=== PATIENT | male | born 1945 | race Caucasian/White ===

== ENCOUNTER → 2017-03-09 | Outpatient (CLI) | payer MEDICARE, OTHER ==
--- NOTE | 2017-03-09 12:01 | CT ---
EXAMINATION TYPE: CT chest wo con DATE OF EXAM: 03/09/2017 11:51 AM COMPARISON: CTA chest March 22, 2016. HISTORY: Shortness of breath per order. Difficulty breathing since recent heart attack per patient. CT DLP: 269 mGycm. Automated Exposure Control for Dose Reduction was Utilized. TECHNIQUE: CT scan of the thorax is performed without IV contrast. FINDINGS: LUNGS: There is background of emphysematous change redemonstrated. There is subpleural fibrosis and p eripheral reticulation identified bilaterally involving upper and lower lungs most prominent involvin g the right lung versus opposite left lung and more prominent in the lower lungs versus upper lungs. No significant progression from prior CT is seen. No new focal groundglass opacity or consolidation i s present. No pleural effusion or pneumothorax is seen. Mild bronchiectatic change in the left lower lobe is redemonstrated. Some areas of honeycombing along the periphery are noted MEDIASTINUM: Lack of IV contrast is noted to limit evaluation for mediastinal and especially hilar ad enopathy. There are no definitive greater than 1 cm new hilar or mediastinal lymph nodes. Prominent b ut subcentimeter paratracheal and subcarinal lymph nodes are redemonstrated and felt stable. Cardiome donna is again seen. No significant pericardial effusion is noted. Post CABG changes with mediastinal clips and sternal wires is redemonstrated. OTHER: Some mild fat replaced atrophy of pancreas is again seen. There are some calcifications scatte red throughout the spleen redemonstrated. Multilevel spurring in the spine is again seen. IMPRESSION: Chronic emphysematous change with pulmonary fibrosis seen bilaterally and diffusely but m ost pronounced in the periphery of the bilateral lower lobes, consider IPF. No convincing evidence fo r acute pulmonary process. No significant progression from prior CT is noted. Background of cardiomeg rae and post-CABG changes redemonstrated.
== END ==
LOC: RADCTMAIN 11:22
PROVIDERS: ATTEND Family Medicine
DX: J43.9 Emphysema, unspecified (principal); J84.10 Pulmonary fibrosis, unspecified; I51.7 Cardiomegaly
CPT/HCPCS: 71250; 93880; 93922

== ENCOUNTER → 2017-09-01 | Outpatient (CLI) | payer MEDICARE, OTHER ==
--- NOTE | 2017-09-01 08:56 | CT ---
EXAMINATION TYPE: CT chest wo con DATE OF EXAM: 09/01/2017 COMPARISON: 03/09/2017 HISTORY: Pulmonary fibrosis CT DLP: 748 mGycm. Automated Exposure Control for Dose Reduction was Utilized. TECHNIQUE: CT scan of the thorax is performed without IV contrast. FINDINGS: LUNGS: Peripheral honeycombing and reticular interstitial lobular thickening are seen diffusely throu ghout the lungs with a basilar gradient. The right lung is further progressed in the left. Right grea ter than left varicose type bronchiectasis also predominates in the basilar distribution and is simil ar to the prior. There is mild progression in comparison to the prior exam of 03/09/2017. No new pulmo nary mass is seen. Few areas of honeycombing are present on the right within the middle lobe, upper l obe and lower lobe. This is superimposed upon centrilobular mild centrilobular emphysematous changes. The lungs are grossly clear, there is no concerning parenchymal mass or nodule identified. There i s no pleural effusion or pneumothorax seen. The tracheobronchial tree is patent. MEDIASTINUM: Lack of IV contrast is noted to limit evaluation for mediastinal and especially hilar ad enopathy. There are no definitive greater than 1 cm hilar or mediastinal lymph nodes. Nonenlarged me diastinal lymph nodes and hilar lymph nodes are present. No axillary adenopathy. No cardiomegaly or p ericardial effusion is seen. OTHER: Mild pancreatic atrophy and punctate 2 mm nonobstructing bilateral renal calculi are seen in t he upper poles. Punctate choleliths are also noted as well as benign splenic granulomatous changes. S mall gastroesophageal hiatal hernia is noted. Multilevel degenerative changes of the thoracic spine a re seen. Median sternotomy wires are present. Post CABG changes are again present. IMPRESSION: 1. Mildly progressed pulmonary fibrosis superimposed upon emphysematous change. Again IPF is the lead ing differential diagnosis. No new focal consolidation. 2. New gynecomastia bilaterally, right greater than left, which may be drug-induced. Correlate with t he patient's medications. 3. Redemonstration of cardiomegaly and postoperative changes of the chest. 4. Incidental note of cholelithiasis, benign splenic granulomas, small gastroesophageal hiatal hernia , and nonobstructing punctate renal calculi.
== END | disposition home or self-care (01) ==
LOC: RADCTMAIN 08:07
PROVIDERS: ATTEND Internal Medicine Critical Care Medicine
DX: J84.10 Pulmonary fibrosis, unspecified (principal); J43.9 Emphysema, unspecified; N62 Hypertrophy of breast; I51.7 Cardiomegaly; Z98.890 Other specified postprocedural states
CPT/HCPCS: 71250

== ENCOUNTER 2018-05-13 18:53 | Inpatient (IN) | payer MEDICARE, OTHER ==
[2018-05-13] MEDS ORDERED: SODIUM CHLORIDE 0.9% 500 ML IV STA (18:58)
[2018-05-13] MEDS ORDERED: ASPIRIN 81 MG PO STA (18:58)
[2018-05-13 19:13] LABS: Basophils # (A) 0.1 k/uL (0-0.2); Basophils % (A) 1 %; Eosinophils # (A) 0.3 k/uL (0-0.7); Eosinophils % (A) 4 %; HCT 40.8 % (39.0-53.0); HGB 13.5 gm/dL (13.0-17.5); Lymphocytes # (A) 1.8 k/uL (1.0-4.8); Lymphocytes % (A) 24 %; MCH 30.6 pg (25.0-35.0); MCHC 33.2 g/dL (31.0-37.0); MCV 92.2 fL (80.0-100.0); Mean Platelet Volume 7.3; Monocytes # (A) 0.5 k/uL (0-1.0); Monocytes % (A) 7 %; Neutrophils # (A) 4.7 k/uL (1.3-7.7); Neutrophils % (A) 63 %; Platelet Count 210 k/uL (150-450); RBC 4.43 m/uL (4.30-5.90); RDW 14.2 % (11.5-15.5); WBC 7.4 k/uL (3.8-10.6)
[2018-05-13] MEDS ORDERED: HEPARIN SODIUM,PORCINE 5,000 UNIT/ML 1 ML VIAL IV ONE (19:13)
[2018-05-13] MEDS ORDERED: ATORVASTATIN 80 MG TAB PO STA (19:14)
[2018-05-13 19:23] LABS: Albumin 3.9 g/dL (3.5-5.0); Calcium 9.1 mg/dL (8.4-10.2); Magnesium 1.7 mg/dL (1.6-2.3); Potassium 4.7 mmol/L (3.5-5.1); Total Bilirubin 0.2 mg/dL (0.2-1.3); Total Protein 6.5 g/dL (6.3-8.2)
[2018-05-13 19:33] LABS: Partial Thromboplastin Time 22.4 sec (22.0-30.0); Prothrombin Time 9.7 sec (9.0-12.0)
[2018-05-13 19:35] LABS: Creatine Kinase MB 1.8 ng/mL (0.0-2.4)
[2018-05-13 19:39] LABS: Troponin I 0.085 ng/mL (0.000-0.034)
[2018-05-13] MEDS: METOPROLOL TARTRATE 5 MG/5 ML VIAL IVP STA ×2 (19:42→19:49)
[2018-05-13] MEDS: HEPARIN SOD,PORK IN 0.45% NACL 25,000 UNIT in 0.45% NACL 1 500ML.BAG IV SCH (19:45)
--- NOTE | 2018-05-13 20:48 | XR ---
EXAMINATION TYPE: XR chest 1V DATE OF EXAM: 05/13/2018 COMPARISON: 03/21/[address] 09/01/2017 HISTORY: 73-year-old male with chest pain, possible STEMI TECHNIQUE: Single frontal view of the chest is obtained. FINDINGS: Median sternotomy wires are present. Heart mild to moderately enlarged. Diffuse interstitial and airs pace opacities. No significant pleural effusion seen on the frontal view. IMPRESSION: Diffuse bilateral pulmonary edema.
[2018-05-13] MEDS ORDERED: FUROSEMIDE 10 MG/ML 4 ML VIAL IV STA (20:52)
[2018-05-13] MEDS ORDERED: NALOXONE 0.4 MG/ML 1 ML VIAL IV PRN (21:02)
[2018-05-13] MEDS ORDERED: ONDANSETRON 4 MG/2 ML VIAL IVP PRN (21:02)
[2018-05-13] MEDS ORDERED: MORPHINE SULFATE 2 MG/ML SYRINGE IV PRN (21:02)
[2018-05-13] MEDS ORDERED: INSULIN REGULAR 100 UNIT/ML VIAL IV ONE (21:06)
[2018-05-13] MEDS ORDERED: NITROGLYCERIN SL TABS 0.4 MG TAB SUBLINGUAL PRN (21:07)
--- NOTE | 2018-05-13 21:18 | ED ---
General Adult HPI - General Chief complaint: Chest Pain Stated complaint: Poss STEMI Time Seen by Provider: 05/13/18 18:58 Source: patient, EMS, RN notes reviewed, old records reviewed Mode of arrival: EMS Limitations: no limitations - History of Present Illness Initial comments: 73-year-old male presents with chest pain. Patient was brought in as priority [address] segment elevated DE. EKG by EMS was poor quality, there didn't appear to be some ST segment elevation in lead 3. Patient was given aspirin and nitroglycerin in route and was chest pain-free at the time my evaluation. His symptoms began approximately one hour prior to arrival. He does have history of coronary artery disease with bypass graft and previous stenting. He is on aspirin and Plavix. Recently his metoprolol was reduced secondary to low blood pressure. He also has history of primary fibrosis and congestive heart failure. - Related Data Home Medications Medication Instructions Recorded Confirmed Atenolol [Tenormin] 25 mg PO HS 03/16/14 10/18/16 Insulin Glargine [Lantus] 24 units SQ HS 03/16/14 10/18/16 Pioglitazone HCl [Actos] 45 mg PO AC-LUNCH 03/16/14 10/18/16 sitaGLIPtin [Januvia] 100 mg PO AC-LUNCH 03/16/14 10/18/16 Aspirin EC [Ecotrin Low Dose] 81 mg PO DAILY 03/22/16 10/18/16 Losartan [Cozaar] 25 mg PO QAM 05/05/16 10/18/16 Furosemide [Lasix] 80 mg PO QAM 05/27/16 10/18/16 B Complex-Vit C-Vit E-Zinc [Z-Bec] 1 tab PO DAILY 07/28/16 10/18/16 Clopidogrel [Plavix] 75 mg PO QAM 08/26/16 10/18/16 metFORMIN HCL 1,000 mg PO HS 08/26/16 10/18/16 metFORMIN HCL [Glucophage] 500 mg PO QAM 08/26/16 10/18/16 traZODone HCL 50 mg PO HS 09/07/16 10/18/16 Simvastatin [Zocor] 80 mg PO HS 10/12/16 10/18/16 Sucralfate [Carafate] 1 gm PO AC-TID 10/12/16 10/18/16 glipiZIDE [Glucotrol] 5 mg PO HS 10/12/16 10/18/16 glipiZIDE [Glucotrol] 10 mg PO AC-BRKFST 10/12/16 10/18/16 Allergies Allergy/AdvReac Type Severity Reaction Status Date / Time No Known Allergies Allergy Verified 10/18/16 07:32 Review of Systems ROS Statement: Those systems with pertinent positive or pertinent negative responses have been documented in the HPI. ROS Other: All systems not noted in ROS Statement are negative. Past Medical History Past Medical History: Heart Failure, Diabetes Mellitus, Deep Vein Thrombosis ( DVT), GERD/Reflux, Hyperlipidemia, Hypertension, Vascular Disorder Additional Past Medical History / Comment(s): DVT RT LEG 2008, HX OF DIABETIC ULCER LEFT GREAT TOE-NOW HEALED, STENTS LEFT LEG, SWELLING IN LEGS AND FEET. History of Any Multi-Drug Resistant Organisms: MRSA Date of last positivie culture/infection: 06/30/16 MDRO Source:: left foot Past Surgical History: Coronary Bypass/CABG, Heart Catheterization, Heart Catheterization With Stent, Hernia Repair, Orthopedic Surgery Additional Past Surgical History / Comment(s): all toes on the right foot amputated 04/2010, BILAT CATARACTS ,carotid endartectomy 09/07/2016 ,. 06/16/16 ARTHRECTOMY WITH STENT LEFT FEMORAL ARTERY. Past Anesthesia/Blood Transfusion Reactions: No Reported Reaction Date of Last Stent Placement:: 08/19/2010 Past Psychological History: No Psychological Hx Reported Smoking Status: Former smoker Past Alcohol Use History: None Reported Past Drug Use History: None Reported - Past Family History Father Family Medical History: Cancer Additional Family Medical History / Comment(s): passed from a DE at 63 Mother Family Medical History: Diabetes Mellitus, Myocardial Infarction (DE) Additional Family Medical History / Comment(s): passed from a DE at 63 Sister(s) Family Medical History: Cancer General Exam Limitations: no limitations General appearance: alert, in no apparent distress Head exam: Present: atraumatic, normocephalic Eye exam: Present: normal appearance, PERRL ENT exam: Present: normal exam Neck exam: Present: normal inspection. Absent: tenderness, meningismus Respiratory exam: Present: rales Cardiovascular Exam: Present: normal rhythm, tachycardia GI/Abdominal exam: Present: soft. Absent: distended, tenderness, guarding Extremities exam: Present: normal capillary refill, other (Mid foot amputation on the right). Absent: pedal edema Neurological exam: Present: alert, oriented X3, CN II-XII intact. Absent: motor sensory deficit Psychiatric exam: Present: normal affect, normal mood Skin exam: Present: warm, dry, intact. Absent: cyanosis, diaphoretic Course Vital Signs 05/13/18 05/13/18 05/13/18 18:54 19:25 19:37 Temperature 98.7 F Pulse Rate 96 Respiratory 131 H 17 Rate Blood Pressure 146/77 171/86 162/79 O2 Sat by Pulse 82 L 97 Oximetry 05/13/18 05/13/18 05/13/18 19:40 19:45 20:00 Temperature Pulse Rate 110 H 84 76 Respiratory 16 16 Rate Blood Pressure 167/78 161/72 O2 Sat by Pulse 95 93 L Oximetry 05/13/18 05/13/18 20:15 21:06 Temperature Pulse Rate 96 Respiratory 17 Rate Blood Pressure 155/76 138/76 O2 Sat by Pulse 95 Oximetry EKG Findings - EKG Comments: EKG Findings:: EKG obtained at 1856, sinus tachycardia with incomplete left bundle, there is ST segment depression in lead 1, aVL, and the lateral precordial leads, there is concern for ST segment elevation in lead 3. Repeat EKG shows sinus rhythm with first-degree AV block, there is incomplete left bundle, ST segment elevation remains in lead 3, there is ST segment depression in V1, aVL, and lateral precordial leads. Medical Decision Making - Medical Decision Making 73-year-old male presents as a priority 1, prehospital EKG shows ST segment elevation in lead 3, patient is pain-free at the time of arrival. Case is discussed with Dr. Galaviz, EKGs are faxed, given the fact there is small amount of ST segment elevation in lead [address] segment elevation in the adjacent leads of 2 and aVF as well as concern for a component of demand ischemia given a heart rate of 130 patient will not be taken to the [facility] as an ST segment elevated DE. I agree with this decision, this is not a clear ST segment elevated DE. Patient is immediately heparinized, he was given aspirin nitroglycerin by EMS. He is given labetalol for heart rate control and concern for demand ischemia. Patient remains asymptomatic and chest pain-free. Chest x-ray does show diffuse pulmonary edema, patient has history of heart failure, he is given Lasix in the emergency department and repeat echo will be obtained. Hemoglobin is stable, initial troponin is 0.085, there is mild elevation in the BNP consistent with chest x-ray. Patient is continued on heparin, he will be admitted for serial cardiac enzymes and cardiology consultation. Case discussed with Dr. Fernandez, who will accept admission - Lab Data Result diagrams: 05/13/18 18:51 05/13/18 18:51 Lab Results 05/13/18 05/13/18 05/13/18 Range/Units 18:51 18:51 18:51 WBC 7.4 (3.8-10.6) k/uL RBC 4.43 (4.30-5.90) m/uL Hgb 13.5 (13.0-17.5) gm/dL Hct 40.8 (39.0-53.0) % MCV 92.2 (80.0-100.0) fL MCH 30.6 (25.0-35.0) pg MCHC 33.2 (31.0-37.0) g/dL RDW 14.2 (11.5-15.5) % Plt Count 210 (150-450) k/uL Neutrophils % 63 % Lymphocytes % 24 % Monocytes % 7 % Eosinophils % 4 % Basophils % 1 % Neutrophils # 4.7 (1.3-7.7) k/uL Lymphocytes # 1.8 (1.0-4.8) k/uL Monocytes # 0.5 (0-1.0) k/uL Eosinophils # 0.3 (0-0.7) k/uL Basophils # 0.1 (0-0.2) k/uL PT (9.0-12.0) sec INR (<1.2) APTT (22.0-30.0) sec Sodium 141 (137-145) mmol/L Potassium 4.7 (3.5-5.1) mmol/L Chloride 102 (98-107) mmol/L Carbon Dioxide 28 (22-30) mmol/L Anion Gap 11 mmol/L BUN 19 (9-20) mg/dL Creatinine 1.20 (0.66-1.25) mg/dL Est GFR (CKD-EPI)AfAm 70 (>60 ml/min/1.73 sqM) Est GFR (CKD-EPI)NonAf 61 (>60 ml/min/1.73 sqM) Glucose 468 H* (74-99) mg/dL Calcium 9.1 (8.4-10.2) mg/dL Magnesium 1.7 (1.6-2.3) mg/dL Total Bilirubin 0.2 (0.2-1.3) mg/dL AST 21 (17-59) U/L ALT 31 (21-72) U/L Alkaline Phosphatase 129 H (38-126) U/L Total Creatine Kinase 67 (55-170) U/L CK-MB (CK-2) 1.8 (0.0-2.4) ng/mL CK-MB (CK-2) Rel Index 2.7 Troponin I 0.085 H* (0.000-0.034) ng/mL NT-Pro-B Natriuret Pep pg/mL Total Protein 6.5 (6.3-8.2) g/dL Albumin 3.9 (3.5-5.0) g/dL 05/13/18 05/13/18 Range/Units 18:51 18:51 WBC (3.8-10.6) k/uL RBC (4.30-5.90) m/uL Hgb (13.0-17.5) gm/dL Hct (39.0-53.0) % MCV (80.0-100.0) fL MCH (25.0-35.0) pg MCHC (31.0-37.0) g/dL RDW (11.5-15.5) % Plt Count (150-450) k/uL Neutrophils % % Lymphocytes % % Monocytes % % Eosinophils % % Basophils % % Neutrophils # (1.3-7.7) k/uL Lymphocytes # (1.0-4.8) k/uL Monocytes # (0-1.0) k/uL Eosinophils # (0-0.7) k/uL Basophils # (0-0.2) k/uL PT 9.7 (9.0-12.0) sec INR 1.0 (<1.2) APTT 22.4 (22.0-30.0) sec Sodium (137-145) mmol/L Potassium (3.5-5.1) mmol/L Chloride (98-107) mmol/L Carbon Dioxide (22-30) mmol/L Anion Gap mmol/L BUN (9-20) mg/dL Creatinine (0.66-1.25) mg/dL Est GFR (CKD-EPI)AfAm (>60 ml/min/1.73 sqM) Est GFR (CKD-EPI)NonAf (>60 ml/min/1.73 sqM) Glucose (74-99) mg/dL Calcium (8.4-10.2) mg/dL Magnesium (1.6-2.3) mg/dL Total Bilirubin (0.2-1.3) mg/dL AST (17-59) U/L ALT (21-72) U/L Alkaline Phosphatase (38-126) U/L Total Creatine Kinase (55-170) U/L CK-MB (CK-2) (0.0-2.4) ng/mL CK-MB (CK-2) Rel Index Troponin I (0.000-0.034) ng/mL NT-Pro-B Natriuret Pep 1510 pg/mL Total Protein (6.3-8.2) g/dL Albumin (3.5-5.0) g/dL Critical Care Time Critical Care Time: Yes Total Critical Care Time: 35 Disposition Clinical Impression: NSTEMI (non-ST elevated myocardial infarction), Congestive heart failure Disposition: ADMITTED IP TO THIS [facility] Condition: Serious Is patient prescribed a controlled substance at d/c from ED?: No Referrals: Roque Underwood DO [Primary Care Provider] - 1-2 days Decision to Admit Reason: Admit from EC Decision Date: 05/13/18 Decision Time: 21:17
[2018-05-13] MEDS ORDERED: INSULIN DETEMIR 100 UNIT/ML 10 ML VIAL SQ SCH (23:00)
[2018-05-13] MEDS ORDERED: glipiZIDE 5 MG TAB PO SCH (23:00)
[2018-05-13 23:16] LABS: Glucose,Whole Blood 257 mg/dL (75-99)
[2018-05-13] MEDS: METOPROLOL TARTRATE 25 MG TAB PO SCH (23:46)
[2018-05-13] MEDS: NITROGLYCERIN OINT 1 INCH/GM PACKET TOPICAL SCH (23:48)
[2018-05-13] MEDS ORDERED: ALPRAZolam 0.25 MG TAB PO PRN (23:51)
[2018-05-13] MEDS ORDERED: ACETAMINOPHEN TAB 500 MG TAB PO PRN (23:51)
[2018-05-13] MEDS ORDERED: TEMAZEPAM 15 MG CAP PO PRN (23:51)
[2018-05-14 03:44] LABS: Basophils % (A) 1 %; Eosinophils # (A) 0.3 k/uL (0-0.7); Eosinophils % (A) 4 %; HCT 36.2 % (39.0-53.0); HGB 12.4 gm/dL (13.0-17.5); Lymphocytes % (A) 26 %; MCH 30.4 pg (25.0-35.0); MCHC 34.2 g/dL (31.0-37.0); Mean Platelet Volume 6.9; Monocytes # (A) 0.6 k/uL (0-1.0); Monocytes % (A) 8 %; Neutrophils # (A) 4.4 k/uL (1.3-7.7); Neutrophils % (A) 59 %; Platelet Count 193 k/uL (150-450); RBC 4.07 m/uL (4.30-5.90); RDW 13.8 % (11.5-15.5); WBC 7.6 k/uL (3.8-10.6)
[2018-05-14 03:57] LABS: ALT 38 U/L (21-72); AST 76 U/L (17-59); Albumin 3.6 g/dL (3.5-5.0); Alkaline Phosphatase 80 U/L (38-126); Anion Gap 8 mmol/L; Blood Urea Nitrogen 19 mg/dL (9-20); Calcium 8.6 mg/dL (8.4-10.2); Carbon Dioxide 28 mmol/L (22-30); Chloride 106 mmol/L (98-107); Glucose 191 mg/dL (74-99); Sodium 142 mmol/L (137-145); Total Bilirubin 0.3 mg/dL (0.2-1.3)
[2018-05-14] MEDS: HEPARIN SODIUM,PORCINE 5,000 UNIT/ML 1 ML VIAL IV PRN ×2 (04:09→22:12)
[2018-05-14] MEDS: glipiZIDE 5 MG TAB PO SCH ×2 (06:20→21:21)
[2018-05-14] MEDS: NITROGLYCERIN OINT 1 INCH/GM PACKET TOPICAL SCH ×2 (06:21→06:54)
[2018-05-14] MEDS: PANTOPRAZOLE 40 MG TABLET PO SCH (06:22)
[2018-05-14 06:24] LABS: Glucose,Whole Blood 145 mg/dL (75-99)
[2018-05-14] MEDS ORDERED: glipiZIDE 5 MG TAB PO SCH (07:30)
[2018-05-14] MEDS ORDERED: metFORMIN 500 MG TAB PO SCH ×2 (07:30→21:00)
--- NOTE | 2018-05-14 07:38 | XR ---
EXAMINATION TYPE: XR chest 2V DATE OF EXAM: 05/14/2018 COMPARISON: 05/13/2018, CT 09/01/2017, and radiograph 03/21/2016 HISTORY: 73 year-old male shortness of breath, difficulty in breathing TECHNIQUE: Frontal and lateral views FINDINGS: The patient's prior CT is reviewed. There is underlying chronic interstitial lung disease. Median riaz rnotomy wires are present. Heart remains mildly enlarged. Overall stable diffuse findings of medium i nterstitial densities throughout. No significant pleural effusion. IMPRESSION: After reviewing the patient's prior CT, findings are compatible with underlying extensive chronic int erstitial lung disease. Superimposed acute exacerbation or interstitial edema difficult to exclude. O verall appearance stable from 05/13/2018.
[2018-05-14] MEDS ORDERED: ASPIRIN 325 MG TAB PO STA (08:09)
[2018-05-14] MEDS: ASPIRIN 81 MG PO SCH (08:13)
[2018-05-14] MEDS: METOPROLOL TARTRATE 25 MG TAB PO SCH ×2 (08:16→21:06)
[2018-05-14 08:18] LABS: Basophils % (A) 0 %; Eosinophils # (A) 0.3 k/uL (0-0.7); Eosinophils % (A) 4 %; HCT 36.6 % (39.0-53.0); HGB 12.3 gm/dL (13.0-17.5); Lymphocytes % (A) 24 %; MCHC 33.6 g/dL (31.0-37.0); MCV 89.3 fL (80.0-100.0); Mean Platelet Volume 6.9; Monocytes # (A) 0.7 k/uL (0-1.0); Monocytes % (A) 8 %; Neutrophils # (A) 5.4 k/uL (1.3-7.7); Neutrophils % (A) 63 %; Platelet Count 202 k/uL (150-450); RDW 13.8 % (11.5-15.5); WBC 8.7 k/uL (3.8-10.6)
[2018-05-14 08:44] LABS: Anion Gap 8 mmol/L; Blood Urea Nitrogen 19 mg/dL (9-20); Calcium 8.6 mg/dL (8.4-10.2); Carbon Dioxide 30 mmol/L (22-30); Chloride 107 mmol/L (98-107); Glucose 138 mg/dL (74-99); Potassium 3.8 mmol/L (3.5-5.1); Sodium 145 mmol/L (137-145)
[2018-05-14] MEDS ORDERED: MIDAZOLAM 2 MG/2 ML VIAL ONE (08:47)
[2018-05-14] MEDS ORDERED: diphenhydrAMINE 50 MG/ML 1 ML VIAL ONE (08:47)
[2018-05-14] MEDS ORDERED: Pirfenidone [Esbriet] 267 MG PO SCH (09:00)
[2018-05-14] MEDS ORDERED: SODIUM CHLORIDE 0.9% 1,000 ML IV ONE (09:04)
[2018-05-14] MEDS ORDERED: diphenhydrAMINE 50 MG/ML 1 ML VIAL IVP ONE (09:17)
[2018-05-14] MEDS ORDERED: MIDAZOLAM 2 MG/2 ML VIAL IVP ONE (09:18)
[2018-05-14] MEDS ORDERED: LIDOCAINE 2% SYG (PF) 100 MG/5 ML MISCELLANE ONE ×2 (09:22)
[2018-05-14] MEDS ORDERED: BIVALIRUDIN BOLUS 250 MG/50 ML IV ONE (09:42)
[2018-05-14] MEDS ORDERED: BIVALIRUDIN 250 MG in SODIUM CHLORIDE 0.9% 50 ML IV ONE (09:43)
[2018-05-14] MEDS ORDERED: IOPAMIDOL-370 100ML BTL INJ ONE (10:02)
[2018-05-14] MEDS ORDERED: SODIUM CHLORIDE 0.9% 1,000 ML IV SCH (10:15)
[2018-05-14] MEDS ORDERED: NITROGLYCERIN SL TABS 0.4 MG TAB SUBLINGUAL PRN (10:15)
[2018-05-14] MEDS ORDERED: RX INFO: IV CONTRAST WAS GIVEN 1 EACH MISC MISCELLANE PRN (10:15)
[2018-05-14] MEDS ORDERED: ATROPINE SULFATE 0.1 MG/ML 10ML SYRINGE IV PRN (10:15)
[2018-05-14] MEDS ORDERED: MAG HYDROX/AL HYDROX/SIMETH 30 ML CUP PO PRN (10:15)
[2018-05-14] MEDS ORDERED: ZOLPIDEM 5 MG TAB PO PRN (10:15)
--- NOTE | 2018-05-14 10:28 | CONS ---
CONSULTATION DATE OF SERVICE: 05/14/2018. HISTORY: This is a 73-year-old gentleman who was seen by me in the emergency room briefly when he arrived. He is 73 years of age, has history of CAD, prior bypass surgery in 1997. He also has history of pulmonary fibrosis, carotid disease status post right carotid endarterectomy performed in 2015. He has type 2 diabetes mellitus and peripheral vascular disease and underwent stenting of left superficial femoral artery performed in 2016 also. Yesterday he went to a and he took his portable oxygen with him, which he carries. He felt the oxygen was running out and he came out rather hurriedly and had discomfort in the chest. He felt very short of breath and after coming to the emergency room he was tachycardic with an IVCD type picture on the EKG. There was evidence of possible old inferior OK with nonspecific ST changes without clear-cut ST elevation. I decided to pursue medical therapy and gave him some beta blockers to slow down the heart rate. He promptly improved and did not have any further chest pain. His second troponin this morning is up to 17, suggestive of non-ST elevation OK in a patient with known CAD with prior bypass surgery, diabetes, hypertension, hyperlipidemia, and carotid disease. He is comfortable at the time of my evaluation. PAST MEDICAL HISTORY: 1. CAD with aortocoronary bypass surgery in 1997. He had 4 grafts at that time. DAVENPORT was placed to LAD and vein graft to the obtuse marginal, vein graft to the diagonal and RCA. Over the course of time, in 2009 when he had a cardiac cath, his RCA graft and diagonal grafts were occluded, but DAVENPORT to LAD and obtuse marginal graft were patent. He was doing well on medical therapy. 2. Hypertension. 3. Hypercholesterolemia. 4. Type 2 diabetes mellitus. 5. History of peripheral arterial disease with right carotid endarterectomy and left superficial femoral artery stenting performed in the past. This patient used to see Dr. Juana Galaviz in the past and currently sees Dr. Aguilar. At the time of my evaluation, he is resting comfortably without symptoms. MEDICATIONS: At home include atenolol 25 mg daily, the dose has been reduced, Lantus insulin, Januvia, Actos, aspirin, Cozaar, Lasix, Plavix 75 mg daily, metformin, simvastatin 80 mg daily, and glipizide. ALLERGIES: None. REVIEW OF SYSTEMS: Unremarkable other than above-mentioned facts. Specifically, patient has exertional shortness of breath, has pulmonary fibrosis. He also has chest tightness with activity, some claudication pain but not significant. He also has history of dizziness, occasionally lightheadedness, but no syncope. EXAMINATION: Blood pressure is 130/70, pulse rate is 70 per minute and regular. HEENT unremarkable. Fundus was not examined by me. Neck is supple. There is evidence of scar noted. JVD is 1 cm. No carotid bruit. Heart exam reveals S1, S2 heard normally. There is a short systolic murmur. Lungs reveal bilateral diffuse scattered rales suggestive of pulmonary fibrosis. Abdomen is soft, nontender. Lower extremities reveal palpable femoral pulses. Diminished distal pulses. A right foot amputation is noted. EKG this morning revealed a sinus mechanism with very subtle inferior ST elevation and Q-waves. LAB DATA: Reveals elevated troponin. IMPRESSION: 1. Acute non-ST elevation myocardial infarction. .. 2. Exacerbation of chronic obstructive pulmonary disease. 3. Pulmonary fibrosis. 4. History of coronary artery disease and prior bypass surgery with known to patent grafts, DAVENPORT and the obtuse marginal graft. 5. History of peripheral artery disease with right carotid endarterectomy and left superficial femoral stenting. RECOMMENDATIONS: I discussed the findings and recommendations with the patient, and daughter. I am recommending coronary angiography based on findings and intervention. Patient wished to be a no intubation, but in the circumstances, we will intubate the patient if necessary. He understands this as does the family and they are agreeable with this. We will proceed with coronary angiography and PCI based on the findings. The risks, benefits, options, rationale were explained. The patient and family understand and wish to proceed. MMODL / IJN: [id number] /
--- NOTE | 2018-05-14 10:49 | CC ---
CARDIAC CATHETERIZATION REPORT DATE OF SERVICE: 05/13/2018. PROCEDURES PERFORMED: 1. Left heart catheterization, coronary angiography and selective injection of bypass grafts. 2. PTCA of saphenous vein graft to the obtuse marginal branch of circumflex. PERFORMED BY: Dr. Chitra Galaviz. SEDATION: Moderate conscious sedation time was 48 minutes. Patient was monitored closely with oxygen saturation, hemodynamics and EKG. CLINICAL INFORMATION: Mr. Braxton Arreaga is a 73-year-old gentleman with history of type 2 diabetes, hypertension, hyperlipidemia, CAD with bypass surgery in 1997 with prior myocardial infarction and PTCA of tejon circumflex performed in the 2009, which was occluded in 2017. Two of his vein grafts to the diagonal and RCA were occluded. He had only a patent DAVENPORT to LAD and vein graft to the obtuse marginal and his last cardiac cath was in 2017 at [facility] and was advised medical therapy with overall poor prognosis. There was diffuse disease in the LAD at that time. He presented yesterday with episode of increasing shortness of breath, had equivocal ST-segment changes and troponin elevation suggestive of non-ST elevation PR. The clinical picture suggested more or less a tachycardia mediated myocardial injury given his diffuse nature of disease. However, because of his significant known CAD, was advised coronary angiography after due discussion with the patient's family and the patient, his and daughter. PROCEDURE NOTE: Under local anesthesia and strict aseptic precautions, a 6-Danish introducer was placed in the right femoral artery. Standard left Gilmar catheter was used for selective coronary angiography of the left coronary artery. A Kaykay catheter was used to perform selective coronary angiography of the tejon RCA as well as of the DAVENPORT. I used an AR2 catheter to perform selective coronary angiography of the vein graft to the obtuse marginal, which was opened in 2017 according to the patient's family. The patient was found to have a total occlusion of the vein graft to the obtuse marginal. He was advised intervention that was performed in the same setting. LV pressures were obtained, but LV gram was not performed. CARDIAC CATHETERIZATION FINDINGS: The left ventricular end-diastolic pressure was about 22 mmHg without any gradient across aortic valve. CORONARY ANGIOGRAPHY FINDINGS: LEFT MAIN CORONARY ARTERY: This is a calcified vessel, patent, but has distal disease of 40% and bifurcates into LAD and circumflex. LEFT ANTERIOR DESCENDING CORONARY ARTERY: This vessel is totally occluded after two small septal and diagonal branches with limited antegrade flow. LEFT POSTERIOR CIRCUMFLEX CORONARY ARTERY: This vessel is totally occluded. It appears that there is a stump right of the left main. Very little antegrade flow is noted. RIGHT CORONARY ARTERY: This vessel is totally occluded, seen as a stump with limited antegrade flow. LEFT INTERNAL MAMMARY ARTERY GRAFT TO LAD: This graft is widely patent in its origin, course and insertion site. Opacified LAD is patent but there is diffuse disease both proximal and distal to the insertion site and there are several septal branches and also PDA branch of RCA that is filled by this graft. There is severe diffuse disease throughout the entire opacified LAD as well as septal and diagonal branches. SAPHENOUS VEIN GRAFT TO THE OBTUSE MARGINAL BRANCH OF CIRCUMFLEX: This graft was open in the cardiac cath performed here in 2009 and according to the family in 2017. This graft is now closed, seen as a stump. This may not be an acute occlusion because it appears to be heavily calcified within the graft. RECOMMENDATION: I unscrubbed, went and spoke to the patient's family and also talked to the patient at length. Options are limited. This is going to be very difficult PTCA involving a vein graft that is 20 years old and appears to be heavily calcified and seen as a stump. This may not be an acute occlusion. His troponin elevation is probably related to a tachycardia mediated myocardial damage in the setting of a severe diffuse disease. However, given the circumstances, I will recommend that we will try to open the vein graft to the circumflex which is his best option and the risk is high. This was explained to the patient and family and then I proceeded to perform the procedure. PTCA PROCEDURE DETAILS: Initially, I used a AR2 guide catheter and a Whisper wire. I could not cross the lesion. Wire went just a little bit beyond the total occlusion. The guide support was inadequate. I changed over to a left bypass guide catheter. With this, I was able to cannulate, had a better guide support. I crossed the lesion maybe to a very small extent and gave 2 inflations with a 2.0 balloon. I could not make any meaningful progress. After multiple attempts, I gave up with the understanding that this is an unsuccessful PTCA, which appears to be a total occlusion of a vein graft. The sheath was sutured and patient was sent to the room in a stable condition. He is already on aspirin and Plavix. I am recommending that we continue current medical therapy. He received Angiomax bolus and infusion. This was an unsuccessful PTCA in what seems to be a chronic occlusion of the vein graft to the obtuse marginal. Results were discussed with the patient. Prognosis remains poor and patient and family are fully aware of this. MMHUMAIRAL / SHELIAN: [id number] /
[2018-05-14 12:20] LABS: Glucose,Whole Blood 121 mg/dL (75-99)
[2018-05-14] MEDS ORDERED: ATROPINE SULFATE 0.1 MG/ML 10ML SYRINGE ONE (12:49)
[2018-05-14] MEDS: FUROSEMIDE 10 MG/ML 4 ML VIAL IV SCH ×2 (14:23→22:14)
[2018-05-14] MEDS: SPIRONOLACTONE 25 MG TAB PO SCH (14:24)
[2018-05-14] MEDS: ISOSORBIDE MONONITRATE ER 60 MG TAB.ER.24H PO SCH ×2 (14:30→21:06)
[2018-05-14] MEDS: RANOLAZINE 500 MG TAB.ER.12H PO SCH ×2 (14:31→21:22)
[2018-05-14] MEDS: LINAGLIPTIN 5 MG TABLET PO SCH (14:32)
[2018-05-14] MEDS: PIOGLITAZONE 45 MG TAB PO SCH (14:32)
[2018-05-14] MEDS: CLOPIDOGREL 75 MG TAB PO SCH (14:33)
[2018-05-14] MEDS: LOSARTAN 25 MG TAB PO SCH (14:33)
--- NOTE | 2018-05-14 16:03 | P.CNPUL ---
History of Present Illness Consult date: 05/14/18 Reason for consult: chest pain History of present illness: 73-year-old male patient presented with chest pain. The patient is known to have coronary artery disease, diabetes mellitus hypertension and peripheral vascular disease and has been treated for a DVT of the right lower extremity back in 2008. His echocardiogram from 2016 also showed moderate degree of concentric ventricular hypertrophy and a left ejection fraction 45-50% and moderate degree of aortic stenosis with a peak pressure of 14 and a valve area of 1.3 cm. There is also mild to moderate mitral regurgitation without evidence of any significant pulmonary hypertension. The patient has undergone previous coronary artery bypass surgery and he has also undergone previous coronary intervention and stenting. He has undergone a previous carotid endarterectomy back in 2016 and previous atherectomy and stent insertion of the left femoral artery. The patient ruled in for acute myocardial infarction. The patient was found to have initial troponin of 17.4. His EKG showing a sinus rhythm with a first-degree AV block. Nonspecific intraventricular conduction block and there is a T-wave abnormality in the lateral leads. He was kept on aspirin. He was started on IV heparin. He is also on Plavix. He is on metoprolol 25 mg by mouth twice a day. The cardiology consultation was also requested. Based on all this, the patient was taken to emergent cardiac catheterization the patient on underwent emergent PTCA to saphenous vein graft to obtuse marginal branch of circumflex. He is currently on IV heparin. The patient is also known to have pulmonary fibrosis. The patient has possibly a component of IPF. The patient was placed on Esbriet therapy 3 tablets 3 times a day. His most recent primary function tests from 2018 showed a drop in FVC down to 41% of predicted and the total lung capacity of 47% of predicted and diffusion capacity of 60% of predicted. This is consistent with severe restrictive lung disease secondary to pulmonary fibrosis. He thinks he has chronic exertional dyspnea yet despite his advanced pulmonary fibrosis the patient is unable to perform activities of daily today life without any major difficulties. He is oxygen dependent and uses somewhat between 2-3 L of oxygen nasal cannula and his concentrator. Review of Systems Constitutional Constitutional: no fever, no night sweats, no significant weight gain, no significant weight loss, exercise intolerance Eyes Eyes: no dry eyes, no vision change, no irritation ENMT Ears: no difficulty hearing, no ear pain Nose: no frequent nosebleeds, no nose problems, no sinus problems Mouth/Throat: no sore throat, no bleeding gums, no snoring, no dry mouth, no mouth ulcers, no oral abnormalities, no teeth problems Cardiovascular Cardiovascular: chest pain as discussed above, no arm pain on exertion, no shortness of breath when lying down, no palpitations, no known heart murmur, shortness of breath when walking (claudication) Respiratory Respiratory: no wheezing, no coughing up blood, no sleep apnea, cough, shortness of breath (hypoxic respiratory failure on oxygen at 2 L) Gastrointestinal Gastrointestinal: no abdominal pain, no nausea, no vomiting, no constipation, normal appetite, no diarrhea, not vomiting blood, no dyspepsia, no GERD Genitourinary Genitourinary: no incontinence, no difficulty urinating, no hematuria, no increased frequency Musculoskeletal Musculoskeletal: no muscle aches, no muscle weakness, no arthralgias/joint pain , no back pain, no swelling in the extremities Integumentary Skin: no abnormal mole, no jaundice, no rashes, no laceration Neurologic Neurologic: no loss of consciousness, no weakness, no numbness, no seizures, no dizziness, no migraines, no headaches, no tremor Psychiatric Psych: no depression, no sleep disturbances, feeling safe in a relationship, no alcohol abuse, no anxiety, no hallucinations, no suicidal thoughts Endocrine Endocrine: no fatigue Hematologic/Lymphatic Hematologic/Lymphatic no swollen glands, no bruising, no excessive bleeding Allergic/Immunologic Allergy/Immunologic: no runny nose, no sinus pressure, no itching, no hives, no frequent sneezing Past Medical History Past Medical History: Heart Failure, Diabetes Mellitus, Deep Vein Thrombosis ( DVT), GERD/Reflux, Hyperlipidemia, Hypertension, Myocardial Infarction ([place]), Vascular Disorder Additional Past Medical History / Comment(s): Idiopathic pulmonary fibrosis, coronary artery disease with previous bypass surgery, aortic stenosis with a valve area of 1.3 cm, CHF with mild impairment of the LV function, peripheral vascular disease, DVT of the right lower extremity back in 2008, diabetes mellitus, diabetic foot ulcer involving the left great toe, chronic lower extremity edema, chronic hypoxic respiratory failure, previous history of non- ST segment elevation myocardial infarction Last Myocardial Infarction Date:: 05/13/2018 History of Any Multi-Drug Resistant Organisms: MRSA Date of last positivie culture/infection: 06/30/16 MDRO Source:: left foot Past Surgical History: Coronary Bypass/CABG, Heart Catheterization, Heart Catheterization With Stent, Hernia Repair, Orthopedic Surgery Additional Past Surgical History / Comment(s): CABG done 1997, all toes on the right foot amputated 04/2010, BILAT CATARACTS ,carotid endartectomy 09/07/2016 , . 06/16/16 ARTHRECTOMY WITH STENT LEFT FEMORAL ARTERY. Past Anesthesia/Blood Transfusion Reactions: No Reported Reaction Date of Last Stent Placement:: 08/19/2010 Past Psychological History: No Psychological Hx Reported Smoking Status: Former smoker Past Alcohol Use History: None Reported Additional Past Alcohol Use History / Comment(s): quit 1970, smoked 10 years starting age 11, 3ppd Past Drug Use History: None Reported - Past Family History Father Family Medical History: Cancer Additional Family Medical History / Comment(s): passed from a [place] at 63 Mother Family Medical History: Diabetes Mellitus, Myocardial Infarction ([place]) Additional Family Medical History / Comment(s): passed from a [place] at 63 Sister(s) Family Medical History: Cancer Medications and Allergies Home Medications Medication Instructions Recorded Confirmed Type Insulin Glargine [Lantus] 22 units SQ HS 03/16/14 05/14/18 History Pioglitazone HCl [Actos] 45 mg PO DAILY 03/16/14 05/14/18 History Aspirin EC [Ecotrin Low Dose] 81 mg PO DAILY 03/22/16 05/14/18 History Losartan [Cozaar] 25 mg PO QAM 05/05/16 05/14/18 History Furosemide [Lasix] 40 mg PO BID 05/27/16 05/14/18 History metFORMIN HCL 500 mg PO HS 08/26/16 05/14/18 History metFORMIN HCL [Glucophage] 1,000 mg PO QAM 08/26/16 05/14/18 History Atorvastatin [Lipitor] 40 mg PO HS 05/13/18 05/14/18 History Clopidogrel [Plavix] 75 mg PO DAILY 05/13/18 05/14/18 History Metoprolol Succinate (ER) [Toprol 25 mg PO DAILY 05/13/18 05/14/18 History Xl] Pantoprazole Sodium 40 mg PO DAILY 05/13/18 05/14/18 History Pirfenidone [Esbriet] 801 mg PO TID-W/MEALS 05/13/18 05/14/18 History Spironolactone [Aldactone] 25 mg PO DAILY 05/13/18 05/14/18 History glyBURIDE [Diabeta] 5 mg PO HS 05/13/18 05/14/18 History glyBURIDE [Diabeta] 10 mg PO AC-BRKFST 05/13/18 05/14/18 History sitaGLIPtin [Januvia] 100 mg PO DAILY 05/13/18 05/14/18 History Allergies Allergy/AdvReac Type Severity Reaction Status Date / Time No Known Allergies Allergy Verified 05/14/18 12:03 Physical Exam Vitals: Vital Signs Temp Pulse Pulse Resp BP BP Pulse Ox 05/14/18 13:26 55 L 16 112/58 95 05/14/18 13:20 55 L 112/58 95 05/14/18 13:16 55 L 100/57 95 05/14/18 13:11 53 L 113/55 95 05/14/18 13:06 54 L 100/53 95 05/14/18 12:57 55 L 110/57 05/14/18 08:00 96.2 F L 56 L 20 128/60 98 05/14/18 03:54 54 L 20 05/14/18 03:52 97.2 F L 54 L 20 112/56 96 05/14/18 00:00 96.6 F L 67 20 127/61 97 05/13/18 22:30 71 20 05/13/18 22:29 96.6 F L 71 22 146/67 95 05/13/18 22:11 70 16 137/81 97 05/13/18 21:15 72 17 135/71 95 05/13/18 21:06 138/76 05/13/18 20:15 96 17 155/76 95 05/13/18 20:00 76 16 161/72 93 L 05/13/18 19:45 84 16 167/78 95 05/13/18 19:40 110 H 05/13/18 19:37 162/79 05/13/18 19:25 96 17 171/86 97 05/13/18 18:54 98.7 F 131 H 146/77 82 L Intake and Output 05/13/18 05/14/18 05/14/18 22:59 06:59 14:59 Intake Total 166.744 116 Balance 166.744 116 Intake: IV 116 Intake, IV Titration 166.744 Amount Heparin Sod,Pork in 0.45% 166.744 NaCl 25,000 unit In 0.45 % NaCl 1 500ml.bag @ 10.7 UNITS/KG/HR 19.89 mls/hr IV .Q24H REPLACED BY [facility] Rx#: [id number] Other: Voiding Method Toilet Toilet Toilet Urinal Urinal Urinal # Voids 1 1 Weight 95.6 kg 95.6 kg General Appearance no diaphoresis, no respiratory distress, speech not interrupted by breaths, no dyspnea, no pallor, not cachectic, well nourished, appears well (calm and comfortable HEENT no pursed lip breathing, no jugular venous distention, no mucous membrane cyanosis, no perioral cyanosis, mallampati classification: class 1, Mallampati Classification: Class 2 Chest no barrel chest, no retractions, no sternocleidomastoid muscle contractions, no supraclavicular retractions, no intercostal retractions, no prolonged expiratory wheezing, no decreased air movement, no rhonchi, no hyperinflation, decreased air movement, adventitious sounds: rales / crackles: bilaterally: midlung montes (coarse crackles in the lung bases bilaterally) Heart no right ventricular heave, no distant heart sounds, no s3 gallop ( he has a thoracotomy scar which is dry clean and intact.) And there is a systolic ejection grade 3 murmur GI bowel sounds: hyperactive (borborygmi), bowel sounds: diminished or absent Extremities no cyanosis, no clubbing, no edema Neurologic no decreased mental status, no somnolence, no confusion General Appearance normal, (normal) normal except as noted Results - Laboratory Findings CBC and BMP: 05/14/18 07:39 05/14/18 07:39 PT/INR, D-dimer PT 9.7 sec (9.0-12.0) 05/13/18 18:51 INR 1.0 (<1.2) 05/13/18 18:51 Abnormal lab findings: Abnormal Labs 05/13/18 05/13/18 05/13/18 18:51 18:51 23:14 RBC Hgb Hct APTT Glucose 468 H* POC Glucose (mg/dL) 257 H AST Alkaline Phosphatase 129 H Troponin I 0.085 H* Total Protein 05/14/18 05/14/18 05/14/18 03:30 03:30 03:30 RBC 4.07 L Hgb 12.4 L Hct 36.2 L APTT 30.2 H Glucose 191 H POC Glucose (mg/dL) AST 76 H Alkaline Phosphatase Troponin I Total Protein 6.0 L 05/14/18 05/14/18 05/14/18 06:16 06:23 07:39 RBC 4.10 L Hgb 12.3 L Hct 36.6 L APTT Glucose POC Glucose (mg/dL) 145 H AST Alkaline Phosphatase Troponin I 17.400 H* Total Protein 05/14/18 05/14/18 07:39 11:53 RBC Hgb Hct APTT Glucose 138 H POC Glucose (mg/dL) 121 H AST Alkaline Phosphatase Troponin I Total Protein - Diagnostic Findings Chest x-ray: image reviewed Assessment and Plan Plan: Assessment 1 Acute non-STEMI. The patient was in for an acute [place] with initial troponin of 17. Currently on IV heparin. Also, patient aspirin and Plavix and beta blockers. Patient is catheterization and PTCA of saphenous vein graft to obtuse marginal branch of circumflex. Patient is post bypass surgery that was done in 1997. He has had also previous PTCA of the [place] circumflex done in 2009 which was subsequently found to be occluded 2016. He has to of his vein grafts to diagonal and RCA are occluded. The DAVENPORT to LAD is patent 2 chest pain secondary to above 3 IPF with severe restrictive lung disease and chronic hypoxic respiratory failure maintained on oxygen at 3 L/m nasal cannula 4 chronic hypoxic respiratory failure 5 coronary artery disease bypass surgery 6 aortic stenosis with a valve area of 1.3 cm based on echocardiogram from 2016 7 diabetes mellitus 8 diabetic foot ulcer, history of 9 peripheral vascular disease with previous vascular intervention and stenting of the right lower extremity 10 current artery disease with previous endarterectomy 11 remote history of DVT of lower extremity back in 2008 12 hyperlipidemia 13 hypertension Plan She is currently resting in bed. Currently on a combination of aspirin and Plavix and IV heparin. Chest pain-free. Repeat echocardiogram in a.m. He IPF is stable. Chest x-rays consistent with IPF and the patient is on oxygen at 3 L /m nasal cannula. We'll resume Esbriet 3 tablets 3 times a day with the next 24 -48 hours. We'll continue to follow.
--- NOTE | 2018-05-14 16:46 | P.HPIM ---
History of Present Illness This is the first time taking care of the patient This is a pleasant 73 years old male with past medical history of heart failure , diabetes mellitus, DVT, GERD, hyperlipidemia, hypertension, vascular disease, idiopathic pulmonary fibrosis, aortic stenosis with valve area 1.3 cm, peripheral vascular disease on the right lower extremity in 2008, diabetic foot ulcer, history of MRSA infection. Echo from 2016 shows concentric LVH [moderate ] and EF 45-50% with moderate degree of aortic stenosis Presents because of chest pain of one-day duration. The chest pain was in the left upper chest radiating to the left shoulders and neck, pressure and quality was severe as per patient, not associated with nausea vomiting or sweating. No dyspnea In the ED on presentation patient was found to have high troponin of 17.4 with EKG shows sinus rhythm at 100 bpm, with QTC 454 and first-degree AV block and T wave abnormality concerning for ischemia. He was treated with IV heparin, metoprolol and aspirin and cardiology consultation for emergent cardiac cath. Health Science Specialist evaluated the patient and hand underwent PTCA procedure on 2017. A nickel operator could not cross the lesions with the guide catheter and whisper wire and this was unsuccessful PTCA as per nickel operator. Patient currently lying in the chair with no distress. He is chest pain-free. No dyspnea. Review of Systems CONSTITUTIONAL: No fever, no malaise, no fatigue. HEENT: No recent visual problems or hearing problems. Denied any sore throat. CARDIOVASCULAR: No orthopnea, PND, no palpitations, no syncope. PULMONARY: No shortness of breath, no cough, no hemoptysis. GASTROINTESTINAL: No diarrhea, no nausea, no vomiting, no abdominal pain. Normoactive bowel sounds. NEUROLOGICAL: No headaches, no weakness, no numbness. HEMATOLOGICAL: Denies any bleeding or petechiae. GENITOURINARY: Denies any burning micturition, frequency, or urgency. MUSCULOSKELETAL/RHEUMATOLOGICAL: Denies any joint pain, swelling, or any muscle pain. ENDOCRINE: Denies any polyuria or polydipsia. Past Medical History Past Medical History: Heart Failure, Diabetes Mellitus, Deep Vein Thrombosis ( DVT), GERD/Reflux, Hyperlipidemia, Hypertension, Myocardial Infarction (AK), Vascular Disorder Additional Past Medical History / Comment(s): Idiopathic pulmonary fibrosis, coronary artery disease with previous bypass surgery, aortic stenosis with a valve area of 1.3 cm, CHF with mild impairment of the LV function, peripheral vascular disease, DVT of the right lower extremity back in 2008, diabetes mellitus, diabetic foot ulcer involving the left great toe, chronic lower extremity edema, chronic hypoxic respiratory failure, previous history of non- ST segment elevation myocardial infarction Last Myocardial Infarction Date:: 05/13/2018 History of Any Multi-Drug Resistant Organisms: MRSA Date of last positivie culture/infection: 06/30/16 MDRO Source:: left foot Past Surgical History: Coronary Bypass/CABG, Heart Catheterization, Heart Catheterization With Stent, Hernia Repair, Orthopedic Surgery Additional Past Surgical History / Comment(s): CABG done 1997, all toes on the right foot amputated 04/2010, BILAT CATARACTS ,carotid endartectomy 09/07/2016 , . 06/16/16 ARTHRECTOMY WITH STENT LEFT FEMORAL ARTERY. Past Anesthesia/Blood Transfusion Reactions: No Reported Reaction Date of Last Stent Placement:: 08/19/2010 Past Psychological History: No Psychological Hx Reported Smoking Status: Former smoker Past Alcohol Use History: None Reported Additional Past Alcohol Use History / Comment(s): quit 1970, smoked 10 years starting age 11, 3ppd Past Drug Use History: None Reported - Past Family History Father Family Medical History: Cancer Additional Family Medical History / Comment(s): passed from a AK at 63 Mother Family Medical History: Diabetes Mellitus, Myocardial Infarction (AK) Additional Family Medical History / Comment(s): passed from a AK at 63 Sister(s) Family Medical History: Cancer Medications and Allergies Home Medications Medication Instructions Recorded Confirmed Type Insulin Glargine [Lantus] 22 units SQ HS 03/16/14 05/14/18 History Pioglitazone HCl [Actos] 45 mg PO DAILY 03/16/14 05/14/18 History Aspirin EC [Ecotrin Low Dose] 81 mg PO DAILY 03/22/16 05/14/18 History Losartan [Cozaar] 25 mg PO QAM 05/05/16 05/14/18 History Furosemide [Lasix] 40 mg PO BID 05/27/16 05/14/18 History metFORMIN HCL 500 mg PO HS 08/26/16 05/14/18 History metFORMIN HCL [Glucophage] 1,000 mg PO QAM 08/26/16 05/14/18 History Atorvastatin [Lipitor] 40 mg PO HS 05/13/18 05/14/18 History Clopidogrel [Plavix] 75 mg PO DAILY 05/13/18 05/14/18 History Metoprolol Succinate (ER) [Toprol 25 mg PO DAILY 05/13/18 05/14/18 History Xl] Pantoprazole Sodium 40 mg PO DAILY 05/13/18 05/14/18 History Pirfenidone [Esbriet] 801 mg PO TID-W/MEALS 05/13/18 05/14/18 History Spironolactone [Aldactone] 25 mg PO DAILY 05/13/18 05/14/18 History glyBURIDE [Diabeta] 5 mg PO HS 05/13/18 05/14/18 History glyBURIDE [Diabeta] 10 mg PO AC-BRKFST 05/13/18 05/14/18 History sitaGLIPtin [Januvia] 100 mg PO DAILY 05/13/18 05/14/18 History Allergies Allergy/AdvReac Type Severity Reaction Status Date / Time No Known Allergies Allergy Verified 05/14/18 12:03 Physical Exam Vitals: Vital Signs Temp Pulse Pulse Resp BP BP Pulse Ox 05/14/18 13:26 55 L 16 112/58 95 05/14/18 13:20 55 L 112/58 95 05/14/18 13:16 55 L 100/57 95 05/14/18 13:11 53 L 113/55 95 05/14/18 13:06 54 L 100/53 95 05/14/18 12:57 55 L 110/57 05/14/18 08:00 96.2 F L 56 L 20 128/60 98 05/14/18 03:54 54 L 20 05/14/18 03:52 97.2 F L 54 L 20 112/56 96 05/14/18 00:00 96.6 F L 67 20 127/61 97 05/13/18 22:30 71 20 05/13/18 22:29 96.6 F L 71 22 146/67 95 05/13/18 22:11 70 16 137/81 97 05/13/18 21:15 72 17 135/71 95 05/13/18 21:06 138/76 05/13/18 20:15 96 17 155/76 95 05/13/18 20:00 76 16 161/72 93 L 05/13/18 19:45 84 16 167/78 95 05/13/18 19:40 110 H 05/13/18 19:37 162/79 05/13/18 19:25 96 17 171/86 97 05/13/18 18:54 98.7 F 131 H 146/77 82 L Intake and Output 05/14/18 05/14/18 05/14/18 06:59 14:59 22:59 Intake Total 166.744 356 Balance 166.744 356 Intake: IV 116 Intake, IV Titration 166.744 Amount Heparin Sod,Pork in 0.45% 166.744 NaCl 25,000 unit In 0.45 % NaCl 1 500ml.bag @ 10.7 UNITS/KG/HR 19.89 mls/hr IV .Q24H [facility] Rx#: [id number] Oral 240 Other: Voiding Method Toilet Toilet Urinal Urinal # Voids 1 1 Weight 95.6 kg GENERAL: The patient is alert and oriented x3, not in any acute distress. Well developed, well nourished. HEENT: Pupils are round and equally reacting to light. EOMI. No scleral icterus. No conjunctival pallor. Normocephalic, atraumatic. No pharyngeal erythema. No thyromegaly. CARDIOVASCULAR: S1 and S2 present. No murmurs, rubs, or gallops. PULMONARY: Chest is clear to auscultation, no wheezing or crackles. ABDOMEN: Soft, nontender, nondistended, normoactive bowel sounds. No palpable organomegaly. MUSCULOSKELETAL: No joint swelling or deformity. EXTREMITIES: No cyanosis, clubbing, or pedal edema. NEUROLOGICAL: Gross neurological examination did not reveal any focal deficits. SKIN: No rashes. Results CBC & Chem 7: 05/14/18 07:39 05/14/18 07:39 Labs: Abnormal Lab Results - Last 24 Hours (Table) 05/13/18 05/13/18 05/13/18 Range/Units 18:51 18:51 23:14 RBC (4.30-5.90) m/uL Hgb (13.0-17.5) gm/dL Hct (39.0-53.0) % APTT (22.0-30.0) sec Glucose 468 H* (74-99) mg/dL POC Glucose (mg/dL) 257 H (75-99) mg/dL AST (17-59) U/L Alkaline Phosphatase 129 H (38-126) U/L Troponin I 0.085 H* (0.000-0.034) ng/mL Total Protein (6.3-8.2) g/dL 05/14/18 05/14/18 05/14/18 Range/Units 03:30 03:30 03:30 RBC 4.07 L (4.30-5.90) m/uL Hgb 12.4 L (13.0-17.5) gm/dL Hct 36.2 L (39.0-53.0) % APTT 30.2 H (22.0-30.0) sec Glucose 191 H (74-99) mg/dL POC Glucose (mg/dL) (75-99) mg/dL AST 76 H (17-59) U/L Alkaline Phosphatase (38-126) U/L Troponin I (0.000-0.034) ng/mL Total Protein 6.0 L (6.3-8.2) g/dL 05/14/18 05/14/18 05/14/18 Range/Units 06:16 06:23 07:39 RBC 4.10 L (4.30-5.90) m/uL Hgb 12.3 L (13.0-17.5) gm/dL Hct 36.6 L (39.0-53.0) % APTT (22.0-30.0) sec Glucose (74-99) mg/dL POC Glucose (mg/dL) 145 H (75-99) mg/dL AST (17-59) U/L Alkaline Phosphatase (38-126) U/L Troponin I 17.400 H* (0.000-0.034) ng/mL Total Protein (6.3-8.2) g/dL 05/14/18 05/14/18 Range/Units 07:39 11:53 RBC (4.30-5.90) m/uL Hgb (13.0-17.5) gm/dL Hct (39.0-53.0) % APTT (22.0-30.0) sec Glucose 138 H (74-99) mg/dL POC Glucose (mg/dL) 121 H (75-99) mg/dL AST (17-59) U/L Alkaline Phosphatase (38-126) U/L Troponin I (0.000-0.034) ng/mL Total Protein (6.3-8.2) g/dL Thrombosis Risk Factor Assmnt - Choose All That Apply Any of the Below Risk Factors Present?: No Other Risk Factors: Yes Each Risk Factor Represents 2 Points: Age 61-74 years Each Risk Factor Represents 3 Points: History of DVT/PE Other congenital or acquired thrombophilia - If yes, enter type in comment: No Thrombosis Risk Factor Assessment Total Risk Factor Score: 5 Thrombosis Risk Factor Assessment Level: High Risk Assessment and Plan Plan: -Acute non-STEMI patient has been evaluated by nickel operator and underwent an successful PTCA of the obtuse marginal branch of circumflex artery. Patient continue with aspirin, Plavix and beta blockers and IV heparin -Chest pain syndrome, secondary to above -Pulmonary fibrosis, pulmonary evaluation is appreciated his IPF looks his stable and patient can't oxygen 3 L via nasal cannula. Continue with Esbriet later on -Aortic stenosis with surface area of 1.3 cm on echo of 2016 -Diabetes mellitus on the glipizide , Lingagliptin and Actos. And Levemir 24 units -Hyperlipidemia continue with statin -Hypertension continue with losartan, metoprolol, Gautam tone, Lasix -Diabetic foot ulcers, continue same treatment -PVD, continue with same treatment DVT prophylaxis, is already on aspirin GI prophylaxis continue with Protonix CODE STATUS discussed with the patient and at bedside both inform me he wanted chest compression but he doesn't want intubation discussed with the staff and placed patients with code with instructions as DO NOT INTUBATE or DO NOT INTUBATE Prognosis is guarded and very poor given the severity and complexity of his disease Time with Patient: Greater than 30
[2018-05-14 17:01] LABS: Glucose,Whole Blood 141 mg/dL (75-99)
[2018-05-14] MEDS: ESBRIET 267 MG PO SCH ×2 (17:44→21:22)
[2018-05-14] MEDS ORDERED: ATORVASTATIN 40 MG TAB PO SCH (21:00)
[2018-05-14 21:04] LABS: Glucose,Whole Blood 189 mg/dL (75-99)
[2018-05-14] MEDS: INSULIN DETEMIR 100 UNIT/ML 10 ML VIAL SQ SCH (21:46)
[2018-05-14] MEDS: HEPARIN SOD,PORK IN 0.45% NACL 25,000 UNIT in 0.45% NACL 1 500ML.BAG IV SCH (21:47)
[2018-05-15 06:06] LABS: Glucose,Whole Blood 133 mg/dL (75-99)
[2018-05-15 06:21] LABS: Basophils # (A) 0.1 k/uL (0-0.2); Basophils % (A) 1 %; Eosinophils # (A) 0.4 k/uL (0-0.7); Eosinophils % (A) 6 %; HGB 11.4 gm/dL (13.0-17.5); Lymphocytes # (A) 1.7 k/uL (1.0-4.8); Lymphocytes % (A) 25 %; MCH 30.6 pg (25.0-35.0); MCHC 33.6 g/dL (31.0-37.0); Mean Platelet Volume 6.6; Monocytes # (A) 0.5 k/uL (0-1.0); Monocytes % (A) 7 %; Neutrophils # (A) 4.1 k/uL (1.3-7.7); Neutrophils % (A) 60 %; Platelet Count 194 k/uL (150-450); RBC 3.73 m/uL (4.30-5.90); RDW 14.1 % (11.5-15.5); WBC 6.8 k/uL (3.8-10.6)
[2018-05-15 06:30] LABS: Anion Gap 6 mmol/L; Blood Urea Nitrogen 19 mg/dL (9-20); Calcium 8.3 mg/dL (8.4-10.2); Carbon Dioxide 30 mmol/L (22-30); Chloride 107 mmol/L (98-107); Glucose 129 mg/dL (74-99); Sodium 143 mmol/L (137-145)
[2018-05-15] MEDS: PANTOPRAZOLE 40 MG TABLET PO SCH (06:47)
[2018-05-15] MEDS: glipiZIDE 5 MG TAB PO SCH ×2 (06:48→21:45)
[2018-05-15] MEDS: CLOPIDOGREL 75 MG TAB PO SCH (08:28)
[2018-05-15] MEDS: ASPIRIN 81 MG PO SCH (08:28)
[2018-05-15] MEDS: LOSARTAN 25 MG TAB PO SCH (08:28)
[2018-05-15] MEDS: ISOSORBIDE MONONITRATE ER 60 MG TAB.ER.24H PO SCH ×2 (08:28→20:15)
[2018-05-15] MEDS: METOPROLOL TARTRATE 25 MG TAB PO SCH ×2 (08:29→20:15)
[2018-05-15] MEDS: ESBRIET 267 MG PO SCH ×3 (08:29→21:45)
[2018-05-15] MEDS: SPIRONOLACTONE 25 MG TAB PO SCH (08:30)
[2018-05-15] MEDS: RANOLAZINE 500 MG TAB.ER.12H PO SCH ×2 (08:30→20:15)
--- NOTE | 2018-05-15 10:25 | P.PN ---
Subjective This is a pleasant 73 years old male with past medical history of heart failure , diabetes mellitus, DVT, GERD, hyperlipidemia, hypertension, vascular disease, idiopathic pulmonary fibrosis, aortic stenosis with valve area 1.3 cm, peripheral vascular disease on the right lower extremity in 2009, diabetic foot ulcer, history of MRSA infection. Echo from 2016 shows concentric LVH [moderate ] and EF 45-50% with moderate degree of aortic stenosis Presents because of chest pain of one-day duration. The chest pain was in the left upper chest radiating to the left shoulders and neck, pressure and quality was severe as per patient, not associated with nausea vomiting or sweating. No dyspnea In the ED on presentation patient was found to have high troponin of 17.4 with EKG shows sinus rhythm at 100 bpm, with QTC 454 and first-degree AV block and T wave abnormality concerning for ischemia. He was treated with IV heparin, metoprolol and aspirin and cardiology consultation for emergent cardiac cath. Mold Yard Supervisor evaluated the patient and hand underwent PTCA procedure on 2017. A supervisor beet end could not cross the lesions with the guide catheter and whisper wire and this was unsuccessful PTCA as per supervisor beet end. Patient currently lying in the chair with no distress. He is chest pain-free. No dyspnea. On 05/15/2018 Patient was lying in bed. No more chest pain or dyspnea. Patient is still on heparin drip and aspirin and Plavix. Patient underwent echocardiogram as per and the result is pending. His WBC from today shows 6.8K. Hemoglobin 11.4 and creatinine 0.89. Sodium 143 potassium 4.0. Patient was restarted on Lipitor 80 mg by mouth daily per Cardiology team. Objective - Vital Signs Vital signs: Vital Signs Temp 96.7 F L 05/15/18 04:00 Pulse 70 05/15/18 04:00 Resp 16 05/15/18 04:00 BP 100/49 05/15/18 04:00 Pulse Ox 97 05/15/18 04:00 Intake & Output 05/14/18 05/15/18 05/15/18 18:59 06:59 18:59 Intake Total 301.611 6283.455 Balance 567.596 7329.455 Weight 97.3 kg Intake: IV 116 Intake, IV Titration 333.256 747.455 Amount Heparin Sod,Pork in 0.45% 333.256 222.455 NaCl 25,000 unit In 0.45 % NaCl 1 500ml.bag @ 10.7 UNITS/KG/HR 19.89 mls/hr IV .Q24H [facility] Rx#: [id number] Sodium Chloride 0.9% 1, 525 000 ml @ 75 mls/hr IV . [id number] [facility] Rx#:[id number] Oral 240 300 Other: Voiding Method Toilet Toilet Urinal Urinal # Voids 1 2 - Exam GENERAL: The patient is alert and oriented x3, not in any acute distress. Well developed, well nourished. HEENT: Pupils are round and equally reacting to light. EOMI. No scleral icterus. No conjunctival pallor. Normocephalic, atraumatic. No pharyngeal erythema. No thyromegaly. CARDIOVASCULAR: S1 and S2 present. No murmurs, rubs, or gallops. PULMONARY: Chest is clear to auscultation, no wheezing or crackles. ABDOMEN: Soft, nontender, nondistended, normoactive bowel sounds. No palpable organomegaly. MUSCULOSKELETAL: No joint swelling or deformity. EXTREMITIES: No cyanosis, clubbing, or pedal edema. NEUROLOGICAL: Gross neurological examination did not reveal any focal deficits. SKIN: No rashes. - Labs CBC & Chem 7: 05/15/18 05:57 05/15/18 05:57 Labs: Abnormal Lab Results - Last 24 Hours (Table) 05/14/18 05/14/18 05/14/18 Range/Units 11:53 16:41 20:50 RBC (4.30-5.90) m/uL Hgb (13.0-17.5) gm/dL Hct (39.0-53.0) % APTT (22.0-30.0) sec Glucose (74-99) mg/dL POC Glucose (mg/dL) 121 H 141 H 189 H (75-99) mg/dL Calcium (8.4-10.2) mg/dL 05/14/18 05/15/18 05/15/18 Range/Units 21:28 05:40 05:57 RBC 3.73 L (4.30-5.90) m/uL Hgb 11.4 L (13.0-17.5) gm/dL Hct 34.0 L (39.0-53.0) % APTT 31.8 H (22.0-30.0) sec Glucose (74-99) mg/dL POC Glucose (mg/dL) 133 H (75-99) mg/dL Calcium (8.4-10.2) mg/dL 05/15/18 05/15/18 Range/Units 05:57 05:57 RBC (4.30-5.90) m/uL Hgb (13.0-17.5) gm/dL Hct (39.0-53.0) % APTT 66.1 H (22.0-30.0) sec Glucose 129 H (74-99) mg/dL POC Glucose (mg/dL) (75-99) mg/dL Calcium 8.3 L (8.4-10.2) mg/dL Assessment and Plan Plan: -Acute non-STEMI patient has been evaluated by supervisor beet end and underwent an successful PTCA of the obtuse marginal branch of circumflex artery. Patient continue with aspirin, Plavix and beta blockers and IV heparin. Echo: pending -Chest pain syndrome, secondary to above -Pulmonary fibrosis, pulmonary evaluation is appreciated his IPF looks his stable and patient can't oxygen 3 L via nasal cannula. Continue with Esbriet later on -Aortic stenosis with surface area of 1.3 cm on echo of 2016 -Diabetes mellitus on the glipizide , Lingagliptin and Actos. And Levemir 24 units -Hyperlipidemia continue with statin -Hypertension continue with losartan, metoprolol, Gautam tone, Lasix -Diabetic foot ulcers, continue same treatment -PVD, continue with same treatment DVT prophylaxis, is already on aspirin GI prophylaxis continue with Protonix CODE STATUS discussed with the patient and at bedside both inform me he wanted chest compression but he doesn't want intubation discussed with the staff and placed patients with code with instructions as DO NOT INTUBATE or DO NOT INTUBATE Prognosis is guarded and very poor given the severity and complexity of his disease
[2018-05-15 11:08] VITALS: BMI 30.3
--- NOTE | 2018-05-15 11:17 | P.PN ---
Subjective Progress Note Date: 05/15/18 Principal diagnosis: Acute non-ST elevation myocardial infarction 73-year-old male patient presented with chest pain. The patient is known to have coronary artery disease, diabetes mellitus hypertension and peripheral vascular disease and has been treated for a DVT of the right lower extremity back in 2008. His echocardiogram from 2016 also showed moderate degree of concentric ventricular hypertrophy and a left ejection fraction 45-50% and moderate degree of aortic stenosis with a peak pressure of 14 and a valve area of 1.3 cm. There is also mild to moderate mitral regurgitation without evidence of any significant pulmonary hypertension. The patient has undergone previous coronary artery bypass surgery and he has also undergone previous coronary intervention and stenting. He has undergone a previous carotid endarterectomy back in 2016 and previous atherectomy and stent insertion of the left femoral artery. The patient ruled in for acute myocardial infarction. The patient was found to have initial troponin of 17.4. His EKG showing a sinus rhythm with a first-degree AV block. Nonspecific intraventricular conduction block and there is a T-wave abnormality in the lateral leads. He was kept on aspirin. He was started on IV heparin. He is also on Plavix. He is on metoprolol 25 mg by mouth twice a day. The cardiology consultation was also requested. Based on all this, the patient was taken to emergent cardiac catheterization the patient on underwent emergent PTCA to saphenous vein graft to obtuse marginal branch of circumflex. He is currently on IV heparin. The patient is also known to have pulmonary fibrosis. The patient has possibly a component of IPF. The patient was placed on Esbriet therapy 3 tablets 3 times a day. His most recent primary function tests from 2018 showed a drop in FVC down to 41% of predicted and the total lung capacity of 47% of predicted and diffusion capacity of 60% of predicted. This is consistent with severe restrictive lung disease secondary to pulmonary fibrosis. He thinks he has chronic exertional dyspnea yet despite his advanced pulmonary fibrosis the patient is unable to perform activities of daily today life without any major difficulties. He is oxygen dependent and uses somewhat between 2-3 L of oxygen nasal cannula and his concentrator. Patient was reevaluated today on 05/15/2018, doing much better, denies any specific complaints, patient had cardiac catheterization and unsuccessful PTCA of a chronic vein graft to the obtuse marginal, hence patient is on medical therapy as recommended by cardiology. No chest pain, no cough, he does have chronic shortness of breath secondary to IPF, he is O2 dependent. Objective - Vital Signs Vital signs: Vital Signs Temp 97.1 F L 05/15/18 08:30 Pulse 68 05/15/18 08:30 Resp 16 05/15/18 08:30 BP 121/79 05/15/18 08:30 Pulse Ox 95 05/15/18 08:30 Intake & Output 05/14/18 05/15/18 05/15/18 18:59 06:59 18:59 Intake Total 086.239 6422.455 400 Balance 268.515 9035.455 400 Weight 97.3 kg 97.3 kg Intake: IV 116 Intake, IV Titration 333.256 747.455 Amount Heparin Sod,Pork in 0.45% 333.256 222.455 NaCl 25,000 unit In 0.45 % NaCl 1 500ml.bag @ 10.7 UNITS/KG/HR 19.89 mls/hr IV .Q24H [facility] Rx#: [id number] Sodium Chloride 0.9% 1, 525 000 ml @ 75 mls/hr IV . [id number] [facility] Rx#:[id number] Oral 240 300 400 Other: Voiding Method Toilet Toilet Toilet Urinal Urinal Urinal # Voids 1 2 - Exam Physical Exam: Revealed a 73-year-old white male very pleasant, in no distress. Head: Atraumatic, normocephalic. HEENT:[Neck is supple.] [No neck masses.] [No thyromegaly.] [No JVD.] Chest: [Clear throughout, Velcro rales and crackles heard at the bases bilaterally. Cardiac Exam: [Normal S1 and S2, no S3 gallop, no murmur.] Abdomen: [Soft, nontender, no megaly, no rebound, no guarding, normal bowel sounds.] Extremities: [No clubbing, no edema, no cyanosis.] Neurological Exam: [No focal neurologic deficit.] Lymphatics: No lymphadenopathy. Psychiatric: Normal mood affect and mental status examination. Skin: No rashes. - Labs CBC & Chem 7: 05/15/18 05:57 05/15/18 05:57 Labs: Abnormal Lab Results - Last 24 Hours (Table) 05/14/18 05/14/18 05/14/18 Range/Units 11:53 16:41 20:50 RBC (4.30-5.90) m/uL Hgb (13.0-17.5) gm/dL Hct (39.0-53.0) % APTT (22.0-30.0) sec Glucose (74-99) mg/dL POC Glucose (mg/dL) 121 H 141 H 189 H (75-99) mg/dL Calcium (8.4-10.2) mg/dL 05/14/18 05/15/18 05/15/18 Range/Units 21:28 05:40 05:57 RBC 3.73 L (4.30-5.90) m/uL Hgb 11.4 L (13.0-17.5) gm/dL Hct 34.0 L (39.0-53.0) % APTT 31.8 H (22.0-30.0) sec Glucose (74-99) mg/dL POC Glucose (mg/dL) 133 H (75-99) mg/dL Calcium (8.4-10.2) mg/dL 05/15/18 05/15/18 Range/Units 05:57 05:57 RBC (4.30-5.90) m/uL Hgb (13.0-17.5) gm/dL Hct (39.0-53.0) % APTT 66.1 H (22.0-30.0) sec Glucose 129 H (74-99) mg/dL POC Glucose (mg/dL) (75-99) mg/dL Calcium 8.3 L (8.4-10.2) mg/dL Assessment and Plan Assessment: 1 Acute non-STEMI. The patient was in for an acute CT with initial troponin of 17. Currently on IV heparin. Also, patient aspirin and Plavix and beta blockers. Patient is catheterization and PTCA of saphenous vein graft to obtuse marginal branch of circumflex. Patient is post bypass surgery that was done in 1997. He has had also previous PTCA of the [place]am[place] circumflex done in 2009 which was subsequently found to be occluded 2016. He has to of his vein grafts to diagonal and RCA are occluded. The [place] to LAD is patent 2 chest pain secondary to above 3 IPF with severe restrictive lung disease and chronic hypoxic respiratory failure maintained on oxygen at 3 L/m nasal cannula 4 chronic hypoxic respiratory failure 5 coronary artery disease bypass surgery 6 aortic stenosis with a valve area of 1.3 cm based on echocardiogram from 2016 7 diabetes mellitus 8 diabetic foot ulcer, history of 9 peripheral vascular disease with previous vascular intervention and stenting of the right lower extremity 10 current artery disease with previous endarterectomy 11 remote history of DVT of lower extremity back in 2008 12 hyperlipidemia 13 hypertension Plan: Continue present treatment plan, discharge planning once cleared by cardiology. Continue medical therapy. Follow-up with Dr. Rojo on outpatient basis for his pulmonary fibrosis. And his chronic hypoxic respiratory failure. Time with Patient: Less than 30
--- NOTE | 2018-05-15 11:37 | P.PN ---
Subjective Progress Note Date: 05/15/18 Principal diagnosis: Acute inferior wall FL This is a pleasant 73-year-old gentleman who follows with Dr. Barker in the office. He has a known history of diabetes, hypertension, hyperlipidemia , family history of premature coronary artery disease, CAD/PVD, COPD with 24 hour home O2 use, history of coronary artery bypass grafting surgery in 1997, patient also subsequent to that underwent stenting of the proximal circumflex in 2009. He presented to the hospital on Tuesday with an acute inferior wall myocardial infarction. Patient was taken to the cardiac catheterization lab by Dr. Margi Galaviz on Tuesday where patient underwent unsuccessful PTCA of an occlusion in the vein graft to the obtuse marginal. Right coronary artery was totally occluded, saphenous a stump with limited antegrade flow. Patient was seen and examined this morning, denied any chest pain, breathing overall is stable. Blood pressure 120/78 with heart rate in the 60s, afebrile, 95% on 5 L of oxygen. White blood cell count 6.8, hemoglobin 11.4, platelet count 194. Sodium 143, potassium 4.0, BUN 19, creatinine 0.8. The patient is currently on aspirin 81 mg daily, Lipitor 40 mg daily, Plavix 75 mg daily, Imdur 60 mg twice a day, losartan 25 mg daily, metoprolol 25 mg by mouth twice a day. Echocardiogram with Doppler study remains pending. Objective - Vital Signs Vital signs: Vital Signs Temp 97.1 F L 05/15/18 08:30 Pulse 68 05/15/18 08:30 Resp 16 05/15/18 08:30 BP 121/79 05/15/18 08:30 Pulse Ox 95 05/15/18 08:30 Intake & Output 05/14/18 05/15/18 05/15/18 18:59 06:59 18:59 Intake Total 937.055 2168.455 400 Balance 146.528 2707.455 400 Weight 97.3 kg 97.3 kg Intake: IV 116 Intake, IV Titration 333.256 747.455 Amount Heparin Sod,Pork in 0.45% 333.256 222.455 NaCl 25,000 unit In 0.45 % NaCl 1 500ml.bag @ 10.7 UNITS/KG/HR 19.89 mls/hr IV .Q24H [facility] Rx#: [id number] Sodium Chloride 0.9% 1, 525 000 ml @ 75 mls/hr IV . [id number] [facility] Rx#:[id number] Oral 240 300 400 Other: Voiding Method Toilet Toilet Toilet Urinal Urinal Urinal # Voids 1 2 - Exam PHYSICAL EXAMINATION: GENERAL: This is a 73-year-old gentleman in no apparent distress at time of my examination. HEENT: Head is atraumatic, normocephalic. Pupils equal, round. Sclera anicteric. Conjunctiva are clear. Mucous membranes of the mouth are moist. Neck is supple. There is no elevated jugular venous pressure.] bruit is heard. HEART EXAMINATION: Heart S1, S2 normal. No murmur or gallop heard. CHEST EXAMINATION: Lungs are clear to auscultation and precussion. No chest wall tenderness is noted on palpation or with deep breathing. ABDOMEN: Soft, nontender. Bowel sounds are heard. No organomegaly noted. Right groin is soft, no evidence of any hematoma. EXTREMITIES: 1+ peripheral pulses with no evidence of peripheral edema and no calf tenderness noted. NEUROLOGIC patient is awake, alert and oriented -3. . - Labs CBC & Chem 7: 05/15/18 05:57 05/15/18 05:57 Labs: Abnormal Lab Results - Last 24 Hours (Table) 05/14/18 05/14/18 05/14/18 Range/Units 11:53 16:41 20:50 RBC (4.30-5.90) m/uL Hgb (13.0-17.5) gm/dL Hct (39.0-53.0) % APTT (22.0-30.0) sec Glucose (74-99) mg/dL POC Glucose (mg/dL) 121 H 141 H 189 H (75-99) mg/dL Calcium (8.4-10.2) mg/dL 05/14/18 05/15/18 05/15/18 Range/Units 21:28 05:40 05:57 RBC 3.73 L (4.30-5.90) m/uL Hgb 11.4 L (13.0-17.5) gm/dL Hct 34.0 L (39.0-53.0) % APTT 31.8 H (22.0-30.0) sec Glucose (74-99) mg/dL POC Glucose (mg/dL) 133 H (75-99) mg/dL Calcium (8.4-10.2) mg/dL 05/15/18 05/15/18 Range/Units 05:57 05:57 RBC (4.30-5.90) m/uL Hgb (13.0-17.5) gm/dL Hct (39.0-53.0) % APTT 66.1 H (22.0-30.0) sec Glucose 129 H (74-99) mg/dL POC Glucose (mg/dL) (75-99) mg/dL Calcium 8.3 L (8.4-10.2) mg/dL Assessment and Plan Plan: Assessment and plan #1 acute inferior wall myocardial infarction status post failed angioplasty of the circumflex artery. #2 known history of coronary artery disease with prior bypass surgery in 1997, prior PCI's. #3 hypertension #4 hyperlipidemia #5 diabetes #6 PAD/PVD #7 COPD with chronic home O2 use Plan We will continue aspirin 81 mg daily, Lipitor we will increase to 80 mg daily, continue Plavix 75 mg daily, Imdur 60 twice a day, losartan 25 mg daily, Aldactone 12-1/2 mg daily and metoprolol 25 mg one tablet by mouth twice a day. We will review the patient's echocardiogram with Doppler study. Plan for possible discharge home in 48 hours if stable. DNP note has been reviewed, I agree with a documented findings and plan of care. Patient was seen and examined.
[2018-05-15 12:22] LABS: Glucose,Whole Blood 188 mg/dL (75-99)
[2018-05-15] MEDS: PIOGLITAZONE 45 MG TAB PO SCH (12:32)
[2018-05-15] MEDS: LINAGLIPTIN 5 MG TABLET PO SCH (12:32)
--- NOTE | 2018-05-15 12:46 | ECHOF ---
Referral Reason:chf MEASUREMENTS -------- HEIGHT: 177.8 cm WEIGHT: 97.1 kg BP: 100/49 RVIDd: 3.4 cm (< 3.3) IVSd: 1.3 cm (0.6 - 1.1) LVIDd: 5.3 cm (3.9 - 5.3) LVPWd: 1.3 cm (0.6 - 1.1) IVSs: 1.9 cm LVIDs: 4.3 cm LVPWs: 1.6 cm LA Diam: 4.2 cm (2.7 - 3.8) LAESV Index (A-L): 33.84 ml/m Ao Diam: 3.8 cm (2.0 - 3.7) AV Cusp: 1.3 cm (1.5 - 2.6) MV EXCURSION: 23.818 mm (> 18.000) MV EF SLOPE: 106 mm/s (70 - 150) EPSS: 1.0 cm MV E Arias: 1.16 m/s MV DecT: 215 ms MV A Arias: 0.83 m/s MV E/A Ratio: 1.40 AV maxP.03 mmHg AV meanP.69 mmHg FINDINGS -------- Sinus rhythm with extra systolic beats. This was a technically adequate study. The left ventricular size is normal. There is mild concentric left ventricular hypertrophy. Overa ll left ventricular systolic function is mild-moderately impaired with, an EF between 40 - 45 %. Ba lucretia inferior LV wall motion is hypokinetic. Basal inferoseptal LV wall motion is hypokinetic. The right ventricle is normal in size. LA is midly dilated 29-33ml/m2. The right atrium is normal in size. 2 ml of Lumason was utilized for enhancement of images. There is mild aortic valve sclerosis. There is mild aortic regurgitation. There is mild aortic st enosis present. Peak/mean gradient across the Aortic Valve is 19.03mmHg / 8.69mmHg. The mitral valve leaflets are mildly thickened. There is trace to mild mitral regurgitation. Mild tricuspid regurgitation present. Trace/mild (physiologic) pulmonic regurgitation. The aortic root is dilated measuring 3.8cm. Normal inferior vena cava with normal inspiratory collapse consistent with estimated right atrial pre ssure of 5 mmHg. The inferior vena cava is mildly dilated. There is no pericardial effusion. CONCLUSIONS -------- 1. Sinus rhythm with extra systolic beats. 2. This was a technically adequate study. 3. The left ventricular size is normal. 4. There is mild concentric left ventricular hypertrophy. 5. Basal inferior LV wall motion is hypokinetic. 6. Basal inferoseptal LV wall motion is hypokinetic. 7. The right ventricle is normal in size. 8. LA is midly dilated 29-33ml/m2. 9. The right atrium is normal in size. 10. 2 ml of Lumason was utilized for enhancement of images. 11. There is mild aortic valve sclerosis. 12. There is mild aortic regurgitation. 13. There is mild aortic stenosis present. 14. Peak/mean gradient across the Aortic Valve is 19.03mmHg / 8.69mmHg. 15. The mitral valve leaflets are mildly thickened. 16. There is trace to mild mitral regurgitation. 17. Trace/mild (physiologic) pulmonic regurgitation. 18. The aortic root is dilated measuring 3.8cm. 19. Normal inferior vena cava with normal inspiratory collapse consistent with estimated right atrial pressure of 5 mmHg. 20. The inferior vena cava is mildly dilated. 21. There is no pericardial effusion. EXHIBIT CLEANER: Sunshine Arrington RDCS
--- NOTE | 2018-05-15 15:04 | CDI ---
Last Revision, October 2017 Documentation Clarification Form Date: 05/15/18 From: Daylin Mcdonald RN, CCDS Admit Date: 05/13/2018 9:17:00 PM Patient Name: Braxton Arreaga Visit Number: [id number] Discharge Date: ATTENTION: The Clinical Documentation Specialists (CDI) and [facility] Coding Staff appreciate your assistance in clarifying documentation. Please respond to the clarification below the line at the bottom and electronically sign. The CDI & [facility] Coding staff will review the response and follow-up if needed. Please note: Queries are made part of the Legal Health Record. If you have any questions, please contact the author of this message via ITS. Dr. Essence Galaviz History/Risk Factors:. CAD, Pulmonary fibrosis, Congestive heart failure, chronic 02 dependent, Former smoker Clinical Indicators: Present with complaints of chest pain. Lungs sounds noted rales. He does have chronic shortness of breath secondary to IPF. ED: Clinical impression: NSTEMI, Congestive heart failure VS/Pulse OX: 146/77 131 98. 7 82 % 4/L NC BNP: 1510 EKG: ST segment elevation in lead 3 Echocardiogram Results: EF 40-45 % Chest X Ray: diffuse pulmonary edema, Treatment: Lasix IV Aldactone PO Imdur PO Cozzar PO Lopressor PO In your professional opinion, can you please clarify the acuity and type of CHF if known? Systolic Heart Failure: Acute Chronic Acute on Chronic Diastolic Heart Failure: Acute Chronic Acute on Chronic Systolic & Diastolic Heart Failure: Acute Chronic Acute on Chronic Heart Failure Unable to Determine Other, please specify Please continue to document in your progress notes and discharge summary in order to capture severity of illness and risk of mortality. Include clinical findings that support your diagnosis. MTDD
[2018-05-15 17:30] LABS: Glucose,Whole Blood 241 mg/dL (75-99)
[2018-05-15 21:29] LABS: Glucose,Whole Blood 254 mg/dL (75-99)
[2018-05-15] MEDS: INSULIN DETEMIR 100 UNIT/ML 10 ML VIAL SQ SCH (21:45)
[2018-05-16] MEDS: HEPARIN SODIUM,PORCINE 5,000 UNIT/ML 1 ML VIAL SQ SCH ×3 (00:52→20:59)
[2018-05-16 06:07] LABS: Glucose,Whole Blood 170 mg/dL (75-99)
[2018-05-16 06:19] LABS: Basophils % (A) 1 %; Eosinophils # (A) 0.3 k/uL (0-0.7); Eosinophils % (A) 5 %; HCT 32.9 % (39.0-53.0); Lymphocytes # (A) 1.5 k/uL (1.0-4.8); Lymphocytes % (A) 23 %; MCH 30.4 pg (25.0-35.0); MCHC 33.4 g/dL (31.0-37.0); MCV 91.1 fL (80.0-100.0); Mean Platelet Volume 7.9; Monocytes # (A) 0.6 k/uL (0-1.0); Monocytes % (A) 8 %; Neutrophils # (A) 4.1 k/uL (1.3-7.7); Neutrophils % (A) 62 %; Platelet Count 193 k/uL (150-450); RBC 3.62 m/uL (4.30-5.90); RDW 14.2 % (11.5-15.5); WBC 6.6 k/uL (3.8-10.6)
[2018-05-16 06:37] LABS: Calcium 8.6 mg/dL (8.4-10.2); Potassium 4.5 mmol/L (3.5-5.1)
[2018-05-16] MEDS: glipiZIDE 5 MG TAB PO SCH ×2 (06:55→21:30)
[2018-05-16] MEDS: PANTOPRAZOLE 40 MG TABLET PO SCH (06:55)
[2018-05-16] MEDS: ASPIRIN 81 MG PO SCH (08:20)
[2018-05-16] MEDS: CLOPIDOGREL 75 MG TAB PO SCH (08:21)
[2018-05-16] MEDS: METOPROLOL TARTRATE 25 MG TAB PO SCH ×2 (08:21→20:59)
[2018-05-16] MEDS: LOSARTAN 25 MG TAB PO SCH (08:21)
[2018-05-16] MEDS: ISOSORBIDE MONONITRATE ER 60 MG TAB.ER.24H PO SCH ×2 (08:21→21:00)
[2018-05-16] MEDS: ATORVASTATIN 80 MG TAB PO SCH (08:21)
[2018-05-16] MEDS: RANOLAZINE 500 MG TAB.ER.12H PO SCH ×2 (08:22→21:00)
[2018-05-16] MEDS: SPIRONOLACTONE 25 MG TAB PO SCH (08:22)
[2018-05-16] MEDS: ESBRIET 267 MG PO SCH ×3 (08:27→20:59)
--- NOTE | 2018-05-16 11:32 | P.PN ---
Subjective Progress Note Date: 05/16/18 Principal diagnosis: Acute inferior wall [place] This is a pleasant 73-year-old gentleman who follows with Dr. Barker in the office. He has a known history of diabetes, hypertension, hyperlipidemia , family history of premature coronary artery disease, CAD/PVD, COPD with 24 hour home O2 use, history of coronary artery bypass grafting surgery in 1997, patient also subsequent to that underwent stenting of the proximal circumflex in 2009. He presented to the hospital on Tuesday with an acute inferior wall myocardial infarction. Patient was taken to the cardiac catheterization lab by Dr. Margi Galaviz on Tuesday where patient underwent unsuccessful PTCA of an occlusion in the vein graft to the obtuse marginal. Right coronary artery was totally occluded, saphenous a stump with limited antegrade flow. Patient was seen and examined this morning, denied any chest pain, breathing overall is stable. Blood pressure 120/78 with heart rate in the 60s, afebrile, 95% on 5 L of oxygen. White blood cell count 6.8, hemoglobin 11.4, platelet count 194. Sodium 143, potassium 4.0, BUN 19, creatinine 0.8. The patient is currently on aspirin 81 mg daily, Lipitor 40 mg daily, Plavix 75 mg daily, Imdur 60 mg twice a day, losartan 25 mg daily, metoprolol 25 mg by mouth twice a day. Echocardiogram with Doppler study remains pending. 05/16/2018 Patient seen and examined this morning, up ambulating in the room and [place], denies any chest pain, breathing is overall stable. Echocardiogram with Doppler study was performed which revealed an ejection fraction of 40-45%, basal inferior and basal inferior septal hypokinesia. Blood pressure 120/60 with a heart rate in the 50s, 99% on 6 L of oxygen. White blood cell count 6.6 , hemoglobin 11.0, sodium 141, potassium 4.5, BUN 18, creatinine 1.0. The patient has been encouraged to be up ambulating in the hallway today, plan for possible discharge home in 24 hours if stable. Objective - Vital Signs Vital signs: Vital Signs Temp 96.4 F L 05/16/18 08:05 Pulse 58 L 05/16/18 08:05 Resp 18 05/16/18 08:05 BP 119/58 05/16/18 08:05 Pulse Ox 99 06/26/18 08:05 Intake & Output 05/15/18 05/16/18 05/16/18 18:59 06:59 18:59 Intake Total 750 180 Output Total 590 Balance 160 180 Weight 97.3 kg 98.5 kg Intake: Oral 750 180 Output: Urine 590 Other: Voiding Method Toilet Toilet Urinal # Voids 1 - Exam PHYSICAL EXAMINATION: GENERAL: This is a 73-year-old gentleman in no apparent distress at time of my examination. HEENT: Head is atraumatic, normocephalic. Pupils equal, round. Sclera anicteric. Conjunctiva are clear. Mucous membranes of the mouth are moist. Neck is supple. There is no elevated jugular venous pressure.] bruit is heard. HEART EXAMINATION: Heart S1, S2 normal. No murmur or gallop heard. CHEST EXAMINATION: Lungs are clear to auscultation and precussion. No chest wall tenderness is noted on palpation or with deep breathing. ABDOMEN: Soft, nontender. Bowel sounds are heard. No organomegaly noted. Right groin is soft, no evidence of any hematoma. EXTREMITIES: 1+ peripheral pulses with no evidence of peripheral edema and no calf tenderness noted. NEUROLOGIC patient is awake, alert and oriented -3. . - Labs CBC & Chem 7: 05/16/18 06:01 05/16/18 06:01 Labs: Abnormal Lab Results - Last 24 Hours (Table) 05/15/18 05/15/18 05/15/18 Range/Units 05:57 12:02 13:56 RBC (4.30-5.90) m/uL Hgb (13.0-17.5) gm/dL Hct (39.0-53.0) % Carbon Dioxide (22-30) mmol/L Glucose (74-99) mg/dL POC Glucose (mg/dL) 188 H (75-99) mg/dL Troponin I 5.390 H* 3.950 H* (0.000-0.034) ng/mL 05/15/18 05/15/18 05/15/18 Range/Units 17:08 17:31 21:27 RBC (4.30-5.90) m/uL Hgb (13.0-17.5) gm/dL Hct (39.0-53.0) % Carbon Dioxide (22-30) mmol/L Glucose (74-99) mg/dL POC Glucose (mg/dL) 241 H 254 H (75-99) mg/dL Troponin I 3.690 H* (0.000-0.034) ng/mL 05/16/18 05/16/18 05/16/18 Range/Units 06:01 06:01 06:05 RBC 3.62 L (4.30-5.90) m/uL Hgb 11.0 L (13.0-17.5) gm/dL Hct 32.9 L (39.0-53.0) % Carbon Dioxide 31 H (22-30) mmol/L Glucose 167 H (74-99) mg/dL POC Glucose (mg/dL) 170 H (75-99) mg/dL Troponin I (0.000-0.034) ng/mL Assessment and Plan Plan: Assessment and plan #1 acute inferior wall myocardial infarction status post failed angioplasty of the circumflex artery. #2 known history of coronary artery disease with prior bypass surgery in 1997, prior PCI's. #3 hypertension #4 hyperlipidemia #5 diabetes #6 PAD/PVD #7 COPD with chronic home O2 use #8 systolic congestive heart failure acute on chronic Plan We will continue aspirin 81 mg daily, Lipitor 80 mg daily, continue Plavix 75 mg daily, Imdur 60 twice a day, losartan 25 mg daily, Aldactone 12-1/2 mg daily and metoprolol 25 mg one tablet by mouth twice a day. Plan for possible discharge home in 24 hours if stable. DNP note has been reviewed, I agree with a documented findings and plan of care. Patient was seen and examined.
[2018-05-16 11:40] LABS: Glucose,Whole Blood 180 mg/dL (75-99)
[2018-05-16] MEDS: LINAGLIPTIN 5 MG TABLET PO SCH (12:08)
[2018-05-16] MEDS: PIOGLITAZONE 45 MG TAB PO SCH (12:08)
--- NOTE | 2018-05-16 12:18 | P.PN ---
Subjective Progress Note Date: 05/16/18 Principal diagnosis: Acute inferior wall myocardial infarction status post failed angioplasty of the circumflex artery 73-year-old male patient presented with chest pain. The patient is known to have coronary artery disease, diabetes mellitus hypertension and peripheral vascular disease and has been treated for a DVT of the right lower extremity back in 2008. His echocardiogram from 2016 also showed moderate degree of concentric ventricular hypertrophy and a left ejection fraction 45-50% and moderate degree of aortic stenosis with a peak pressure of 14 and a valve area of 1.3 cm. There is also mild to moderate mitral regurgitation without evidence of any significant pulmonary hypertension. The patient has undergone previous coronary artery bypass surgery and he has also undergone previous coronary intervention and stenting. He has undergone a previous carotid endarterectomy back in 2016 and previous atherectomy and stent insertion of the left femoral artery. The patient ruled in for acute myocardial infarction. The patient was found to have initial troponin of 17.4. His EKG showing a sinus rhythm with a first-degree AV block. Nonspecific intraventricular conduction block and there is a T-wave abnormality in the lateral leads. He was kept on aspirin. He was started on IV heparin. He is also on Plavix. He is on metoprolol 25 mg by mouth twice a day. The cardiology consultation was also requested. Based on all this, the patient was taken to emergent cardiac catheterization the patient on underwent emergent PTCA to saphenous vein graft to obtuse marginal branch of circumflex. He is currently on IV heparin. The patient is also known to have pulmonary fibrosis. The patient has possibly a component of IPF. The patient was placed on Esbriet therapy 3 tablets 3 times a day. His most recent primary function tests from 2018 showed a drop in FVC down to 41% of predicted and the total lung capacity of 47% of predicted and diffusion capacity of 60% of predicted. This is consistent with severe restrictive lung disease secondary to pulmonary fibrosis. He thinks he has chronic exertional dyspnea yet despite his advanced pulmonary fibrosis the patient is unable to perform activities of daily today life without any major difficulties. He is oxygen dependent and uses somewhat between 2-3 L of oxygen nasal cannula and his concentrator. Patient was reevaluated today on 05/15/2018, doing much better, denies any specific complaints, patient had cardiac catheterization and unsuccessful PTCA of a chronic vein graft to the obtuse marginal, hence patient is on medical therapy as recommended by cardiology. No chest pain, no cough, he does have chronic shortness of breath secondary to IPF, he is O2 dependent. The patient is seen again today 05/16/2018 in follow-up on the selective care unit. He is awake and alert in no acute distress. He denies any further chest discomfort. No worsening shortness of breath, cough or congestion. He is currently maintaining good O2 saturations in the 90s on 5 L/m per nasal cannula. He does have idiopathic pulmonary fibrosis maintained on Esbriet and oxygen dependent. He's been afebrile. Hemodynamically stable. White count 6.6. Hemoglobin 11.0. Creatinine 1.05. Objective - Vital Signs Vital signs: Vital Signs Temp 96.4 F L 05/16/18 08:05 Pulse 58 L 05/16/18 08:05 Resp 18 05/16/18 08:05 BP 119/58 05/16/18 08:05 Pulse Ox 99 05/16/18 08:05 Intake & Output 05/15/18 05/16/18 05/16/18 18:59 06:59 18:59 Intake Total 750 180 Output Total 590 Balance 160 180 Weight 97.3 kg 98.5 kg Intake: Oral 750 180 Output: Urine 590 Other: Voiding Method Toilet Toilet Urinal # Voids 1 - Exam Physical Exam: Revealed a 73-year-old white male very pleasant, in no distress. Head: Atraumatic, normocephalic. HEENT:[Neck is supple.] [No neck masses.] [No thyromegaly.] [No JVD.] Chest: [Clear throughout, Velcro rales and crackles heard at the bases bilaterally. Cardiac Exam: [Normal S1 and S2, no S3 gallop, no murmur.] Abdomen: [Soft, nontender, no megaly, no rebound, no guarding, normal bowel sounds.] Extremities: [No clubbing, no edema, no cyanosis.] Neurological Exam: [No focal neurologic deficit.] Lymphatics: No lymphadenopathy. Psychiatric: Normal mood affect and mental status examination. Skin: No rashes. - Labs CBC & Chem 7: 05/16/18 06:01 05/16/18 06:01 Labs: Abnormal Lab Results - Last 24 Hours (Table) 05/15/18 05/15/18 05/15/18 Range/Units 12:02 13:56 17:08 RBC (4.30-5.90) m/uL Hgb (13.0-17.5) gm/dL Hct (39.0-53.0) % Carbon Dioxide (22-30) mmol/L Glucose (74-99) mg/dL POC Glucose (mg/dL) 188 H 241 H (75-99) mg/dL Troponin I 3.950 H* (0.000-0.034) ng/mL 05/15/18 05/15/18 05/16/18 Range/Units 17:31 21:27 06:01 RBC 3.62 L (4.30-5.90) m/uL Hgb 11.0 L (13.0-17.5) gm/dL Hct 32.9 L (39.0-53.0) % Carbon Dioxide (22-30) mmol/L Glucose (74-99) mg/dL POC Glucose (mg/dL) 254 H (75-99) mg/dL Troponin I 3.690 H* (0.000-0.034) ng/mL 05/16/18 05/16/18 05/16/18 Range/Units 06:01 06:05 11:30 RBC (4.30-5.90) m/uL Hgb (13.0-17.5) gm/dL Hct (39.0-53.0) % Carbon Dioxide 31 H (22-30) mmol/L Glucose 167 H (74-99) mg/dL POC Glucose (mg/dL) 170 H 180 H (75-99) mg/dL Troponin I (0.000-0.034) ng/mL Assessment and Plan Assessment: Assessment: 1 Acute non-STEMI. The patient was in for an acute IA with initial troponin of 17. Currently on IV heparin. Also, patient aspirin and Plavix and beta blockers. Patient is post cardiac catheterization and failed PTCA of saphenous vein graft to obtuse marginal branch of circumflex. Patient is post bypass surgery that was done in 1997. He has had also previous PTCA of the [place] circumflex done in 2009 which was subsequently found to be occluded 2016. He has to of his vein grafts to diagonal and RCA are occluded. The [place] to LAD is patent 2 chest pain secondary to above 3 IPF with severe restrictive lung disease and chronic hypoxic respiratory failure maintained on oxygen at 3 L/m nasal cannula 4 chronic hypoxic respiratory failure 5 coronary artery disease bypass surgery 6 aortic stenosis with a valve area of 1.3 cm based on echocardiogram from 2016 7 diabetes mellitus 8 diabetic foot ulcer, history of 9 peripheral vascular disease with previous vascular intervention and stenting of the right lower extremity 10 current artery disease with previous endarterectomy 11 remote history of DVT of lower extremity back in 2008 12 hyperlipidemia 13 hypertension Plan: The patient was seen and evaluated by Dr. Calix. He is currently stable from the pulmonary standpoint. The plan is for probable discharge in the next 24 hours. He will follow up with Dr. Rojo in our office as scheduled. In the interim, we'll continue with his current medications. Increase his activity as tolerated. Titrate down the FiO2 will maintaining O2 saturations in the 90s. He is on oxygen at 3 L in the outpatient setting. We'll continue to follow. I, the cosigning physician, performed a history & physical examination of the patient. Lungs sounds with Velcro crackles in posterior bases. Maintaining good O2 saturations in the 90s on 5 L/m per nasal cannula. I discussed the assessment and plan of care with my nurse practitioner, Sheila James. I attest to the above note as dictated by her.
[2018-05-16 17:14] LABS: Glucose,Whole Blood 254 mg/dL (75-99)
--- NOTE | 2018-05-16 18:28 | P.PN ---
Subjective This is a pleasant 73 years old male with past medical history of heart failure , diabetes mellitus, DVT, GERD, hyperlipidemia, hypertension, vascular disease, idiopathic pulmonary fibrosis, aortic stenosis with valve area 1.3 cm, peripheral vascular disease on the right lower extremity in 2009, diabetic foot ulcer, history of MRSA infection. Echo from 2016 shows concentric LVH [moderate ] and EF 45-50% with moderate degree of aortic stenosis Presents because of chest pain of one-day duration. The chest pain was in the left upper chest radiating to the left shoulders and neck, pressure and quality was severe as per patient, not associated with nausea vomiting or sweating. No dyspnea In the ED on presentation patient was found to have high troponin of 17.4 with EKG shows sinus rhythm at 100 bpm, with QTC 454 and first-degree AV block and T wave abnormality concerning for ischemia. He was treated with IV heparin, metoprolol and aspirin and cardiology consultation for emergent cardiac cath. Ice Skating Teacher evaluated the patient and hand underwent PTCA procedure on 2017. A senior electronics design engineer could not cross the lesions with the guide catheter and whisper wire and this was unsuccessful PTCA as per senior electronics design engineer. Patient currently lying in the chair with no distress. He is chest pain-free. No dyspnea. On 05/15/2018 Patient was lying in bed. No more chest pain or dyspnea. Patient is still on heparin drip and aspirin and Plavix. Patient underwent echocardiogram as per and the result is pending. His WBC from today shows 6.8K. Hemoglobin 11.4 and creatinine 0.89. Sodium 143 potassium 4.0. Patient was restarted on Lipitor 80 mg by mouth daily per Cardiology team. On 05/16/2018 Patient looks his stable and is still improving. He was walking in the hallway today with less difficulty and labs and medication were reviewed Objective - Vital Signs Vital signs: Vital Signs Temp 96.9 F L 05/16/18 15:25 Pulse 50 L 05/16/18 15:25 Resp 16 05/16/18 15:25 BP 121/57 05/16/18 15:25 Pulse Ox 99 05/16/18 15:25 Intake & Output 05/15/18 05/16/18 05/16/18 18:59 06:59 18:59 Intake Total 750 480 Output Total 590 Balance 160 480 Weight 97.3 kg 98.5 kg Intake: Oral 750 480 Output: Urine 590 Other: Voiding Method Toilet Toilet Urinal # Voids 1 2 - Exam GENERAL: The patient is alert and oriented x3, not in any acute distress. Well developed, well nourished. HEENT: Pupils are round and equally reacting to light. EOMI. No scleral icterus. No conjunctival pallor. Normocephalic, atraumatic. No pharyngeal erythema. No thyromegaly. CARDIOVASCULAR: S1 and S2 present. No murmurs, rubs, or gallops. PULMONARY: Chest is clear to auscultation, no wheezing or crackles. ABDOMEN: Soft, nontender, nondistended, normoactive bowel sounds. No palpable organomegaly. MUSCULOSKELETAL: No joint swelling or deformity. EXTREMITIES: No cyanosis, clubbing, or pedal edema. NEUROLOGICAL: Gross neurological examination did not reveal any focal deficits. SKIN: No rashes. - Labs CBC & Chem 7: 05/16/18 06:01 05/16/18 06:01 Labs: Abnormal Lab Results - Last 24 Hours (Table) 05/15/18 05/16/18 05/16/18 Range/Units 21:27 06:01 06:01 RBC 3.62 L (4.30-5.90) m/uL Hgb 11.0 L (13.0-17.5) gm/dL Hct 32.9 L (39.0-53.0) % Carbon Dioxide 31 H (22-30) mmol/L Glucose 167 H (74-99) mg/dL POC Glucose (mg/dL) 254 H (75-99) mg/dL 05/16/18 05/16/18 05/16/18 Range/Units 06:05 11:30 16:36 RBC (4.30-5.90) m/uL Hgb (13.0-17.5) gm/dL Hct (39.0-53.0) % Carbon Dioxide (22-30) mmol/L Glucose (74-99) mg/dL POC Glucose (mg/dL) 170 H 180 H 254 H (75-99) mg/dL Assessment and Plan Plan: -Acute non-STEMI patient has been evaluated by senior electronics design engineer and underwent an successful PTCA of the obtuse marginal branch of circumflex artery. Patient continue with aspirin, Plavix and beta blockers and IV heparin. Echo: pending -Chest pain syndrome, secondary to above -Pulmonary fibrosis, pulmonary evaluation is appreciated his IPF looks his stable and patient can't oxygen 3 L via nasal cannula. Continue with Esbriet later on -Aortic stenosis with surface area of 1.3 cm on echo of 2016 -Diabetes mellitus on the glipizide , Lingagliptin and Actos. And Levemir 24 units -Hyperlipidemia continue with statin -Hypertension continue with losartan, metoprolol, Gautam tone, Lasix -Diabetic foot ulcers, continue same treatment -PVD, continue with same treatment DVT prophylaxis, is already on aspirin GI prophylaxis continue with Protonix CODE STATUS discussed with the patient and at bedside both inform me he wanted chest compression but he doesn't want intubation discussed with the staff and placed patients with code with instructions as DO NOT INTUBATE or DO NOT INTUBATE Prognosis is guarded and very poor given the severity and complexity of his disease
[2018-05-16 21:09] LABS: Glucose,Whole Blood 273 mg/dL (75-99)
[2018-05-16] MEDS: INSULIN DETEMIR 100 UNIT/ML 10 ML VIAL SQ SCH (21:31)
[2018-05-17 00:03] VITALS: RESP 16
[2018-05-17 06:00] LABS: Glucose,Whole Blood 148 mg/dL (75-99)
[2018-05-17 08:21] LABS: Calcium 8.7 mg/dL (8.4-10.2); Potassium 4.6 mmol/L (3.5-5.1)
[2018-05-17 08:23] LABS: Basophils % (A) 0 %; Eosinophils # (A) 0.3 k/uL (0-0.7); Eosinophils % (A) 5 %; HCT 31.8 % (39.0-53.0); HGB 10.6 gm/dL (13.0-17.5); Lymphocytes # (A) 1.5 k/uL (1.0-4.8); Lymphocytes % (A) 24 %; MCHC 33.4 g/dL (31.0-37.0); MCV 89.9 fL (80.0-100.0); Mean Platelet Volume 7.4; Monocytes # (A) 0.6 k/uL (0-1.0); Monocytes % (A) 9 %; Neutrophils # (A) 3.7 k/uL (1.3-7.7); Neutrophils % (A) 59 %; Platelet Count 181 k/uL (150-450); RBC 3.54 m/uL (4.30-5.90); RDW 14.1 % (11.5-15.5); WBC 6.2 k/uL (3.8-10.6)
--- NOTE | 2018-05-17 11:10 | P.PN ---
Subjective Progress Note Date: 05/17/18 Principal diagnosis: Acute inferior wall myocardial infarction status post failed angioplasty of the circumflex artery 73-year-old male patient presented with chest pain. The patient is known to have coronary artery disease, diabetes mellitus hypertension and peripheral vascular disease and has been treated for a DVT of the right lower extremity back in 2008. His echocardiogram from 2016 also showed moderate degree of concentric ventricular hypertrophy and a left ejection fraction 45-50% and moderate degree of aortic stenosis with a peak pressure of 14 and a valve area of 1.3 cm. There is also mild to moderate mitral regurgitation without evidence of any significant pulmonary hypertension. The patient has undergone previous coronary artery bypass surgery and he has also undergone previous coronary intervention and stenting. He has undergone a previous carotid endarterectomy back in 2016 and previous atherectomy and stent insertion of the left femoral artery. The patient ruled in for acute myocardial infarction. The patient was found to have initial troponin of 17.4. His EKG showing a sinus rhythm with a first-degree AV block. Nonspecific intraventricular conduction block and there is a T-wave abnormality in the lateral leads. He was kept on aspirin. He was started on IV heparin. He is also on Plavix. He is on metoprolol 25 mg by mouth twice a day. The cardiology consultation was also requested. Based on all this, the patient was taken to emergent cardiac catheterization the patient on underwent emergent PTCA to saphenous vein graft to obtuse marginal branch of circumflex. He is currently on IV heparin. The patient is also known to have pulmonary fibrosis. The patient has possibly a component of IPF. The patient was placed on Esbriet therapy 3 tablets 3 times a day. His most recent primary function tests from 2018 showed a drop in FVC down to 41% of predicted and the total lung capacity of 47% of predicted and diffusion capacity of 60% of predicted. This is consistent with severe restrictive lung disease secondary to pulmonary fibrosis. He thinks he has chronic exertional dyspnea yet despite his advanced pulmonary fibrosis the patient is unable to perform activities of daily today life without any major difficulties. He is oxygen dependent and uses somewhat between 2-3 L of oxygen nasal cannula and his concentrator. Patient was reevaluated today on 05/15/2018, doing much better, denies any specific complaints, patient had cardiac catheterization and unsuccessful PTCA of a chronic vein graft to the obtuse marginal, hence patient is on medical therapy as recommended by cardiology. No chest pain, no cough, he does have chronic shortness of breath secondary to IPF, he is O2 dependent. The patient is seen again today 05/16/2018 in follow-up on the selective care unit. He is awake and alert in no acute distress. He denies any further chest discomfort. No worsening shortness of breath, cough or congestion. He is currently maintaining good O2 saturations in the 90s on 5 L/m per nasal cannula. He does have idiopathic pulmonary fibrosis maintained on Esbriet and oxygen dependent. He's been afebrile. Hemodynamically stable. White count 6.6. Hemoglobin 11.0. Creatinine 1.05. The patient is seen again today 05/17/2018 in follow-up on the selective care unit. He is currently resting quite comfortably in bed. He is awake and alert in no acute distress. He denies any worsening shortness of breath, cough or congestion. Currently maintaining O2 saturations in the high 90s on 5 L/m per nasal cannula. She's been afebrile. Hemodynamically stable. White count 6.2. Hemoglobin 10.6. He is anxious to go home. Objective - Vital Signs Vital signs: Vital Signs Temp 97 F L 05/17/18 00:00 Pulse 58 L 05/17/18 00:00 Resp 16 05/17/18 00:00 BP 91/53 05/17/18 00:00 Pulse Ox 98 05/17/18 00:00 Intake & Output 05/16/18 05/17/18 05/17/18 18:59 06:59 18:59 Intake Total 800 Balance 800 Intake: Oral 800 Other: Voiding Method Toilet # Voids 2 1 - Exam Physical Exam: Revealed a 73-year-old white male very pleasant, in no distress. Head: Atraumatic, normocephalic. HEENT:[Neck is supple.] [No neck masses.] [No thyromegaly.] [No JVD.] Chest: [Clear throughout, Velcro rales and crackles heard at the bases bilaterally. Cardiac Exam: [Normal S1 and S2, no S3 gallop, no murmur.] Abdomen: [Soft, nontender, no megaly, no rebound, no guarding, normal bowel sounds.] Extremities: [No clubbing, no edema, no cyanosis.] Neurological Exam: [No focal neurologic deficit.] Lymphatics: No lymphadenopathy. Psychiatric: Normal mood affect and mental status examination. Skin: No rashes. - Labs CBC & Chem 7: 05/17/18 06:10 05/16/18 06:01 Labs: Abnormal Lab Results - Last 24 Hours (Table) 05/16/18 05/16/18 05/16/18 Range/Units 11:30 16:36 21:07 RBC (4.30-5.90) m/uL Hgb (13.0-17.5) gm/dL Hct (39.0-53.0) % POC Glucose (mg/dL) 180 H 254 H 273 H (75-99) mg/dL 05/17/18 05/17/18 Range/Units 05:58 06:10 RBC 3.54 L (4.30-5.90) m/uL Hgb 10.6 L (13.0-17.5) gm/dL Hct 31.8 L (39.0-53.0) % POC Glucose (mg/dL) 148 H (75-99) mg/dL Assessment and Plan Assessment: Assessment: 1 Acute non-STEMI. The patient was in for an acute AL with initial troponin of 17. Currently on IV heparin. Also, patient aspirin and Plavix and beta blockers. Patient is post cardiac catheterization and failed PTCA of saphenous vein graft to obtuse marginal branch of circumflex. Patient is post bypass surgery that was done in 1997. He has had also previous PTCA of the [place] circumflex done in 2009 which was subsequently found to be occluded 2016. He has to of his vein grafts to diagonal and RCA are occluded. The [place] to LAD is patent 2 chest pain secondary to above 3 IPF with severe restrictive lung disease and chronic hypoxic respiratory failure maintained on oxygen at 3 L/m nasal cannula 4 chronic hypoxic respiratory failure 5 coronary artery disease bypass surgery 6 aortic stenosis with a valve area of 1.3 cm based on echocardiogram from 2016 7 diabetes mellitus 8 diabetic foot ulcer, history of 9 peripheral vascular disease with previous vascular intervention and stenting of the right lower extremity 10 current artery disease with previous endarterectomy 11 remote history of DVT of lower extremity back in 2008 12 hyperlipidemia 13 hypertension Plan: The patient was seen and evaluated by Dr. Calix. He is currently stable from the pulmonary standpoint. Probable home today on his home pulmonary medications. He will follow up with Dr. Rojo in our office as scheduled. I, the cosigning physician, performed a history & physical examination of the patient. Lungs sounds with Velcro crackles in posterior bases. Maintaining good O2 saturations in the 90s on 5 L/m per nasal cannula. I discussed the assessment and plan of care with my nurse practitioner, Sheila James. I attest to the above note as dictated by her.
[2018-05-17] MEDS: PANTOPRAZOLE 40 MG TABLET PO SCH (11:39)
[2018-05-17] MEDS: CLOPIDOGREL 75 MG TAB PO SCH (11:39)
[2018-05-17] MEDS: ASPIRIN 81 MG PO SCH (11:39)
[2018-05-17] MEDS: glipiZIDE 5 MG TAB PO SCH (11:39)
[2018-05-17] MEDS: ATORVASTATIN 80 MG TAB PO SCH (11:39)
[2018-05-17 11:40] LABS: Glucose,Whole Blood 259 mg/dL (75-99)
[2018-05-17] MEDS: HEPARIN SODIUM,PORCINE 5,000 UNIT/ML 1 ML VIAL SQ SCH (11:40)
[2018-05-17] MEDS: SPIRONOLACTONE 25 MG TAB PO SCH (11:40)
[2018-05-17] MEDS: LOSARTAN 25 MG TAB PO SCH (11:40)
[2018-05-17] MEDS: METOPROLOL TARTRATE 25 MG TAB PO SCH (11:40)
[2018-05-17] MEDS: ESBRIET 267 MG PO SCH ×2 (11:40→15:53)
[2018-05-17] MEDS: RANOLAZINE 500 MG TAB.ER.12H PO SCH (11:40)
[2018-05-17] MEDS: ISOSORBIDE MONONITRATE ER 60 MG TAB.ER.24H PO SCH (11:40)
[2018-05-17] MEDS: LINAGLIPTIN 5 MG TABLET PO SCH (11:56)
[2018-05-17] MEDS: PIOGLITAZONE 45 MG TAB PO SCH (11:56)
--- NOTE | 2018-05-17 12:10 | P.PN ---
Subjective Progress Note Date: 05/17/18 Principal diagnosis: Acute inferior wall [place] This is a pleasant 73-year-old gentleman who follows with Dr. Barker in the office. He has a known history of diabetes, hypertension, hyperlipidemia , family history of premature coronary artery disease, CAD/PVD, COPD with 24 hour home O2 use, history of coronary artery bypass grafting surgery in 1997, patient also subsequent to that underwent stenting of the proximal circumflex in 2009. He presented to the hospital on Tuesday with an acute inferior wall myocardial infarction. Patient was taken to the cardiac catheterization lab by Dr. Margi Galaviz on Tuesday where patient underwent unsuccessful PTCA of an occlusion in the vein graft to the obtuse marginal. Right coronary artery was totally occluded, saphenous a stump with limited antegrade flow. Patient was seen and examined this morning, denied any chest pain, breathing overall is stable. Blood pressure 120/78 with heart rate in the 60s, afebrile, 95% on 5 L of oxygen. White blood cell count 6.8, hemoglobin 11.4, platelet count 194. Sodium 143, potassium 4.0, BUN 19, creatinine 0.8. The patient is currently on aspirin 81 mg daily, Lipitor 40 mg daily, Plavix 75 mg daily, Imdur 60 mg twice a day, losartan 25 mg daily, metoprolol 25 mg by mouth twice a day. Echocardiogram with Doppler study remains pending. 05/16/2018 Patient seen and examined this morning, up ambulating in the room and [place], denies any chest pain, breathing is overall stable. Echocardiogram with Doppler study was performed which revealed an ejection fraction of 40-45%, basal inferior and basal inferior septal hypokinesia. Blood pressure 120/60 with a heart rate in the 50s, 99% on 6 L of oxygen. White blood cell count 6.6 , hemoglobin 11.0, sodium 141, potassium 4.5, BUN 18, creatinine 1.0. The patient has been encouraged to be up ambulating in the hallway today, plan for possible discharge home in 24 hours if stable. 05/17/2018 Patient seen and examined this morning, he's been up ambulating in the hallway without difficulty. Denies any chest pain or difficulty in breathing. From cardiology's perspective he should be able to be discharged home today, we'll make him a follow-up appointment to see Dr. Barker in the office post discharge. Objective - Vital Signs Vital signs: Vital Signs Temp 97 F L 05/17/18 00:00 Pulse 58 L 05/17/18 00:00 Resp 16 05/17/18 00:00 BP 91/53 05/17/18 00:00 Pulse Ox 98 05/17/18 00:00 Intake & Output 05/16/18 05/17/18 05/17/18 18:59 06:59 18:59 Intake Total 800 Balance 800 Intake: Oral 800 Other: Voiding Method Toilet # Voids 2 1 - Exam PHYSICAL EXAMINATION: GENERAL: This is a 73-year-old gentleman in no apparent distress at time of my examination. HEENT: Head is atraumatic, normocephalic. Pupils equal, round. Sclera anicteric. Conjunctiva are clear. Mucous membranes of the mouth are moist. Neck is supple. There is no elevated jugular venous pressure.] bruit is heard. HEART EXAMINATION: Heart S1, S2 normal. No murmur or gallop heard. CHEST EXAMINATION: Lungs are clear to auscultation and precussion. No chest wall tenderness is noted on palpation or with deep breathing. ABDOMEN: Soft, nontender. Bowel sounds are heard. No organomegaly noted. Right groin is soft, no evidence of any hematoma. EXTREMITIES: 1+ peripheral pulses with no evidence of peripheral edema and no calf tenderness noted. NEUROLOGIC patient is awake, alert and oriented -3. . - Labs CBC & Chem 7: 05/17/18 06:10 05/16/18 06:01 Labs: Abnormal Lab Results - Last 24 Hours (Table) 05/16/18 05/16/18 05/17/18 Range/Units 16:36 21:07 05:58 RBC (4.30-5.90) m/uL Hgb (13.0-17.5) gm/dL Hct (39.0-53.0) % POC Glucose (mg/dL) 254 H 273 H 148 H (75-99) mg/dL 05/17/18 05/17/18 Range/Units 06:10 11:38 RBC 3.54 L (4.30-5.90) m/uL Hgb 10.6 L (13.0-17.5) gm/dL Hct 31.8 L (39.0-53.0) % POC Glucose (mg/dL) 259 H (75-99) mg/dL Assessment and Plan Plan: Assessment and plan #1 acute inferior wall myocardial infarction status post failed angioplasty of the circumflex artery. #2 known history of coronary artery disease with prior bypass surgery in 1997, prior PCI's. #3 hypertension #4 hyperlipidemia #5 diabetes #6 PAD/PVD #7 COPD with chronic home O2 use #8 systolic congestive heart failure acute on chronic Plan We will continue aspirin 81 mg daily, Lipitor 80 mg daily, continue Plavix 75 mg daily, Imdur 60 twice a day, losartan 25 mg daily, Aldactone 12-1/2 mg daily ,metoprolol 25 mg one tablet by mouth twice a dayand sublingual nitroglycerin as needed for chest pain. May be able to be discharged home, follow-up appointment will be made with Dr. Barker in the office post discharge. DNP note has been reviewed, I agree with a documented findings and plan of care. Patient was seen and examined.
[2018-05-17 15:01] VITALS: TEMP 97.5
[2018-05-17 15:59] VITALS: BP 115/54; PULSE 54
[2018-05-17 17:57] LABS: Hemoglobin A1C 7.7 % (4.0-6.0)
--- NOTE | 2018-05-17 23:36 | P.DS ---
Providers Date of admission: 05/13/18 21:17 Attending physician: Polly Fernandez Consults: 05/13/18 21:02 Consult Physician Stat Consulting Provider: Essence Galaviz Consult Reason/Comments: NSTEMI Do you want consulting provider notified?: Already Contacted 05/14/18 10:15 Consult Physician Routine Consulting Provider: Cardiology Libia Consult Reason/Comments: Post Interventional patient Do you want consulting provider notified?: Already Contacted 05/14/18 10:38 Consult Physician Routine Consulting Provider: Braxton Cortez Consult Reason/Comments: pulmonary fibrosis Do you want consulting provider notified?: Yes Primary care physician: [facility] Course: This is a pleasant 73 years old male with past medical history of heart failure , diabetes mellitus, DVT, GERD, hyperlipidemia, hypertension, vascular disease, idiopathic pulmonary fibrosis, aortic stenosis with valve area 1.3 cm, peripheral vascular disease on the right lower extremity in 2008, diabetic foot ulcer, history of MRSA infection. Echo from 2016 shows concentric LVH [moderate ] and EF 45-50% with moderate degree of aortic stenosis Presents because of chest pain of one-day duration. The chest pain was in the left upper chest radiating to the left shoulders and neck, pressure and quality was severe as per patient, not associated with nausea vomiting or sweating. No dyspnea In the ED on presentation patient was found to have high troponin of 17.4 with EKG shows sinus rhythm at 100 bpm, with QTC 454 and first-degree AV block and T wave abnormality concerning for ischemia. He was treated with IV heparin, metoprolol and aspirin and cardiology consultation for emergent cardiac cath. Rotoformer Backtender evaluated the patient and hand underwent PTCA procedure on 2017. A valve tester could not cross the lesions with the guide catheter and whisper wire and this was unsuccessful PTCA as per valve tester. Patient currently lying in the chair with no distress. He is chest pain-free. No dyspnea. Echo shows EF 40-45%, basal inferior and septal hypokinesia. She was evaluated by the cardiology team today and they cleared him for discharge. Pulmonary team also cleared the patient for discharge. Patient on home oxygen. Patient has history of IPF with severe restrictive lung disease and chronic hypoxic respiratory failure on home oxygen. Patient was evaluated by pulmonary team pt was evaluated by PT/OT and recommended home Problem list and management plan were discussed with the patient and at bedside. Patient was found stable and can be discharged home. But he needs follow-up as an outpatient. Appointments and their timing were discussed with the patient and at bedside and they agree with them discharge exam Gen: patient is a AAOx3, no distress CVS: S1-S2, RRR, no murmur Lungs: B/L CTA, no wheezing Abdomen: soft, no distention, no tenderness, positive bowel sounds Extremity: no leg edema or induration Time spent more than 35 minutes Patient Condition at Discharge: Stable Plan - Discharge Summary Discharge Rx Participant: No New Discharge Prescriptions: New Atorvastatin [Lipitor] 80 mg PO DAILY #30 tab Isosorbide Mononitrate ER [Imdur] 60 mg PO BID #60 tab.er.24h Metoprolol Tartrate [Lopressor] 25 mg PO BID #60 tab Nitroglycerin Sl Tabs [Nitrostat] 0.4 mg SUBLINGUAL Q5M PRN #25 tab PRN Reason: Chest Pain Ranolazine [Ranexa] 500 mg PO Q12HR #60 tab.er.12h Continue Pioglitazone HCl [Actos] 45 mg PO DAILY Insulin Glargine [Lantus] 22 units SQ HS Aspirin EC [Ecotrin Low Dose] 81 mg PO DAILY Losartan [Cozaar] 25 mg PO QAM Furosemide [Lasix] 40 mg PO BID metFORMIN HCL [Glucophage] 1,000 mg PO QAM metFORMIN HCL 500 mg PO HS Spironolactone [Aldactone] 25 mg PO DAILY sitaGLIPtin [Januvia] 100 mg PO DAILY glyBURIDE [Diabeta] 10 mg PO AC-BRKFST Clopidogrel [Plavix] 75 mg PO DAILY Pirfenidone [Esbriet] 801 mg PO TID-W/MEALS Pantoprazole Sodium 40 mg PO DAILY glyBURIDE [Diabeta] 5 mg PO HS Discontinued Atorvastatin [Lipitor] 40 mg PO HS Metoprolol Succinate (ER) [Toprol Xl] 25 mg PO DAILY Discharge Medication List Insulin Glargine [Lantus] 22 units SQ HS 03/16/14 [History] Pioglitazone HCl [Actos] 45 mg PO DAILY 03/16/14 [History] Aspirin EC [Ecotrin Low Dose] 81 mg PO DAILY 03/22/16 [History] Losartan [Cozaar] 25 mg PO QAM 05/05/16 [History] Furosemide [Lasix] 40 mg PO BID 05/27/16 [History] metFORMIN HCL 500 mg PO HS 08/26/16 [History] metFORMIN HCL [Glucophage] 1,000 mg PO QAM 08/26/16 [History] Clopidogrel [Plavix] 75 mg PO DAILY 05/13/18 [History] Pantoprazole Sodium 40 mg PO DAILY 05/13/18 [History] Pirfenidone [Esbriet] 801 mg PO TID-W/MEALS 05/13/18 [History] Spironolactone [Aldactone] 25 mg PO DAILY 05/13/18 [History] glyBURIDE [Diabeta] 5 mg PO HS 05/13/18 [History] glyBURIDE [Diabeta] 10 mg PO AC-BRKFST 05/13/18 [History] sitaGLIPtin [Januvia] 100 mg PO DAILY 05/13/18 [History] Atorvastatin [Lipitor] 80 mg PO DAILY #30 tab 05/17/18 [Rx] Isosorbide Mononitrate ER [Imdur] 60 mg PO BID #60 tab.er.24h 05/17/18 [Rx] Metoprolol Tartrate [Lopressor] 25 mg PO BID #60 tab 05/17/18 [Rx] Nitroglycerin Sl Tabs [Nitrostat] 0.4 mg SUBLINGUAL Q5M PRN #25 tab 05/17/18 [Rx ] Ranolazine [Ranexa] 500 mg PO Q12HR #60 tab.er.12h 05/17/18 [Rx] Follow up Appointment(s)/Referral(s): Stephen Aguilar MD [STAFF PHYSICIAN] - 05/29/18 3:00 pm (Tuesday) Roque Underwood DO [Primary Care Provider] - 05/26/18 10:20 am Ta Rojo MD [STAFF PHYSICIAN] - 06/27/18 8:45 am (Tuesday) Patient Instructions/Handouts: *Surgery [facility] - After Heart Catheterization - Cigarette Machines Mechanic Instructions, Heart Healthy Diet (DC) Activity/Diet/Wound Care/Special Instructions: Cardiac diet Activity is limited to at least see your doctor Discharge Disposition: HOME SELF-CARE
== END 2018-05-17 16:32 | disposition home or self-care (01) | DRG 250 ==
LOC: EC 18:53 → 6SEL 21:17 → UNDODISIN 05-14 18:07 → 6SEL 05-14 18:14
PROVIDERS: ADMIT Hospitalist; ATTEND Hospitalist
PROC: B2121ZZ Fluoroscopy of Single Coronary Artery Bypass Graft using Low Osmolar Contrast (ICD-10-PCS; principal; 2018-05-14 08:34)
PROC: B2181ZZ Fluoroscopy of Left Internal Mammary Bypass Graft using Low Osmolar Contrast (ICD-10-PCS; principal; 2018-05-14 08:34)
PROC: 02703ZZ Dilation of Coronary Artery, One Artery, Percutaneous Approach (ICD-10-PCS; principal; 2018-05-14 08:34)
PROC: B2111ZZ Fluoroscopy of Multiple Coronary Arteries using Low Osmolar Contrast (ICD-10-PCS; principal; 2018-05-14 08:34)
PROC: 4A023N7 Measurement of Cardiac Sampling and Pressure, Left Heart, Percutaneous Approach (ICD-10-PCS; principal; 2018-05-14 08:34)
DX: I21.4 Non-ST elevation (NSTEMI) myocardial infarction (principal); I50.23 Acute on chronic systolic (congestive) heart failure; I25.810 Atherosclerosis of coronary artery bypass graft(s) without angina pectoris; J44.1 Chronic obstructive pulmonary disease with (acute) exacerbation; J96.11 Chronic respiratory failure with hypoxia; E11.51 Type 2 diabetes mellitus with diabetic peripheral angiopathy without gangrene; E11.621 Type 2 diabetes mellitus with foot ulcer; E78.00 Pure hypercholesterolemia, unspecified; E78.5 Hyperlipidemia, unspecified; I11.0 Hypertensive heart disease with heart failure; I25.10 Atherosclerotic heart disease of native coronary artery without angina pectoris; I25.2 Old myocardial infarction; I08.0 Rheumatic disorders of both mitral and aortic valves; I44.0 Atrioventricular block, first degree; I45.4 Nonspecific intraventricular block; J84.112 Idiopathic pulmonary fibrosis; K21.9 Gastro-esophageal reflux disease without esophagitis; Z79.02 Long term (current) use of antithrombotics/antiplatelets; Z79.4 Long term (current) use of insulin; Z79.82 Long term (current) use of aspirin; Z79.899 Other long term (current) drug therapy; Z82.49 Family history of ischemic heart disease and other diseases of the circulatory system; Z82.5 Family history of asthma and other chronic lower respiratory diseases; Z83.3 Family history of diabetes mellitus; Z86.14 Personal history of Methicillin resistant Staphylococcus aureus infection; Z86.718 Personal history of other venous thrombosis and embolism; Z87.891 Personal history of nicotine dependence; Z98.61 Coronary angioplasty status; Z99.81 Dependence on supplemental oxygen; L97.529 Non-pressure chronic ulcer of other part of left foot with unspecified severity; Z98.42 Cataract extraction status, left eye; Z98.41 Cataract extraction status, right eye; Z53.09 Procedure and treatment not carried out because of other contraindication
CPT/HCPCS: 36415; 71045; 71046; 80048; 80053; 82550; 82553; 83036; 83735; 83880; 84484; 85025; 85610; 85730; 93005; 93306; 93459; 96361; 96365; 96366; 96374; 96375; 96376; 99291

== ENCOUNTER → 2018-09-04 | Outpatient (CLI) | payer MEDICARE, OTHER ==
[2018-09-04 07:39] LABS: Blood Urea Nitrogen 17 mg/dL (9-20)
--- NOTE | 2018-09-04 10:00 | CT ---
EXAMINATION TYPE: CT chest w con DATE OF EXAM: 09/04/2018 COMPARISON: Prior chest CT 09/01/2017 HISTORY: Difficulty breathing. Pulmonary fibrosis CT DLP: 377 mGycm Automated exposure control for dose reduction was used. CONTRAST: CT scan of the chest is performed with IV Contrast, patient injected with 100 mL of Isovue 300. FINDINGS: LUNGS: The lungs are remarkable for increased interstitial similar to prior exam, some honeycombing i s noted as on prior CT. There is pleural thickening with bronchiectasis as noted on prior. No evident lung mass. There is no pleural effusion or pneumothorax seen. The tracheobronchial tree is patent. MEDIASTINUM: There are no greater than 1 cm hilar or mediastinal lymph nodes, shotty nodes are again seen. Patient is post median sternotomy. The heart is enlarged. There are coronary artery calcificat ions present. No pericardial effusion is seen. For super aortic branch vessels are present. Small hi atal hernia suspected. AORTA: No additional significant abnormality is seen. OTHER: Gynecomastia is stable. Suspect gallstones again noted. Splenic granuloma are seen as on prio r. IMPRESSION: Pulmonary fibrosis shows a similar appearance to prior exam.
== END ==
LOC: RADCTMAIN 07:08
PROVIDERS: ATTEND Internal Medicine Critical Care Medicine
DX: J84.112 Idiopathic pulmonary fibrosis (principal)
CPT/HCPCS: 82565; 84520; 71260; 36415; Q9967

== ENCOUNTER → 2018-10-20 | Outpatient (CLI) | payer MEDICARE, OTHER ==
--- NOTE | 2018-10-20 10:08 | CT ---
EXAMINATION TYPE: CT brain wo con DATE OF EXAM: 10/20/2018 HISTORY: Heart disease, HTN and visual disturbance CT DLP: 961.00 mGycm. Automated Exposure Control for Dose Reduction was Utilized. TECHNIQUE: CT scan of the head is performed without contrast. COMPARISON: None. FINDINGS: There is no acute intracranial hemorrhage or midline shift identified. There is diffuse v entricular and sulcal prominence consistent with diffuse age-related cerebral atrophy. There is low- attenuation in the periventricular white matter consistent with chronic small vessel ischemic change. The globes are intact and the visualized sinuses are clear. Vascular calcification distal interna l carotid arteries bilaterally is present. IMPRESSION: No acute intracranial hemorrhage or midline shift. There is mild to minimal diffuse age -related cerebral atrophy and mild to moderate chronic small vessel ischemic change noted.
== END | disposition home or self-care (01) ==
LOC: RADCTMAIN 09:08
PROVIDERS: ATTEND Physician Assistant Medical
DX: G31.1 Senile degeneration of brain, not elsewhere classified (principal); I67.82 Cerebral ischemia; I10 Essential (primary) hypertension; E78.2 Mixed hyperlipidemia; I25.10 Atherosclerotic heart disease of native coronary artery without angina pectoris; E11.3413 Type 2 diabetes mellitus with severe nonproliferative diabetic retinopathy with macular edema, bilateral; Z86.718 Personal history of other venous thrombosis and embolism
CPT/HCPCS: 70450

== ENCOUNTER 2018-12-14 12:19 | Inpatient (IN) | payer MEDICARE, OTHER ==
[2018-12-14] MEDS ORDERED: SILVER NITRATE APPLICATOR 1 EACH STICK..EA. TOPICAL STA (12:55)
[2018-12-14] MEDS ORDERED: LIDOCAINE/EPINEPHR/TETRACAINE 5 ML BOTTLE TOPICAL ONE (12:55)
[2018-12-14] MEDS ORDERED: OXYMETAZOLINE 0.05% NASL SPRAY 1 SPRAY BOTTLE NASAL STA (12:55)
[2018-12-14] MEDS ORDERED: SODIUM CHLORIDE 0.9% 1,000 ML IV STA (13:06)
--- NOTE | 2018-12-14 13:38 | ED ---
ENT HPI <Braxton Lim - Last Filed: 12/14/18 15:36> - General Source: patient, RN notes reviewed, old records reviewed Mode of arrival: EMS Limitations: no limitations <LocAngie - Last Filed: 12/14/18 16:00> - General Chief complaint: ENT Stated complaint: Nose bleed Time Seen by Provider: 12/14/18 12:40 - History of Present Illness Initial comments: Patient is 73-year-old male presents emergency room today with complaints of left nosebleed. He's been having intermittent nosebleeds for the past 4 days. Patient reports that he is on Plavix. He states he has agreed have an episode of chest pain. Patient states that the bleeding nosebleed started this be heavy at 4 AM. Family also reports he had a syncopal episode while sitting in a chair today before getting here. Patient has had had no chest pain at this time. He denies associated shortness of breath. Denies headache. (Angie Monterroso) - Related Data Home Medications Medication Instructions Recorded Confirmed Insulin Glargine [Lantus] 20 units SQ HS 03/16/14 12/14/18 Pioglitazone HCl [Actos] 45 mg PO DAILY 03/16/14 12/14/18 Aspirin EC [Ecotrin Low Dose] 81 mg PO DAILY 03/22/16 12/14/18 Losartan [Cozaar] 25 mg PO QAM 05/05/16 12/14/18 Furosemide [Lasix] 40 mg PO BID 05/27/16 12/14/18 metFORMIN HCL 1,000 mg PO QAM 08/26/16 12/14/18 metFORMIN HCL [Glucophage] 500 mg PO HS 08/26/16 12/14/18 Clopidogrel [Plavix] 75 mg PO DAILY 05/13/18 12/14/18 Pirfenidone [Esbriet] 801 mg PO TID-W/MEALS 05/13/18 12/14/18 Spironolactone [Aldactone] 25 mg PO DAILY 05/13/18 12/14/18 glyBURIDE [Diabeta] 5 mg PO HS 05/13/18 12/14/18 glyBURIDE [Diabeta] 10 mg PO AC-BRKFST 05/13/18 12/14/18 sitaGLIPtin [Januvia] 100 mg PO DAILY 05/13/18 12/14/18 Ranitidine HCl [Zantac] 150 mg PO DAILY PRN 12/14/18 12/14/18 Previous Rx's Medication Instructions Recorded Atorvastatin [Lipitor] 80 mg PO DAILY #30 tab 05/17/18 Isosorbide Mononitrate ER [Imdur] 60 mg PO BID #60 tab.er.24h 05/17/18 Metoprolol Tartrate [Lopressor] 25 mg PO BID #60 tab 05/17/18 Nitroglycerin Sl Tabs [Nitrostat] 0.4 mg SUBLINGUAL Q5M PRN #25 tab 05/17/18 Ranolazine [Ranexa] 500 mg PO Q12HR #60 tab.er.12h 05/17/18 Allergies Allergy/AdvReac Type Severity Reaction Status Date / Time No Known Allergies Allergy Verified 12/14/18 12:59 Review of Systems ROS Other: All systems not noted in ROS Statement are negative. <Braxton Lim - Last Filed: 12/14/18 15:36> ROS Other: All systems not noted in ROS Statement are negative. <Angie Monterroso - Last Filed: 12/14/18 16:00> ROS Statement: Those systems with pertinent positive or pertinent negative responses have been documented in the HPI. Past Medical History Past Medical History: Heart Failure, Diabetes Mellitus, Deep Vein Thrombosis ( DVT), GERD/Reflux, Hyperlipidemia, Hypertension, Myocardial Infarction ([place]), Vascular Disorder Additional Past Medical History / Comment(s): Idiopathic pulmonary fibrosis, coronary artery disease with previous bypass surgery, aortic stenosis with a valve area of 1.3 cm, CHF with mild impairment of the LV function, peripheral vascular disease, DVT of the right lower extremity back in 2008, diabetes mellitus, diabetic foot ulcer involving the left great toe, chronic lower extremity edema, chronic hypoxic respiratory failure, previous history of non- ST segment elevation myocardial infarction Last Myocardial Infarction Date:: 05/13/2018 History of Any Multi-Drug Resistant Organisms: MRSA Date of last positivie culture/infection: 06/30/16 MDRO Source:: left foot Past Surgical History: Coronary Bypass/CABG, Heart Catheterization, Heart Catheterization With Stent, Hernia Repair, Orthopedic Surgery Additional Past Surgical History / Comment(s): CABG done 1997, all toes on the right foot amputated 04/2010, BILAT CATARACTS ,carotid endartectomy 09/07/2016 , . 06/16/16 ARTHRECTOMY WITH STENT LEFT FEMORAL ARTERY. Past Anesthesia/Blood Transfusion Reactions: No Reported Reaction Date of Last Stent Placement:: 08/19/2010 Past Psychological History: No Psychological Hx Reported Smoking Status: Former smoker Past Alcohol Use History: None Reported Past Drug Use History: None Reported - Past Family History Father Family Medical History: Cancer Additional Family Medical History / Comment(s): passed from a [place] at 63 Mother Family Medical History: Diabetes Mellitus, Myocardial Infarction ([place]) Additional Family Medical History / Comment(s): passed from a [place] at 63 Sister(s) Family Medical History: Cancer <Angie Monterroso - Last Filed: 12/14/18 16:00> General Exam <Braxton Lim - Last Filed: 12/14/18 15:36> Limitations: no limitations General appearance: alert, in no apparent distress Head exam: Present: atraumatic, normocephalic, normal inspection Eye exam: Present: normal appearance, PERRL, EOMI. Absent: scleral icterus, conjunctival injection, periorbital swelling ENT exam: Present: normal exam, normal oropharynx, mucous membranes moist, other (Patient has evidence of nosebleed from the left near. Anterior epistaxis.) Neck exam: Present: normal inspection. Absent: tenderness, meningismus, lymphadenopathy Respiratory exam: Present: normal lung sounds bilaterally. Absent: respiratory distress, wheezes, rales, rhonchi, stridor Cardiovascular Exam: Present: regular rate, normal rhythm, normal heart sounds. Absent: systolic murmur, diastolic murmur, rubs, gallop, clicks GI/Abdominal exam: Present: soft, normal bowel sounds. Absent: distended, tenderness, guarding, rebound, rigid <Angie Monterroso - Last Filed: 12/14/18 16:00> - General Exam Comments Initial Comments: 73-year-old male. Alert and oriented 3. (Angie Monterroso) Course <Braxton Lim - Last Filed: 12/14/18 15:36> <Angie Monterroso - Last Filed: 12/14/18 16:00> Vital Signs 12/14/18 12/14/18 12/14/18 12:24 13:27 14:00 Temperature 97.1 F L Pulse Rate 90 87 73 Respiratory 19 20 20 Rate Blood Pressure 135/64 131/69 108/61 O2 Sat by Pulse 96 99 98 Oximetry 12/14/18 15:15 Temperature Pulse Rate 76 Respiratory 20 Rate Blood Pressure 121/59 O2 Sat by Pulse 98 Oximetry - Reevaluation(s) Reevaluation #1: 12/14/18 15:33 PA supervision: I proceeded [id number] evaluation the patient did discuss the findings with him and his family. Patient presents with nosebleed that is recurrent. He does have evidence however of a non-ST elevation myocardial infarction with elevation of his troponin and no evidence of EKG change. He probably has had cardiac issues prior to this. He is dominant coronary artery. Patient will be admitted I did discuss case with Dr. Banda. (Braxton Lim) Reevaluation #2: 12/14/18 15:36 Visit patient's recurrent nosebleeds heparin will be withheld at this time. Patient is pain-free he did have chest pain yesterday but none today. (Braxton Lim) Medical Decision Making - Lab Data Result diagrams: 12/14/18 13:40 12/14/18 13:40 <Braxton Lim - Last Filed: 12/14/18 15:36> - Lab Data Result diagrams: 12/14/18 13:40 12/14/18 13:40 - Radiology Data Radiology results: report reviewed <Angie Monterroso - Last Filed: 12/14/18 16:00> - Medical Decision Making 73-year-old male presents from us today for chief complaint of nosebleed. He is on Plavix. He states yesterday of some chest pain and had a syncopal episode today. I did cauterize the nosebleed from the left near. Patient tolerated the procedure well. Bleeding has been subsided. She was upset chest and we did do some further workup. The EKG and lab work. EKG was reviewed negative for any significant changes. Troponin is mildly elevated at this time. Consistent with an STEMI. With his severe nosebleed I do not up with the Patient on heparin will discontinue Plavix and aspirin. The Patient was admitted with consult to cardiology. Patient feels well otherwise at this time. All questions answered. (Angie Monterroso) - Lab Data Lab Results 01/24/19 01/24/19 01/24/19 Range/Units 13:40 13:40 13:40 WBC 12.1 H (3.8-10.6) k/uL RBC 4.21 L (4.30-5.90) m/uL Hgb 13.0 (13.0-17.5) gm/dL Hct 38.0 L (39.0-53.0) % MCV 90.3 (80.0-100.0) fL MCH 30.9 (25.0-35.0) pg MCHC 34.2 (31.0-37.0) g/dL RDW 13.6 (11.5-15.5) % Plt Count 243 (150-450) k/uL Neutrophils % 81 % Lymphocytes % 11 % Monocytes % 5 % Eosinophils % 2 % Basophils % 0 % Neutrophils # 9.8 H (1.3-7.7) k/uL Lymphocytes # 1.3 (1.0-4.8) k/uL Monocytes # 0.6 (0-1.0) k/uL Eosinophils # 0.2 (0-0.7) k/uL Basophils # 0.1 (0-0.2) k/uL PT (9.0-12.0) sec INR (<1.2) APTT (22.0-30.0) sec Sodium 136 L (137-145) mmol/L Potassium 4.9 (3.5-5.1) mmol/L Chloride 100 (98-107) mmol/L Carbon Dioxide 28 (22-30) mmol/L Anion Gap 8 mmol/L BUN 31 H (9-20) mg/dL Creatinine 1.11 (0.66-1.25) mg/dL Est GFR (CKD-EPI)AfAm 77 (>60 ml/min/1.73 sqM) Est GFR (CKD-EPI)NonAf 67 (>60 ml/min/1.73 sqM) Glucose 301 H (74-99) mg/dL Calcium 9.4 (8.4-10.2) mg/dL Total Bilirubin 0.3 (0.2-1.3) mg/dL AST 20 (17-59) U/L ALT 29 (21-72) U/L Alkaline Phosphatase 83 (38-126) U/L Total Creatine Kinase 50 L (55-170) U/L CK-MB (CK-2) 1.2 (0.0-2.4) ng/mL CK-MB (CK-2) Rel Index 2.4 Troponin I 0.574 H* (0.000-0.034) ng/mL Total Protein 6.6 (6.3-8.2) g/dL Albumin 3.8 (3.5-5.0) g/dL 12/14/18 Range/Units 13:40 WBC (3.8-10.6) k/uL RBC (4.30-5.90) m/uL Hgb (13.0-17.5) gm/dL Hct (39.0-53.0) % MCV (80.0-100.0) fL MCH (25.0-35.0) pg MCHC (31.0-37.0) g/dL RDW (11.5-15.5) % Plt Count (150-450) k/uL Neutrophils % % Lymphocytes % % Monocytes % % Eosinophils % % Basophils % % Neutrophils # (1.3-7.7) k/uL Lymphocytes # (1.0-4.8) k/uL Monocytes # (0-1.0) k/uL Eosinophils # (0-0.7) k/uL Basophils # (0-0.2) k/uL PT 10.0 (9.0-12.0) sec INR 0.9 (<1.2) APTT 24.2 (22.0-30.0) sec Sodium (137-145) mmol/L Potassium (3.5-5.1) mmol/L Chloride (98-107) mmol/L Carbon Dioxide (22-30) mmol/L Anion Gap mmol/L BUN (9-20) mg/dL Creatinine (0.66-1.25) mg/dL Est GFR (CKD-EPI)AfAm (>60 ml/min/1.73 sqM) Est GFR (CKD-EPI)NonAf (>60 ml/min/1.73 sqM) Glucose (74-99) mg/dL Calcium (8.4-10.2) mg/dL Total Bilirubin (0.2-1.3) mg/dL AST (17-59) U/L ALT (21-72) U/L Alkaline Phosphatase (38-126) U/L Total Creatine Kinase (55-170) U/L CK-MB (CK-2) (0.0-2.4) ng/mL CK-MB (CK-2) Rel Index Troponin I (0.000-0.034) ng/mL Total Protein (6.3-8.2) g/dL Albumin (3.5-5.0) g/dL 12/14/18 15:59 EKG shows sinus rhythm with first-degree AV block. Nonspecific intraventricular block. T-wave and hematocrit consider lateral ischemia. Ventricular rate 86 bpm. Was 242. Chemistries 132. QTQTC 3-454. (Angie Monterroso) - Radiology Data Chest x-ray shows correlate for pulmonary fibrosis. Superimposed venous congestion or pneumonitis not excluded. (Angie Monterroso) Disposition <Braxton Lim - Last Filed: 12/14/18 15:36> Is patient prescribed a controlled substance at d/c from ED?: No Time of Disposition: 16:00 <Angie Monterroso - Last Filed: 12/14/18 16:00> Clinical Impression: NSTEMI (non-ST elevated myocardial infarction), Nosebleed Disposition: ADMITTED IP TO THIS HOSP Condition: Stable Referrals: Roque Underwood DO [Primary Care Provider] - 1-2 days
[2018-12-14 14:13] LABS: Basophils # (A) 0.1 k/uL (0-0.2); Basophils % (A) 0 %; Eosinophils # (A) 0.2 k/uL (0-0.7); Eosinophils % (A) 2 %; Lymphocytes # (A) 1.3 k/uL (1.0-4.8); Lymphocytes % (A) 11 %; MCH 30.9 pg (25.0-35.0); MCHC 34.2 g/dL (31.0-37.0); MCV 90.3 fL (80.0-100.0); Monocytes # (A) 0.6 k/uL (0-1.0); Monocytes % (A) 5 %; Neutrophils # (A) 9.8 k/uL (1.3-7.7); Neutrophils % (A) 81 %; Platelet Count 243 k/uL (150-450); RBC 4.21 m/uL (4.30-5.90); RDW 13.6 % (11.5-15.5); WBC 12.1 k/uL (3.8-10.6)
[2018-12-14 14:35] LABS: Albumin 3.8 g/dL (3.5-5.0); Calcium 9.4 mg/dL (8.4-10.2); Potassium 4.9 mmol/L (3.5-5.1); Total Bilirubin 0.3 mg/dL (0.2-1.3); Total Protein 6.6 g/dL (6.3-8.2)
[2018-12-14 14:37] LABS: INR 0.9 (<1.2); Partial Thromboplastin Time 24.2 sec (22.0-30.0)
--- NOTE | 2018-12-14 14:37 | XR ---
EXAMINATION TYPE: XR chest 2V DATE OF EXAM: 12/14/2018 COMPARISON: 07/31/2018 TECHNIQUE: PA and lateral views submitted. HISTORY: Syncope FINDINGS: Coarsened interstitium appears similar to the prior exam. Arthropathy of the shoulders. Cardiomegaly and post operative changes seen. No obvious pneumothorax. Limited inspiration. Degenerative changes o f the spine. IMPRESSION: 1. Correlate for pulmonary fibrosis. Superimposed venous congestion or pneumonitis not excluded.
[2018-12-14 14:57] LABS: Creatine Kinase MB 1.2 ng/mL (0.0-2.4)
[2018-12-14 15:02] LABS: Troponin I 0.574 ng/mL (0.000-0.034)
[2018-12-14] MEDS ORDERED: NITROGLYCERIN SL TABS 0.4 MG TAB SUBLINGUAL PRN (16:00)
[2018-12-14 17:15] LABS: Appearance,Urine Clear (Clear); Bilirubin,Urine Negative (Negative); Blood,Urine Negative (Negative); Color,Urine Yellow; Glucose,Urine (UA) 4+ (Negative); Ketones,Urine Negative (Negative); Leukocyte Esterase,Urine Negative (Negative); Nitrite,Urine Negative (Negative); PH, Urine 5.5 (5.0-8.0); Protein,Urine Trace (Negative); Specific Gravity,Urine 1.019 (1.001-1.035); Urobilinogen,Urine <2.0 mg/dL (<2.0)
[2018-12-14 20:20] LABS: Creatine Kinase MB 1.9 ng/mL (0.0-2.4)
[2018-12-14 20:32] LABS: Troponin I 1.16 ng/mL (0.000-0.034)
[2018-12-14 21:25] LABS: Glucose,Whole Blood 221 mg/dL (75-99)
[2018-12-14] MEDS ORDERED: FAMOTIDINE 20 MG TAB PO PRN (23:40)
[2018-12-14] MEDS ORDERED: INSULIN GLARGINE 20 UNIT SQ SCH (23:45)
[2018-12-15] MEDS ORDERED: INSULIN DETEMIR 100 UNIT/ML 10 ML VIAL SQ SCH
--- NOTE | 2018-12-15 00:09 | P.HPIM ---
History of Present Illness H&P Date: 12/14/18 Chief Complaint: Nose Bleed Patient is a 73-year-old male pulmonary fibrosis, chronic hypoxic respiratory failure on home oxygen, coronary artery disease with history of CABG and also history of stent placement, diabetes type 2, hypertension, hyperlipidemia and I aortic stenosis, peripheral vascular disease and also history of DVT in 2008 currently not on any anticoagulation other than aspirin Plavix came to ER with the complaints of mainly from the left nostril. Patient has been having on and offfor the past 4 days and patient did have cauterization done about one week ago. Patient started having nosebleed with history blood clots since 4 AM today. Patient also had syncopal episode while he was in the bathroom before he was coming here. Patient also felt some chest pain left retrosternal. Denied any radiation. Denied any associated shortness of breath. No nausea vomiting or abdominal pain. No headache or dizziness or lightheadedness.. Patient was found have elevated troponin level 0.574 and 1.160 EKG showed sinus rhythm with first-degree AV block Chest x-ray showed consistent with pulmonary fibrosis. Superimposed venous congestion or pneumonitis cannot be excluded. Patient says that he has been using humidified oxygen at home and also has humidified. Review of Systems Constitutional: Patient denies any fever or chills . No generalized weakness or weight loss. Abdomen: Patient denied nausea vomiting and diarrhea and abdominal pain. Cardiovascular: Patient denies any chest pain or short of breath no palpitations. Respiratory: patient denied any cough is from production. No shortness of breath Neurologic: Patient denied any numbness or tingling headache. Patient does have nosebleed Musculoskeletal: Patient denies any complaints of joint swelling or deformity. Skin: Negative Psychiatric: Negative Endocrine: No heat or cold intolerance. No recent weight gain. Genitourinary: No dysuria or hematuria. All other 14 point ROS negative except the above Past Medical History Past Medical History: Heart Failure, Diabetes Mellitus, Deep Vein Thrombosis ( DVT), GERD/Reflux, Hyperlipidemia, Hypertension, Myocardial Infarction ([place]), Vascular Disorder Additional Past Medical History / Comment(s): Idiopathic pulmonary fibrosis, coronary artery disease with previous bypass surgery,previously documented( - aortic stenosis with a valve area of 1.3 cm), peripheral vascular disease, DVT of the right lower extremity back in 2008, diabetes mellitus, diabetic foot ulcer involving the left great toe, chronic lower extremity edema, chronic hypoxic respiratory failure, previous history of non-ST segment elevation myocardial infarction. upper front dental bridge,per -pt "4 weeks ago pt had blood behind eyes but no stroke" Last Myocardial Infarction Date:: 05/13/2018 History of Any Multi-Drug Resistant Organisms: MRSA Date of last positivie culture/infection: 06/30/16 MDRO Source:: left foot Past Surgical History: Coronary Bypass/CABG, Heart Catheterization, Heart Catheterization With Stent, Hernia Repair, Orthopedic Surgery Additional Past Surgical History / Comment(s): CABG done 1997, all toes on the right foot amputated 04/2010, BILAT CATARACTS ,carotid endartectomy 09/07/2016 , . 06/16/16 ARTHRECTOMY WITH STENT LEFT FEMORAL ARTERY. nasal cauterization Past Anesthesia/Blood Transfusion Reactions: No Reported Reaction Additional Past Anesthesia/Blood Transfusion Reaction / Comment(s): has never received any blood transfusions Date of Last Stent Placement:: 08/19/2010 Smoking Status: Former smoker - Past Family History Father Family Medical History: Cancer Additional Family Medical History / Comment(s): passed from a [place] at 63 Mother Family Medical History: Diabetes Mellitus, Myocardial Infarction ([place]) Additional Family Medical History / Comment(s): passed from a [place] at 63 Sister(s) Family Medical History: Cancer Medications and Allergies Home Medications Medication Instructions Recorded Confirmed Type Insulin Glargine [Lantus] 20 units SQ HS 03/16/14 12/14/18 History Pioglitazone HCl [Actos] 45 mg PO DAILY 03/16/14 12/14/18 History Aspirin EC [Ecotrin Low Dose] 81 mg PO DAILY 03/22/16 12/14/18 History Losartan [Cozaar] 25 mg PO QAM 05/05/16 12/14/18 History Furosemide [Lasix] 40 mg PO BID 05/27/16 12/14/18 History metFORMIN HCL 1,000 mg PO QAM 08/26/16 12/14/18 History metFORMIN HCL [Glucophage] 500 mg PO HS 08/26/16 12/14/18 History Clopidogrel [Plavix] 75 mg PO DAILY 05/13/18 12/14/18 History Pirfenidone [Esbriet] 801 mg PO TID-W/MEALS 05/13/18 12/14/18 History Spironolactone [Aldactone] 25 mg PO DAILY 05/13/18 12/14/18 History glyBURIDE [Diabeta] 5 mg PO HS 05/13/18 12/14/18 History glyBURIDE [Diabeta] 10 mg PO AC-BRKFST 05/13/18 12/14/18 History sitaGLIPtin [Januvia] 100 mg PO DAILY 05/13/18 12/14/18 History Atorvastatin [Lipitor] 80 mg PO DAILY #30 tab 05/17/18 12/14/18 Rx Isosorbide Mononitrate ER [Imdur] 60 mg PO BID #60 tab.er.24h 05/17/18 12/14/18 Rx Metoprolol Tartrate [Lopressor] 25 mg PO BID #60 tab 05/17/18 12/14/18 Rx Nitroglycerin Sl Tabs [Nitrostat] 0.4 mg SUBLINGUAL Q5M PRN #25 tab 05/17/18 Rx Ranolazine [Ranexa] 500 mg PO Q12HR #60 tab.er.12h 05/17/18 12/14/18 Rx Ranitidine HCl [Zantac] 150 mg PO DAILY PRN 12/14/18 12/14/18 History Allergies Allergy/AdvReac Type Severity Reaction Status Date / Time No Known Allergies Allergy Verified 12/14/18 12:59 Physical Exam Vitals: Vital Signs Temp Pulse Pulse Resp BP BP Pulse Ox 12/14/18 18:54 65 18 118/59 93 L 12/14/18 17:39 98.3 F 61 20 120/56 96 12/14/18 16:00 68 20 115/63 95 12/14/18 15:15 76 20 121/59 98 12/14/18 14:00 73 20 108/61 98 12/14/18 13:27 87 20 131/69 99 12/14/18 12:24 97.1 F L 90 19 135/64 96 Intake and Output 12/14/18 12/14/18 12/14/18 06:59 14:59 22:59 Other: Weight 87.543 kg PHYSICAL EXAMINATION: Patient is lying in the bed comfortably, no acute distress, awake alert and oriented.. HEENT: Normocephalic. Neck is supple. Pupils reactive. Nostrils clear. Oral cavity is moist. Ears reveal no drainage. Neck reveals no JVD, carotid bruits, or thyromegaly. CHEST EXAMINATION: Trachea is central. Symmetrical expansion. Lung montes clear to auscultation and percussion. Bilateral fine crackles positive. CARDIAC: Normal S1, S2 with no gallops. Systolic murmur positive ABDOMEN: Soft. Bowel sounds normal. No organomegaly. No abdominal bruits. Extremities: reveal no edema. No clubbing or cyanosis Neurologically awake, alert, oriented x3 with well-coordinated movements. No focal deficits noted Skin: No rash or skin lesions. Psychiatric: Coperative. Nonsuicidal Musculoskeletal: No joint swelling or deformity. Normal range of motion. Results CBC & Chem 7: 12/14/18 13:40 12/14/18 13:40 Labs: Abnormal Lab Results - Last 24 Hours (Table) 12/14/18 12/14/18 12/14/18 Range/Units 13:40 13:40 13:40 WBC 12.1 H (3.8-10.6) k/uL RBC 4.21 L (4.30-5.90) m/uL Hct 38.0 L (39.0-53.0) % Neutrophils # 9.8 H (1.3-7.7) k/uL Sodium 136 L (137-145) mmol/L BUN 31 H (9-20) mg/dL Glucose 301 H (74-99) mg/dL POC Glucose (mg/dL) (75-99) mg/dL Total Creatine Kinase 50 L (55-170) U/L Troponin I 0.574 H* (0.000-0.034) ng/mL Urine Protein (Negative) Urine Glucose (UA) (Negative) 12/14/18 12/14/18 12/14/18 Range/Units 16:45 19:26 21:22 WBC (3.8-10.6) k/uL RBC (4.30-5.90) m/uL Hct (39.0-53.0) % Neutrophils # (1.3-7.7) k/uL Sodium (137-145) mmol/L BUN (9-20) mg/dL Glucose (74-99) mg/dL POC Glucose (mg/dL) 221 H (75-99) mg/dL Total Creatine Kinase 53 L (55-170) U/L Troponin I 1.160 H* (0.000-0.034) ng/mL Urine Protein Trace H (Negative) Urine Glucose (UA) 4+ H (Negative) Thrombosis Risk Factor Assmnt - DVT/VTE Prophylaxis DVT/VTE Prophylaxis: Pharmacologic Prophylaxis ordered - Choose All That Apply Any of the Below Risk Factors Present?: Yes Each Factor Represents 1 point: Obesity (BMI >25) Other Risk Factors: Yes Each Risk Factor Represents 2 Points: Age 61-74 years Other congenital or acquired thrombophilia - If yes, enter type in comment: No Thrombosis Risk Factor Assessment Total Risk Factor Score: 3 Thrombosis Risk Factor Assessment Level: Moderate Risk Assessment and Plan Assessment: Acute nose bleed/epistaxis. With history of cauterization on 12/07/2018 Syncope. Possible vasovagal Elevated troponin level. Possible non-ST elevated [place] Peripheral vascular disease with left femoral artery stent placement Coronary artery disease with history of CABG and stent placement. Maximal medical therapy was recommended by cardiology History of DVT in 2008 Diabetes type 2 History of diabetic foot ulcer involving left great toe Chronic lower extremity edema Idiopathic Pulmonary fibrosis Chronic hypoxic respiratory failure secondary to pulmonary fibrosis History of [place] GERD Hypertension Hyperlipidemia Previous history of smoking Plan: Patient will be continued to monitor for any further nosebleed. ENT was consulted. Cardiology was consulted due to elevated troponin level. Continue to monitor H&H. Continue to monitor blood pressures and orthostatic vitals. Continue with home medications and follow closely. Continue with oxygen therapy. Insulin dosing. Further recommendations based on the clinical course. Prognosis is guarded with multiple medical problems and comorbid conditions. Time with Patient: Greater than 30
[2018-12-15 02:35] LABS: Creatine Kinase MB 1.5 ng/mL (0.0-2.4)
[2018-12-15 02:41] LABS: Troponin I 0.918 ng/mL (0.000-0.034)
[2018-12-15 03:52] LABS: Cholesterol 137 mg/dL (<200); HDL Cholesterol 41 mg/dL (40-60); LDL Cholesterol,Calculated 56 mg/dL (0-99); Triglycerides 198 mg/dL (<150)
[2018-12-15 06:06] LABS: Glucose,Whole Blood 175 mg/dL (75-99)
[2018-12-15] MEDS: glipiZIDE 10 MG TAB PO SCH ×2 (06:22→21:09)
[2018-12-15] MEDS ORDERED: ASPIRIN 325 MG TAB PO SCH (09:00)
[2018-12-15] MEDS: ASPIRIN 81 MG PO SCH (10:18)
[2018-12-15] MEDS: CLOPIDOGREL 75 MG TAB PO SCH (10:18)
[2018-12-15] MEDS: ISOSORBIDE MONONITRATE ER 60 MG TAB.ER.24H PO SCH ×2 (10:19→21:08)
[2018-12-15] MEDS: METOPROLOL TARTRATE 25 MG TAB PO SCH ×2 (10:19→21:09)
[2018-12-15] MEDS: SPIRONOLACTONE 25 MG TAB PO SCH (10:19)
[2018-12-15] MEDS: FUROSEMIDE 20 MG TAB PO SCH ×2 (10:19→21:08)
[2018-12-15] MEDS: LOSARTAN 25 MG TAB PO SCH (10:19)
[2018-12-15] MEDS: PIOGLITAZONE 45 MG TAB PO SCH (10:20)
[2018-12-15] MEDS: ATORVASTATIN 80 MG TAB PO SCH (10:20)
[2018-12-15] MEDS: RANOLAZINE 500 MG TAB.ER.12H PO SCH ×2 (10:20→21:08)
[2018-12-15] MEDS: metFORMIN 500 MG TAB PO SCH ×2 (10:20→21:07)
[2018-12-15] MEDS: LINAGLIPTIN 5 MG TABLET PO SCH (10:20)
[2018-12-15] MEDS: PIRFENIDONE 801 MG PO SCH ×3 (11:18→18:56)
[2018-12-15 11:27] LABS: Glucose,Whole Blood 158 mg/dL (75-99)
[2018-12-15 12:51] LABS: Hemoglobin A1C 7.4 % (4.0-6.0)
[2018-12-15 16:10] LABS: Glucose,Whole Blood 182 mg/dL (75-99)
--- NOTE | 2018-12-15 18:05 | P.CRDCN ---
History of Present Illness Consult date: 12/15/18 Chief complaint: Syncope History of present illness: This is a pleasant 73-year-old gentleman who I follow in the office as an outpatient with a past medical history significant for coronary artery disease and status post coronary artery that is grafting as well as coronary artery stenting, peripheral arterial disease, ischemic cardiomyopathy with EF around 40 -45%, valvular heart disease with known mild aortic stenosis, as well as chronic hypoxic respiratory failure secondary to pulmonary fibrosis presented to the emergency room with syncope. The patient was in his usual state of health where he is on oxygen 24 7 until last few days when he started struggling with nosebleed because of the nasal cannula. Yesterday he was at home when he was walking to his kitchen and suddenly he lost his consciousness. The episode was witnessed by his family. At that point and because was called and the patient was brought to the emergency room. In the ER he was found to have nosebleed and he underwent cauterization and the bleeding was stopped immediately. The hemoglobin continues to be stable. He was receiving dual antiplatelet therapy and continue on them at this point. We get involved in the patient's care because of abnormal cardiac enzymes and troponin was elevated. No EKG changes concerning for ischemia. No symptoms of chest pain or chest discomfort. He does have shortness of breath which is chronic and related to pulmonary fibrosis mainly. The last heart catheterization was performed in May 2018 and that revealed heavily calcified right and left coronary system with occluded right coronary artery, left circumflex, and LAD. The DAVENPORT to LAD was patent but there was diffuse disease in the LAD distal to the DAVENPORT anastomosis. The SVG to left circumflex was occluded as well at that point. Maximize medical treatment was advised. He continues to be on dual antiplatelet therapy, oral nitrates, as well as statin. I would advise a conservative medical approach at this point of time. Past Medical History Past Medical History: Heart Failure, Diabetes Mellitus, Deep Vein Thrombosis ( DVT), GERD/Reflux, Hyperlipidemia, Hypertension, Myocardial Infarction (PA), Vascular Disorder Additional Past Medical History / Comment(s): Idiopathic pulmonary fibrosis, coronary artery disease with previous bypass surgery,previously documented( - aortic stenosis with a valve area of 1.3 cm), peripheral vascular disease, DVT of the right lower extremity back in 2008, diabetes mellitus, diabetic foot ulcer involving the left great toe, chronic lower extremity edema, chronic hypoxic respiratory failure, previous history of non-ST segment elevation myocardial infarction. upper front dental bridge,per -pt "4 weeks ago pt had blood behind eyes but no stroke" Last Myocardial Infarction Date:: 05/13/2018 History of Any Multi-Drug Resistant Organisms: MRSA Date of last positivie culture/infection: 06/30/16 MDRO Source:: left foot Past Surgical History: Coronary Bypass/CABG, Heart Catheterization, Heart Catheterization With Stent, Hernia Repair, Orthopedic Surgery Additional Past Surgical History / Comment(s): CABG done 1997, all toes on the right foot amputated 04/2010, BILAT CATARACTS ,carotid endartectomy 09/07/2016 , . 06/16/16 ARTHRECTOMY WITH STENT LEFT FEMORAL ARTERY. nasal cauterization Past Anesthesia/Blood Transfusion Reactions: No Reported Reaction Additional Past Anesthesia/Blood Transfusion Reaction / Comment(s): has never received any blood transfusions Date of Last Stent Placement:: 08/19/2010 Smoking Status: Former smoker - Past Family History Father Family Medical History: Cancer Additional Family Medical History / Comment(s): passed from a PA at 63 Mother Family Medical History: Diabetes Mellitus, Myocardial Infarction (PA) Additional Family Medical History / Comment(s): passed from a PA at 63 Sister(s) Family Medical History: Cancer Medications and Allergies Home Medications Medication Instructions Recorded Confirmed Type Insulin Glargine [Lantus] 20 units SQ HS 03/16/14 12/14/18 History Pioglitazone HCl [Actos] 45 mg PO DAILY 03/16/14 12/14/18 History Aspirin EC [Ecotrin Low Dose] 81 mg PO DAILY 03/22/16 12/14/18 History Losartan [Cozaar] 25 mg PO QAM 05/05/16 12/14/18 History Furosemide [Lasix] 40 mg PO BID 05/27/16 12/14/18 History metFORMIN HCL 1,000 mg PO QAM 08/26/16 12/14/18 History metFORMIN HCL [Glucophage] 500 mg PO HS 08/26/16 12/14/18 History Clopidogrel [Plavix] 75 mg PO DAILY 05/13/18 12/14/18 History Pirfenidone [Esbriet] 801 mg PO TID-W/MEALS 05/13/18 12/14/18 History Spironolactone [Aldactone] 25 mg PO DAILY 05/13/18 12/14/18 History glyBURIDE [Diabeta] 5 mg PO HS 05/13/18 12/14/18 History glyBURIDE [Diabeta] 10 mg PO AC-BRKFST 05/13/18 12/14/18 History sitaGLIPtin [Januvia] 100 mg PO DAILY 05/13/18 12/14/18 History Atorvastatin [Lipitor] 80 mg PO DAILY #30 tab 05/17/18 12/14/18 Rx Isosorbide Mononitrate ER [Imdur] 60 mg PO BID #60 tab.er.24h 05/17/18 12/14/18 Rx Metoprolol Tartrate [Lopressor] 25 mg PO BID #60 tab 05/17/18 12/14/18 Rx Nitroglycerin Sl Tabs [Nitrostat] 0.4 mg SUBLINGUAL Q5M PRN #25 tab 05/17/18 Rx Ranolazine [Ranexa] 500 mg PO Q12HR #60 tab.er.12h 05/17/18 12/14/18 Rx Ranitidine HCl [Zantac] 150 mg PO DAILY PRN 12/14/18 12/14/18 History Allergies Allergy/AdvReac Type Severity Reaction Status Date / Time No Known Allergies Allergy Verified 12/14/18 12:59 Physical Exam Vitals: Vital Signs Temp Pulse Resp BP Pulse Ox 12/15/18 16:00 62 18 12/15/18 15:21 97.4 F L 96 18 101/45 96 12/15/18 12:00 97.4 F L 68 18 81/39 92 L 12/15/18 08:00 97.6 F 74 18 145/65 94 L 12/15/18 04:00 97 F L 67 18 130/65 96 12/15/18 00:00 75 18 129/73 95 12/14/18 20:00 96.8 F L 65 18 123/61 95 12/14/18 18:54 65 18 118/59 93 L Intake and Output 12/15/18 12/15/18 12/15/18 06:59 14:59 22:59 Output Total 500 800 Balance -500 -800 Output: Urine 500 800 Other: # Voids 1 # Bowel Movements 1 Weight 88.6 kg - Constitutional General appearance: no acute distress - Respiratory Respiratory: bilateral: rales - Cardiovascular Rhythm: regular Heart sounds: normal: S1, S2 Abnormal Heart Sounds: systolic murmur Results 12/14/18 13:40 12/14/18 13:40 Cardiac Enzymes 12/14/18 12/15/18 Range/Units 19:26 01:19 CK-MB (CK-2) 1.9 1.5 (0.0-2.4) ng/mL Troponin I 1.160 H* 0.918 H* (0.000-0.034) ng/mL Lipids 12/14/18 Range/Units 13:40 Triglycerides 198 H (<150) mg/dL Cholesterol 137 (<200) mg/dL HDL Cholesterol 41 (40-60) mg/dL Current Medications Generic Name Dose Route Start Last Admin Trade Name Freq PRN Reason Stop Dose Admin Aspirin 81 mg 12/15/18 09:00 12/15/18 10:18 Aspirin PO 81 mg DAILY ELVER Administration Atorvastatin Calcium 80 mg 12/15/18 09:00 12/15/18 10:20 Lipitor PO 80 mg DAILY ELVER Administration Clopidogrel Bisulfate 75 mg 12/15/18 09:00 12/15/18 10:18 Plavix PO 75 mg DAILY ELVER Administration Famotidine 20 mg 12/14/18 23:40 Pepcid PO DAILY PRN Heartburn Furosemide 40 mg 12/15/18 09:00 12/15/18 10:19 Lasix PO 40 mg BID ELVER Administration Glipizide 10 mg 12/15/18 21:00 Glucotrol PO HS ELVER Glipizide 20 mg 12/15/18 07:30 12/15/18 06:22 Glucotrol PO 20 mg AC-BRKFST ELVER Administration Insulin Detemir 20 unit 12/15/18 21:00 Levemir SQ HS ELVER Isosorbide Mononitrate 60 mg 12/15/18 09:00 12/15/18 10:19 Imdur PO 60 mg BID ELVER Administration Linagliptin 5 mg 12/15/18 09:00 12/15/18 10:20 Tradjenta PO 5 mg DAILY ELVER Administration Losartan Potassium 25 mg 12/15/18 09:00 12/15/18 10:19 Cozaar PO 25 mg QAM ELVER Administration Metformin HCl 500 mg 12/15/18 21:00 Glucophage PO HS ELVER Metformin HCl 1,000 mg 12/15/18 09:00 12/15/18 10:20 Glucophage PO 1,000 mg QAM ELVER Administration Metoprolol Tartrate 25 mg 12/15/18 09:00 12/15/18 10:19 Lopressor PO 25 mg BID ELVER Administration Nitroglycerin 0.4 mg 12/14/18 16:00 Nitrostat SUBLINGUAL Q5M PRN Chest Pain Non-Formulary Medication 801 mg 12/15/18 07:30 12/15/18 13:59 Pirfenidone [Esbriet] PO 801 mg TID-W/MEALS ELVER Administration Pioglitazone HCl 45 mg 12/15/18 09:00 12/15/18 10:20 Actos PO 45 mg DAILY ELVER Administration Ranolazine 500 mg 12/15/18 09:00 12/15/18 10:20 Ranexa PO 500 mg Q12HR ELVER Administration Spironolactone 25 mg 12/15/18 09:00 12/15/18 10:19 Aldactone PO 25 mg DAILY ELVER Administration Intake and Output 12/15/18 12/15/18 12/15/18 06:59 14:59 22:59 Output Total 500 800 Balance -500 -800 Output: Urine 500 800 Other: # Voids 1 # Bowel Movements 1 Weight 88.6 kg 12/14/18 13:40 12/14/18 13:40 Assessment and Plan Assessment: Assessment #1 acute non-ST elevation myocardial infarction, likely type II [place], giving the patient possible hypoxemia related to severe nosebleed and clots in the nose #2 known severe underlying coronary artery disease as described above #3 ischemic cardiomyopathy with known ejection fraction around 40-45% #4 valvular heart disease with known mild aortic stenosis #5 pulmonary fibrosis on oxygen at home #6 multiple comorbid conditions Plan #1 I would advise a conservative medical approach regarding non-ST deviation myocardial infarction in the absence of any chest pain or chest discomfort or ischemic EKG changes. #2 his abnormal cardiac enzymes is likely related to type II [place], the patient did have multiple clots in the nose and he was quite hypoxic at home. #3 continue the current medical regimen which included dual antiplatelet therapy along with a statin as well as oral nitrate #4 repeat the echocardiogram #5 rule out cardiac arrhythmia as an etiology for his syncope, giving his history of cardiomyopathy, will the syncope could be related to V. tach. #5 we'll continue following up with him. Thank you for allowing us participate in his care and we will continue following up with the patient.
[2018-12-15 18:43] LABS: Calcium 9.5 mg/dL (8.4-10.2); Total Bilirubin 0.8 mg/dL (0.2-1.3); Total Protein 7.2 g/dL (6.3-8.2)
[2018-12-15 18:45] LABS: Potassium 5.7 mmol/L (3.5-5.1)
[2018-12-15 20:33] LABS: Glucose,Whole Blood 248 mg/dL (75-99)
[2018-12-15] MEDS: INSULIN DETEMIR 100 UNIT/ML 10 ML VIAL SQ SCH (21:09)
[2018-12-15] MEDS ORDERED: SODIUM POLYSTYRENE SULFONATE 15 GM/60 ML BOTTLE PO STA (22:30)
[2018-12-16 06:58] LABS: Glucose,Whole Blood 90 mg/dL (75-99)
[2018-12-16] MEDS: PIRFENIDONE 801 MG PO SCH ×2 (08:23→17:30)
[2018-12-16] MEDS: ATORVASTATIN 80 MG TAB PO SCH (08:24)
[2018-12-16] MEDS: RANOLAZINE 500 MG TAB.ER.12H PO SCH ×2 (08:24→22:25)
[2018-12-16] MEDS: METOPROLOL TARTRATE 25 MG TAB PO SCH ×2 (08:24→22:25)
[2018-12-16] MEDS: LOSARTAN 25 MG TAB PO SCH (08:24)
[2018-12-16] MEDS: metFORMIN 500 MG TAB PO SCH ×2 (08:24→22:24)
[2018-12-16] MEDS: ASPIRIN 81 MG PO SCH (08:24)
[2018-12-16] MEDS: FUROSEMIDE 20 MG TAB PO SCH ×2 (08:24→22:24)
[2018-12-16] MEDS: glipiZIDE 10 MG TAB PO SCH ×2 (08:24→22:56)
[2018-12-16] MEDS: LINAGLIPTIN 5 MG TABLET PO SCH (08:24)
[2018-12-16] MEDS: CLOPIDOGREL 75 MG TAB PO SCH (08:24)
[2018-12-16] MEDS: PIOGLITAZONE 45 MG TAB PO SCH (08:25)
[2018-12-16] MEDS: SPIRONOLACTONE 25 MG TAB PO SCH (08:25)
[2018-12-16] MEDS: ISOSORBIDE MONONITRATE ER 60 MG TAB.ER.24H PO SCH ×2 (08:25→22:24)
[2018-12-16 11:11] LABS: Glucose,Whole Blood 283 mg/dL (75-99)
--- NOTE | 2018-12-16 11:54 | P.PN ---
Subjective Progress Note Date: 12/16/18 Principal diagnosis: Non-ST elevation [place] This is a pleasant 73-year-old gentleman who I follow in the office as an outpatient with a past medical history significant for coronary artery disease and status post coronary artery that is grafting as well as coronary artery stenting, peripheral arterial disease, ischemic cardiomyopathy with EF around 40 -45%, valvular heart disease with known mild aortic stenosis, as well as chronic hypoxic respiratory failure secondary to pulmonary fibrosis presented to the emergency room with syncope. The patient was in his usual state of health where he is on oxygen 24 7 until last few days when he started struggling with nosebleed because of the nasal cannula. Yesterday he was at home when he was walking to his kitchen and suddenly he lost his consciousness. The episode was witnessed by his family. At that point and because was called and the patient was brought to the emergency room. In the ER he was found to have nosebleed and he underwent cauterization and the bleeding was stopped immediately. The hemoglobin continues to be stable. He was receiving dual antiplatelet therapy and continue on them at this point. We get involved in the patient's care because of abnormal cardiac enzymes and troponin was elevated. No EKG changes concerning for ischemia. No symptoms of chest pain or chest discomfort. He does have shortness of breath which is chronic and related to pulmonary fibrosis mainly. The last heart catheterization was performed in May 2018 and that revealed heavily calcified right and left coronary system with occluded right coronary artery, left circumflex, and LAD. The DAVENPORT to LAD was patent but there was diffuse disease in the LAD distal to the DAVENPORT anastomosis. The SVG to left circumflex was occluded as well at that point. Maximize medical treatment was advised. He continues to be on dual antiplatelet therapy, oral nitrates, as well as statin. I'll On follow-up with the patient today, 12/16/2018, the patient remains asymptomatic from a cardiovascular standpoint of view. No chest pain or discomfort and no shortness of breath. Objective - Vital Signs Vital signs: Vital Signs Temp 98.2 F 12/16/18 04:00 Pulse 52 L 12/16/18 04:00 Resp 14 12/16/18 04:00 BP 119/71 12/16/18 04:00 Pulse Ox 96 12/16/18 04:00 Intake & Output 12/15/18 12/16/18 12/16/18 18:59 06:59 18:59 Intake Total 600 Output Total 800 800 Balance -800 -800 600 Weight 87.8 kg Intake: Oral 600 Output: Urine 800 800 Other: # Voids 1 # Bowel Movements 1 - Constitutional General appearance: Present: no acute distress - Respiratory Respiratory: bilateral: rales - Cardiovascular Rhythm: regular Heart sounds: normal: S1, S2 Abnormal Heart Sounds: Present: systolic murmur - Labs CBC & Chem 7: 12/14/18 13:40 12/15/18 18:01 Labs: Abnormal Lab Results - Last 24 Hours (Table) 12/14/18 12/15/18 12/15/18 Range/Units 13:40 16:09 18:01 Potassium 5.7 H (3.5-5.1) mmol/L BUN 26 H (9-20) mg/dL Glucose 215 H (74-99) mg/dL POC Glucose (mg/dL) 182 H (75-99) mg/dL Hemoglobin A1c 7.4 H (4.0-6.0) % ALT 20 L (21-72) U/L 12/15/18 Range/Units 20:32 Potassium (3.5-5.1) mmol/L BUN (9-20) mg/dL Glucose (74-99) mg/dL POC Glucose (mg/dL) 248 H (75-99) mg/dL Hemoglobin A1c (4.0-6.0) % ALT (21-72) U/L Assessment and Plan Assessment: Assessment #1 acute non-ST elevation myocardial infarction, likely type II [place], giving the patient possible hypoxemia related to severe nosebleed and clots in the nose #2 known severe underlying coronary artery disease as described above #3 ischemic cardiomyopathy with known ejection fraction around 40-45% #4 valvular heart disease with known mild aortic stenosis #5 pulmonary fibrosis on oxygen at home #6 multiple comorbid conditions Plan #1 I would advise a conservative medical approach regarding non-ST deviation myocardial infarction in the absence of any chest pain or chest discomfort or ischemic EKG changes. #2 his abnormal cardiac enzymes is likely related to type II [place], the patient did have multiple clots in the nose and he was quite hypoxic at home. #3 continue the current medical regimen which included dual antiplatelet therapy along with a statin as well as oral nitrate #4 follow-up on the echocardiogram #5 rule out cardiac arrhythmia as an etiology for his syncope, giving his history of cardiomyopathy, will the syncope could be related to V. tach. #5 we'll continue following up with him. #6 I would advise monitoring the patient for one more day. Thank you for allowing us participate in his care and we will continue following up with the patient.
--- NOTE | 2018-12-16 18:46 | ECHOF ---
Referral Reason:nstemi MEASUREMENTS -------- HEIGHT: 180.3 cm WEIGHT: 87.5 kg BP: 119/71 RVIDd: 3.6 cm (< 3.3) IVSd: 1.3 cm (0.6 - 1.1) LVIDd: 5.2 cm (3.9 - 5.3) LVPWd: 1.4 cm (0.6 - 1.1) IVSs: 1.4 cm LVIDs: 4.6 cm LVPWs: 1.5 cm LA Diam: 4.8 cm (2.7 - 3.8) LAESV Index (A-L): 27.95 ml/m Ao Diam: 3.6 cm (2.0 - 3.7) AV Cusp: 1.6 cm (1.5 - 2.6) LA Diam: 5.1 cm (2.7 - 3.8) EPSS: 0.9 cm MV E Arias: 1.05 m/s MV DecT: 261 ms MV A Arias: 1.05 m/s MV E/A Ratio: 0.99 AV maxP.51 mmHg AV meanP.54 mmHg RAP: 5.00 mmHg RVSP: 19.00 mmHg MV EF SLOPE: 149.77 mm/s (70 - 150) MV EXCURSION: 1.95 cm (> 18.000) FINDINGS -------- Sinus rhythm. This was a technically difficult study with suboptimal views. The left ventricular size is normal. There is mild concentric left ventricular hypertrophy. Overa ll left ventricular systolic function is mild-moderately impaired with, an EF between 40 - 45 %. La teral hypokinesis Inferior Hypokinesis The right ventricle is mildly enlarged. Normal LA size by volume 22+/-6 ml/m2. The right atrium is normal in size. 3 ml of Lumason was utilized for enhancement of images. Aortic valve is trileaflet and is moderately thickened. Trace amount of aortic regurgitation. Th ere is mild aortic stenosis present. Peak/mean gradient across the Aortic Valve is 18.51mmHg / 10.5 4mmHg. The mitral valve leaflets are mildly thickened. Mild mitral annular calcification present. Modera te mitral regurgitation is present. Mild tricuspid regurgitation present. Right ventricular systolic pressure is normal at < 35 mmHg. There is no evidence of pulmonary hypertension. Trace/mild (physiologic) pulmonic regurgitation. The aortic root size is normal. Normal inferior vena cava with normal inspiratory collapse consistent with estimated right atrial pre ssure of 5 mmHg. There is no pericardial effusion. CONCLUSIONS -------- 1. Sinus rhythm. 2. This was a technically difficult study with suboptimal views. 3. The left ventricular size is normal. 4. There is mild concentric left ventricular hypertrophy. 5. Overall left ventricular systolic function is mild-moderately impaired with, an EF between 40 - 45 %. 6. Lateral hypokinesis 7. Inferior Hypokinesis 8. The right ventricle is mildly enlarged. 9. Normal LA size by volume 22+/-6 ml/m2. 10. 3 ml of Lumason was utilized for enhancement of images. 11. Aortic valve is trileaflet and is moderately thickened. 12. Trace amount of aortic regurgitation. 13. There is mild aortic stenosis present. 14. Peak/mean gradient across the Aortic Valve is 18.51mmHg / 10.54mmHg. 15. The mitral valve leaflets are mildly thickened. 16. Mild mitral annular calcification present. 17. Moderate mitral regurgitation is present. 18. Mild tricuspid regurgitation present. 19. Right ventricular systolic pressure is normal at < 35 mmHg. 20. There is no evidence of pulmonary hypertension. 21. Trace/mild (physiologic) pulmonic regurgitation. 22. The aortic root size is normal. 23. There is no pericardial effusion. CHARGE AUTHORIZER: Khurram Hernandez RDCS
[2018-12-16 18:47] LABS: Glucose,Whole Blood 118 mg/dL (75-99)
[2018-12-16 20:06] LABS: Glucose,Whole Blood 171 mg/dL (75-99)
[2018-12-16] MEDS: INSULIN DETEMIR 100 UNIT/ML 10 ML VIAL SQ SCH (22:56)
[2018-12-17 03:43] VITALS: RESP 18
[2018-12-17 06:22] LABS: Glucose,Whole Blood 120 mg/dL (75-99)
[2018-12-17] MEDS: glipiZIDE 10 MG TAB PO SCH (07:04)
[2018-12-17 09:17] VITALS: BP 117/57; PULSE 56; TEMP 97.4
[2018-12-17] MEDS: FUROSEMIDE 20 MG TAB PO SCH (09:17)
[2018-12-17] MEDS: RANOLAZINE 500 MG TAB.ER.12H PO SCH (09:17)
[2018-12-17] MEDS: LINAGLIPTIN 5 MG TABLET PO SCH (09:17)
[2018-12-17] MEDS: METOPROLOL TARTRATE 25 MG TAB PO SCH (09:17)
[2018-12-17] MEDS: ISOSORBIDE MONONITRATE ER 60 MG TAB.ER.24H PO SCH (09:17)
[2018-12-17] MEDS: metFORMIN 500 MG TAB PO SCH (09:17)
[2018-12-17] MEDS: CLOPIDOGREL 75 MG TAB PO SCH (09:17)
[2018-12-17] MEDS: ATORVASTATIN 80 MG TAB PO SCH (09:17)
[2018-12-17] MEDS: ASPIRIN 81 MG PO SCH (09:18)
[2018-12-17] MEDS: SPIRONOLACTONE 25 MG TAB PO SCH (09:18)
[2018-12-17] MEDS: LOSARTAN 25 MG TAB PO SCH (09:18)
[2018-12-17] MEDS: PIRFENIDONE 801 MG PO SCH ×2 (09:18)
[2018-12-17] MEDS: PIOGLITAZONE 45 MG TAB PO SCH (09:18)
[2018-12-17 11:32] LABS: Glucose,Whole Blood 188 mg/dL (75-99)
--- NOTE | 2018-12-17 11:40 | P.PN ---
Subjective Progress Note Date: 12/17/18 Principal diagnosis: Non-ST elevation [place] This is a pleasant 73-year-old gentleman who I follow in the office as an outpatient with a past medical history significant for coronary artery disease and status post coronary artery that is grafting as well as coronary artery stenting, peripheral arterial disease, ischemic cardiomyopathy with EF around 40 -45%, valvular heart disease with known mild aortic stenosis, as well as chronic hypoxic respiratory failure secondary to pulmonary fibrosis presented to the emergency room with syncope. The patient was in his usual state of health where he is on oxygen 24 7 until last few days when he started struggling with nosebleed because of the nasal cannula. Yesterday he was at home when he was walking to his kitchen and suddenly he lost his consciousness. The episode was witnessed by his family. At that point and because was called and the patient was brought to the emergency room. In the ER he was found to have nosebleed and he underwent cauterization and the bleeding was stopped immediately. The hemoglobin continues to be stable. He was receiving dual antiplatelet therapy and continue on them at this point. We get involved in the patient's care because of abnormal cardiac enzymes and troponin was elevated. No EKG changes concerning for ischemia. No symptoms of chest pain or chest discomfort. He does have shortness of breath which is chronic and related to pulmonary fibrosis mainly. The last heart catheterization was performed in May 2018 and that revealed heavily calcified right and left coronary system with occluded right coronary artery, left circumflex, and LAD. The DAVENPORT to LAD was patent but there was diffuse disease in the LAD distal to the DAVENPORT anastomosis. The SVG to left circumflex was occluded as well at that point. Maximize medical treatment was advised. He continues to be on dual antiplatelet therapy, oral nitrates, as well as statin. On follow-up with the patient today, 12/17/2018, the patient remains asymptomatic from a cardiovascular standpoint of view. No chest pain or discomfort and no shortness of breath. From the cardiovascular standpoint of view, the patient can be discharged home. Objective - Vital Signs Vital signs: Vital Signs Temp 97.4 F L 12/17/18 08:00 Pulse 56 L 12/17/18 08:00 Resp 18 12/17/18 08:00 BP 117/57 12/17/18 08:00 Pulse Ox 96 12/17/18 08:00 Intake & Output 12/16/18 12/17/18 12/17/18 18:59 06:59 18:59 Intake Total 600 490 400 Balance 600 490 400 Weight 88.3 kg Intake: IV 10 0.9 10 Oral 600 480 400 Other: Voiding Method Toilet Toilet # Voids 3 # Bowel Movements 1 - Constitutional General appearance: Present: no acute distress - Respiratory Respiratory: bilateral: rales - Cardiovascular Rhythm: regular Heart sounds: normal: S1, S2 - Labs CBC & Chem 7: 12/14/18 13:40 12/15/18 18:01 Labs: Abnormal Lab Results - Last 24 Hours (Table) 12/16/18 12/16/18 12/16/18 Range/Units 11:10 17:19 20:04 POC Glucose (mg/dL) 283 H 118 H 171 H (75-99) mg/dL 12/17/18 12/17/18 Range/Units 06:21 11:31 POC Glucose (mg/dL) 120 H 188 H (75-99) mg/dL Assessment and Plan Assessment: Assessment #1 acute non-ST elevation myocardial infarction, likely type II [place], giving the patient possible hypoxemia related to severe nosebleed and clots in the nose #2 known severe underlying coronary artery disease as described above #3 ischemic cardiomyopathy with known ejection fraction around 40-45% #4 valvular heart disease with known mild aortic stenosis #5 pulmonary fibrosis on oxygen at home #6 multiple comorbid conditions Plan #1 continue the current medical regimen #2 the patient can be discharged home
[2018-12-17] MEDS ORDERED: INSULIN DETEMIR 100 UNIT/ML 10 ML VIAL SQ SCH (21:00)
== END 2018-12-17 13:20 | disposition home or self-care (01) | DRG 281 ==
LOC: EC 12:19 → 3SCARD 15:33
PROVIDERS: ADMIT Internal Medicine; ATTEND Internal Medicine
PROC: 093K7ZZ Control Bleeding in Nasal Mucosa and Soft Tissue, Via Natural or Artificial Opening (ICD-10-PCS; principal; 2018-12-14)
DX: I21.A1 Myocardial infarction type 2 (principal); J96.11 Chronic respiratory failure with hypoxia; E11.51 Type 2 diabetes mellitus with diabetic peripheral angiopathy without gangrene; E78.5 Hyperlipidemia, unspecified; I11.0 Hypertensive heart disease with heart failure; I25.10 Atherosclerotic heart disease of native coronary artery without angina pectoris; I25.2 Old myocardial infarction; I25.5 Ischemic cardiomyopathy; I35.0 Nonrheumatic aortic (valve) stenosis; I44.0 Atrioventricular block, first degree; I50.9 Heart failure, unspecified; J84.112 Idiopathic pulmonary fibrosis; K21.9 Gastro-esophageal reflux disease without esophagitis; R04.0 Epistaxis; Z79.02 Long term (current) use of antithrombotics/antiplatelets; Z79.4 Long term (current) use of insulin; Z79.82 Long term (current) use of aspirin; Z79.899 Other long term (current) drug therapy; Z82.49 Family history of ischemic heart disease and other diseases of the circulatory system; Z83.3 Family history of diabetes mellitus; Z86.718 Personal history of other venous thrombosis and embolism; Z87.891 Personal history of nicotine dependence; Z95.1 Presence of aortocoronary bypass graft; Z95.5 Presence of coronary angioplasty implant and graft; Z99.81 Dependence on supplemental oxygen; Z86.14 Personal history of Methicillin resistant Staphylococcus aureus infection
CPT/HCPCS: 30901; 36415; 71046; 80053; 80061; 81003; 82550; 82553; 83036; 84484; 85025; 85610; 85730; 93005; 93306; 96360; 99285

== ENCOUNTER 2019-02-06 12:56 | Inpatient (IN) | payer MEDICARE, OTHER ==
--- NOTE | 2019-02-06 13:38 | ED ---
General Adult HPI - General Chief complaint: Shortness of Breath Stated complaint: UVALDO Time Seen by Provider: 02/06/19 13:00 Source: patient, RN notes reviewed Mode of arrival: wheelchair Limitations: no limitations - History of Present Illness Initial comments: This is a 74-year-old male who presents emergency Department with bypass surgery and history of pulmonary fibrosis. Patient states he had a heart attack approximate month ago. Patient comes in today because over the last couple of days he's been much more short of breath especially with exertion. Patient states his pulse ox drops into the 70s and then if he rests it comes back up. Patient states she's had no chest pain or palpitations. Patient denies any fever or chills but he does have a cough. Patient states he went his primary medical care doctor they started him on antibiotic yesterday. Patient states he continued to be short of breath today so they recommended he come to the emergency department. Patient denies any lightheadedness or dizziness today he did have one episode the other day when he is trying to make it to the bathroom he became very lightheaded and diaphoretic but had no pain at that time. Patient denies any swelling to the legs or calf tenderness. Patient denies any history of smoking. - Related Data Home Medications Medication Instructions Recorded Confirmed Pioglitazone HCl [Actos] 45 mg PO DAILY 03/16/14 02/06/19 Aspirin EC [Ecotrin Low Dose] 81 mg PO DAILY 03/22/16 02/06/19 Losartan [Cozaar] 12.5 mg PO QAM 05/05/16 02/06/19 metFORMIN HCL [Glucophage] 500 mg PO HS 08/26/16 02/06/19 Clopidogrel [Plavix] 75 mg PO DAILY 05/13/18 02/06/19 Pirfenidone [Esbriet] 801 mg PO TID-W/MEALS 05/13/18 02/06/19 Spironolactone [Aldactone] 25 mg PO DAILY 05/13/18 02/06/19 glyBURIDE [Diabeta] 5 mg PO HS 05/13/18 02/06/19 glyBURIDE [Diabeta] 10 mg PO AC-BRKFST 05/13/18 02/06/19 sitaGLIPtin [Januvia] 100 mg PO DAILY 05/13/18 02/06/19 Ranitidine HCl [Zantac] 150 mg PO DAILY PRN 12/14/18 02/06/19 Amoxicillin 500 mg PO TID 02/06/19 02/06/19 Atorvastatin [Lipitor] 80 mg PO HS 02/06/19 02/06/19 Furosemide [Lasix] 40 mg PO BID 02/06/19 02/06/19 Pantoprazole Sodium [Protonix] 40 mg PO DAILY 02/06/19 02/06/19 Ranolazine [Ranexa] 500 mg PO BID 02/06/19 02/06/19 metFORMIN HCL [Glucophage] 1,000 mg PO QAM 02/06/19 02/06/19 Previous Rx's Medication Instructions Recorded Isosorbide Mononitrate ER [Imdur] 60 mg PO BID #60 tab.er.24h 05/17/18 Metoprolol Tartrate [Lopressor] 25 mg PO BID #60 tab 05/17/18 Nitroglycerin Sl Tabs [Nitrostat] 0.4 mg SUBLINGUAL Q5M PRN #25 tab 05/17/18 Allergies Allergy/AdvReac Type Severity Reaction Status Date / Time No Known Allergies Allergy Verified 02/06/19 13:42 Review of Systems ROS Statement: Those systems with pertinent positive or pertinent negative responses have been documented in the HPI. ROS Other: All systems not noted in ROS Statement are negative. Past Medical History Past Medical History: Heart Failure, Diabetes Mellitus, Deep Vein Thrombosis (DV T), GERD/Reflux, Hyperlipidemia, Hypertension, Myocardial Infarction (VT), Vascular Disorder Additional Past Medical History / Comment(s): Idiopathic pulmonary fibrosis, coronary artery disease with previous bypass surgery,previously documented( - aortic stenosis with a valve area of 1.3 cm), peripheral vascular disease, DVT of the right lower extremity back in 2008, diabetes mellitus, diabetic foot ulcer involving the left great toe, chronic lower extremity edema, chronic hypoxic respiratory failure, previous history of non-ST segment elevation myocardial infarction. upper front dental bridge,per -pt "4 weeks ago pt had blood behind eyes but no stroke" Last Myocardial Infarction Date:: 05/13/2018 History of Any Multi-Drug Resistant Organisms: MRSA Date of last positivie culture/infection: 06/30/16 MDRO Source:: left foot Past Surgical History: Coronary Bypass/CABG, Heart Catheterization, Heart Catheterization With Stent, Hernia Repair, Orthopedic Surgery Additional Past Surgical History / Comment(s): CABG done 1997, all toes on the right foot amputated 04/2010, BILAT CATARACTS ,carotid endartectomy 09/07/2016 ,. 06/16/16 ARTHRECTOMY WITH STENT LEFT FEMORAL ARTERY. nasal cauterization 12-07-18 Past Anesthesia/Blood Transfusion Reactions: No Reported Reaction Additional Past Anesthesia/Blood Transfusion Reaction / Comment(s): has never received any blood transfusions Date of Last Stent Placement:: 08/19/2010 Past Psychological History: No Psychological Hx Reported Smoking Status: Former smoker - Past Family History Father Family Medical History: Cancer Additional Family Medical History / Comment(s): passed from a VT at 63 Mother Family Medical History: Diabetes Mellitus, Myocardial Infarction (VT) Additional Family Medical History / Comment(s): passed from a VT at 63 Sister(s) Family Medical History: Cancer General Exam - General Exam Comments Initial Comments: GENERAL: Patient is well-developed and well-nourished. Patient is nontoxic and well- hydrated and is in mild distress. ENT: Neck is soft and supple. No significant lymphadenopathy is noted. Oropharynx is clear. Moist mucous membranes. Neck has full range of motion without eliciting any pain. . EYES: The sclera were anicteric and conjunctiva were pink and moist. Extraocular movements were intact and pupils were equal round and reactive to light. Eyelids were unremarkable. PULMONARY: Patient has dry crackles diffusely CARDIOVASCULAR: There is a regular rate and rhythm without any murmurs gallops or rubs. ABDOMEN: Soft and nontender with normal bowel sounds. No palpable organomegaly was noted. There is no palpable pulsatile mass. SKIN: Skin is clear with no lesions or rashes and otherwise unremarkable. NEUROLOGIC: Patient is alert and oriented x3. Cranial nerves II through XII are grossly intact. Motor and sensory are also intact. Normal speech, volume and content. Symmetrical smile. MUSCULOSKELETAL: Normal extremities with adequate strength and full range of motion. No lower extremity swelling or edema. No calf tenderness. LYMPHATICS: No significant lymphadenopathy is noted PSYCHIATRIC: Normal psychiatric evaluation. Limitations: no limitations Course Vital Signs 02/06/19 02/06/19 02/06/19 12:58 13:50 14:00 Temperature 97.8 F Pulse Rate 63 65 67 Respiratory 22 Rate Blood Pressure 123/59 130/61 130/61 O2 Sat by Pulse 94 L 99 98 Oximetry 02/06/19 02/06/19 02/06/19 14:10 14:20 14:30 Temperature Pulse Rate 56 L 58 L Respiratory Rate Blood Pressure 130/61 130/61 130/61 O2 Sat by Pulse 98 97 Oximetry 02/06/19 02/06/19 02/06/19 14:40 14:50 15:00 Temperature Pulse Rate 60 59 L 55 L Respiratory Rate Blood Pressure 130/61 130/61 130/61 O2 Sat by Pulse 98 98 98 Oximetry 02/06/19 02/06/19 02/06/19 15:10 15:20 15:30 Temperature Pulse Rate 59 L 55 L Respiratory Rate Blood Pressure 130/61 130/61 130/61 O2 Sat by Pulse 99 99 Oximetry 02/06/19 02/06/19 02/06/19 15:40 15:50 16:00 Temperature Pulse Rate 59 L Respiratory Rate Blood Pressure 130/61 130/61 130/61 O2 Sat by Pulse 99 Oximetry Medical Decision Making - Medical Decision Making EKG shows sinus rhythm at [address] interval 234 QRSs 120 QT intervals 390 QTC is 423 per patient's EKG shows no ST segment elevation or depression or T wave abnormalities are noted. Chest x-ray shows a little pulmonary edema. Patient's d-dimer was elevated so CT of the chest that showed a slight increase of pulmonary edema and pulmonary fibrosis unchanged. No pulmonary embolism. - Lab Data Result diagrams: 02/06/19 13:21 02/06/19 13:21 Lab Results 02/06/19 02/06/19 02/06/19 Range/Units 13:21 13:21 13:21 WBC 9.6 (3.8-10.6) k/uL RBC 4.43 (4.30-5.90) m/uL Hgb 12.6 L (13.0-17.5) gm/dL Hct 39.1 (39.0-53.0) % MCV 88.1 (80.0-100.0) fL MCH 28.4 (25.0-35.0) pg MCHC 32.2 (31.0-37.0) g/dL RDW 14.6 (11.5-15.5) % Plt Count 267 (150-450) k/uL Neutrophils % 73 % Lymphocytes % 14 % Monocytes % 7 % Eosinophils % 4 % Basophils % 1 % Neutrophils # 7.0 (1.3-7.7) k/uL Lymphocytes # 1.4 (1.0-4.8) k/uL Monocytes # 0.6 (0-1.0) k/uL Eosinophils # 0.4 (0-0.7) k/uL Basophils # 0.1 (0-0.2) k/uL PT 10.0 (9.0-12.0) sec INR 0.9 (<1.2) APTT 24.6 (22.0-30.0) sec D-Dimer 0.87 H (<0.60) mg/L FEU Sodium 140 (137-145) mmol/L Potassium 4.7 (3.5-5.1) mmol/L Chloride 105 (98-107) mmol/L Carbon Dioxide 26 (22-30) mmol/L Anion Gap 9 mmol/L BUN 22 H (9-20) mg/dL Creatinine 1.11 (0.66-1.25) mg/dL Est GFR (CKD-EPI)AfAm 77 (>60 ml/min/1.73 sqM) Est GFR (CKD-EPI)NonAf 66 (>60 ml/min/1.73 sqM) Glucose 180 H (74-99) mg/dL Calcium 9.6 (8.4-10.2) mg/dL Magnesium 1.4 L (1.6-2.3) mg/dL Total Bilirubin 0.4 (0.2-1.3) mg/dL AST 15 L (17-59) U/L ALT 26 (21-72) U/L Alkaline Phosphatase 96 (38-126) U/L Troponin I (0.000-0.034) ng/mL NT-Pro-B Natriuret Pep pg/mL Total Protein 6.9 (6.3-8.2) g/dL Albumin 4.0 (3.5-5.0) g/dL 02/06/19 02/06/19 Range/Units 13:21 13:21 WBC (3.8-10.6) k/uL RBC (4.30-5.90) m/uL Hgb (13.0-17.5) gm/dL Hct (39.0-53.0) % MCV (80.0-100.0) fL MCH (25.0-35.0) pg MCHC (31.0-37.0) g/dL RDW (11.5-15.5) % Plt Count (150-450) k/uL Neutrophils % % Lymphocytes % % Monocytes % % Eosinophils % % Basophils % % Neutrophils # (1.3-7.7) k/uL Lymphocytes # (1.0-4.8) k/uL Monocytes # (0-1.0) k/uL Eosinophils # (0-0.7) k/uL Basophils # (0-0.2) k/uL PT (9.0-12.0) sec INR (<1.2) APTT (22.0-30.0) sec D-Dimer (<0.60) mg/L FEU Sodium (137-145) mmol/L Potassium (3.5-5.1) mmol/L Chloride (98-107) mmol/L Carbon Dioxide (22-30) mmol/L Anion Gap mmol/L BUN (9-20) mg/dL Creatinine (0.66-1.25) mg/dL Est GFR (CKD-EPI)AfAm (>60 ml/min/1.73 sqM) Est GFR (CKD-EPI)NonAf (>60 ml/min/1.73 sqM) Glucose (74-99) mg/dL Calcium (8.4-10.2) mg/dL Magnesium (1.6-2.3) mg/dL Total Bilirubin (0.2-1.3) mg/dL AST (17-59) U/L ALT (21-72) U/L Alkaline Phosphatase (38-126) U/L Troponin I <0.012 (0.000-0.034) ng/mL NT-Pro-B Natriuret Pep 2100 pg/mL Total Protein (6.3-8.2) g/dL Albumin (3.5-5.0) g/dL Disposition Clinical Impression: Dyspnea, Pulmonary fibrosis, Pulmonary edema Disposition: ADMITTED IP TO THIS HOSP Referrals: Roque Underwood DO [Primary Care Provider] - 1-2 days Time of Disposition: 16:14
[2019-02-06 14:11] LABS: Basophils # (A) 0.1 k/uL (0-0.2); Basophils % (A) 1 %; Eosinophils # (A) 0.4 k/uL (0-0.7); Eosinophils % (A) 4 %; HCT 39.1 % (39.0-53.0); HGB 12.6 gm/dL (13.0-17.5); Lymphocytes # (A) 1.4 k/uL (1.0-4.8); Lymphocytes % (A) 14 %; MCH 28.4 pg (25.0-35.0); MCHC 32.2 g/dL (31.0-37.0); MCV 88.1 fL (80.0-100.0); Mean Platelet Volume 6.9; Monocytes # (A) 0.6 k/uL (0-1.0); Monocytes % (A) 7 %; Neutrophils % (A) 73 %; Platelet Count 267 k/uL (150-450); RBC 4.43 m/uL (4.30-5.90); RDW 14.6 % (11.5-15.5); WBC 9.6 k/uL (3.8-10.6)
--- NOTE | 2019-02-06 14:18 | XR ---
EXAMINATION TYPE: XR chest 2V DATE OF EXAM: 02/06/2019 COMPARISON: 12/14/2018 HISTORY: Shortness of breath for one day with history of pulmonary fibrosis, CABG, and hypertension TECHNIQUE: Frontal and lateral views of the chest are obtained. FINDINGS: There are low lung volumes with interstitial prominence throughout is seen on the prior co mpatible the patient's history of pulmonary fibrosis. There is also an enlarged cardiomediastinal brandi houette with post CABG changes of the chest. No pneumothorax or pleural effusion is seen. Mild degene rative changes of the thoracic spine are noted. IMPRESSION: Low lung volumes, cardiomegaly, and findings again related to pulmonary fibrosis. Given the pulmonary fibrosis superimposed cardiogenic fluid overload is difficult to exclude.
[2019-02-06 14:20] LABS: Calcium 9.6 mg/dL (8.4-10.2); Magnesium 1.4 mg/dL (1.6-2.3); Potassium 4.7 mmol/L (3.5-5.1); Total Bilirubin 0.4 mg/dL (0.2-1.3); Total Protein 6.9 g/dL (6.3-8.2)
[2019-02-06 14:30] LABS: INR 0.9 (<1.2); Partial Thromboplastin Time 24.6 sec (22.0-30.0)
[2019-02-06 14:35] LABS: D-Dimer 0.87 mg/L FEU (<0.60)
--- NOTE | 2019-02-06 15:57 | CT ---
EXAMINATION TYPE: CT chest angio for PE DATE OF EXAM: 02/06/2019 COMPARISON: 09/04/2018 HISTORY: 74-year-old male with pain, Shortness of breath TECHNIQUE: Contiguous axial scanning of the chest performed with IV Contrast, patient injected with 1 00 mL of Isovue 370. Coronal/sagittal MIP reconstructions performed. CT DLP: 441.2 mGycm Automated exposure control for dose reduction was used. FINDINGS: Heart moderately enlarged. No pericardial effusion. Median sternotomy wires. Coronary vessel calcific ations. Ectatic ascending aorta 3.7 cm with mild atherosclerotic arch calcifications and conventional arch ve ssel branching anatomy. Moderately large caliber to the main right and left pulmonary arteries and 2.6 cm suggesting underlyi ng pulmonary arterial hypertension. There is satisfactory opacification of the pulmonary arterial sys tem: Mild respiratory motion artifacts. Allowing for this limitation, no definite pulmonary embolus i s seen. No flattening of the interventricular septum or reflux of contrast into the hepatic veins. Redemonstrated diffuse peripheral bibasilar groundglass, bibasilar bronchiectasis, and subpleural mihir rocystic change. Groundglass density is similar to slightly worsened from prior exam. Small hiatal hernia. Visualized upper abdomen shows splenic artery calcifications. Bones: Mild degenerative disc disease mid to lower thoracic spine. IMPRESSION: 1. REDEMONSTRATION OF PULMONARY FIBROSIS AND ASSOCIATED BRONCHIECTASIS. EITHER FIBROTIC NSIP OR UIP/I PF. GROUNDGLASS IS OVERALL STABLE TO POSSIBLY MINIMALLY INCREASED FROM 09/04/2018. 2. MILD MOTION ARTIFACT. NO DEFINITE PULMONARY EMBOLUS. 3. MODERATE CARDIOMEGALY AND PULMONARY ARTERIAL HYPERTENSION. PRIOR CABG. 4. SMALL HIATAL HERNIA.
[2019-02-06] MEDS: MAGNESIUM SULFATE-D5W PMX 1 GM in DEXTROSE/WATER 1 100ML.BAG IVPB SCH ×2 (16:00→17:03)
[2019-02-06] MEDS ORDERED: methylPREDNISolone SOD SUCCI 125 MG/2 ML VIAL IV STA (16:10)
[2019-02-06] MEDS ORDERED: IPRATROPIUM-ALBUTEROL 3 ML NEB INHALATION STA (16:10)
[2019-02-06] MEDS ORDERED: methylPREDNISolone SOD SUCCI 125 MG/2 ML VIAL IV SCH (18:00)
[2019-02-06 18:49] VITALS: BMI 59.4
[2019-02-06] MEDS ORDERED: NITROGLYCERIN SL TABS 0.4 MG TAB SUBLINGUAL PRN (19:27)
[2019-02-06] MEDS ORDERED: FAMOTIDINE 20 MG TAB PO PRN (19:27)
--- NOTE | 2019-02-06 19:27 | P.CNPUL ---
History of Present Illness Consult date: 02/06/19 Reason for consult: dyspnea, hypoxemia, pulmonary fibrosis History of present illness: 72-year-old male patient with known history is currently being treated with Esbriet . The patient's chronic hypoxic respiratory failure and is oxygen dependent at 3 L per minute nasal cannula. He has been on this treatment without any major complication. His last evaluation my office was in August 2018. The patient has an FVC of 40% of predicted consistent with severe restrictive lung disease. She also basilar medical problems and comorbidities including coronary artery disease with a recurrent history of non-ST segment elevation myocardial infarction with previous PTCA the saphenous vein graft to acute marginal branch of circumflex. He also has history of ischemic cardiomyopathy with most recent echocardiogram showing ejection fraction 40-45% and he has no AICD. He has peripheral vascular disease. He has history of COPD. He has also history of moderate degree of aortic stenosis with a valve area of 1.3 cm. He has [id number] degree of mitral regurgitation without evidence of any pulmonary hypertension. His last hospitalization was in in November 2018 where he presented with acute non-ST segment elevation myocardial infarction [place] syncope/vasovagal event versus arrhythmias in addition to acute epistaxis requiring cauterization and ENT intervention. He was treated. His hemoglobin has been stabilized. He was seen by cardiology and was cleared for discharge. The patient came into the MRSA department today because of worsening shortness of breath. Apparently his pulse ox was dropping in the low 70s even at rest. H e stated that he had no chest pain or palpitation. He denies having any fever or chills. He had a chronic cough. He went to his primary care physician's office yesterday he was started on antibiotic course. No lightheadedness. No dizziness. No syncope. No swelling in the lower extremities. His white cell count is at 9.6. Hemoglobin is at 12.6. D-dimer was low at 0.87. His creatinine is at 1.1 with a BUN of 22. The troponin is not elevated at 0.012. The proBNP level was 2001 100. The chest x-ray was consistent with pulmonary fibrosis. A CT angiogram of the chest was done which yet again demonstrated severe pulmonary fibrosis with chronic fibrotic changes in the lung bases and t raction bronchiectasis that had possibly increased in severity compared to the previous CAT scan from 09/04/2018. There was moderate cardiomegaly. Prior coronary artery bypass surgery and small hiatal hernia. The patient was admitted to the hospital. The patient is currently on DuoNeb nebulized treatments around the clock. He was started on IV Lasix. He was also started on IV Solu Medrol 60 mg IV push every 6 hours and a pulmonary consultation was requested. Review of Systems Constitutional Constitutional: no fever, no night sweats, no significant weight gain, no significant weight loss, very poor exercise intolerance Eyes Eyes: no dry eyes, no vision change, no irritation ENMT Ears: no difficulty hearing, no ear pain Nose: Previous history of nosebleeds, no nose problems, no sinus problems Mouth/Throat: no sore throat, no bleeding gums, no snoring, no dry mouth, no mouth ulcers, no oral abnormalities, no teeth problems Cardiovascular Cardiovascular: chest pain as discussed above, no arm pain on exertion, no shortness of breath when lying down, no palpitations, no known heart murmur, shortness of breath when walking (claudication), and addition to exertional dyspnea Respiratory Respiratory: no wheezing, no coughing up blood, no sleep apnea, cough, shortness of breath (hypoxic respiratory failure on oxygen at 3 L) Gastrointestinal Gastrointestinal: no abdominal pain, no nausea, no vomiting, no constipation, normal appetite, no diarrhea, not vomiting blood, no dyspepsia, no GERD Genitourinary Genitourinary: no incontinence, no difficulty urinating, no hematuria, no increased frequency Musculoskeletal Musculoskeletal: no muscle aches, no muscle weakness, no arthralgias/joint pain, no back pain, no swelling in the extremities Integumentary Skin: no abnormal mole, no jaundice, no rashes, no laceration Neurologic Neurologic: no loss of consciousness, no weakness, no numbness, no seizures, no dizziness, no migraines, no headaches, no tremor Psychiatric Psych: no depression, no sleep disturbances, feeling safe in a relationship, no alcohol abuse, no anxiety, no hallucinations, no suicidal thoughts Endocrine Endocrine: no fatigue Hematologic/Lymphatic Hematologic/Lymphatic no swollen glands, no bruising, no excessive bleeding Allergic/Immunologic Allergy/Immunologic: no runny nose, no sinus pressure, no itching, no hives, no frequent sneezing Past Medical History Past Medical History: Heart Failure, Diabetes Mellitus, Deep Vein Thrombosis (DVT), GERD/Reflux, Hyperlipidemia, Hypertension, Myocardial Infarction ([place]), Vascular Disorder Additional Past Medical History / Comment(s): Idiopathic pulmonary fibrosis, coronary artery disease with previous bypass surgery along with previous history of non-ST segment elevation myocardial infarction requiring further coronary intervention and stenting of saphenous vein graft to acute marginal of circumflex , previous history of aortic stenosis with a valve area of 1.3 cm), peripheral vascular disease, DVT of the right lower extremity back in 2008, diabetes mellitus, diabetic foot ulcer involving the left great toe, chronic lower extremity edema, chronic hypoxic respiratory failure, previous history of non-ST segment elevation myocardial infarction. upper front dental bridge,per -pt "4 weeks ago pt had blood behind eyes but no stroke" Last Myocardial Infarction Date:: 05/13/2018 History of Any Multi-Drug Resistant Organisms: MRSA Date of last positivie culture/infection: 06/30/16 MDRO Source:: left foot Past Surgical History: Coronary Bypass/CABG, Heart Catheterization, Heart Catheterization With Stent, Hernia Repair, Orthopedic Surgery Additional Past Surgical History / Comment(s): CABG done 1997, cardiac catheterization and stenting of SVG to obtuse marginal branch of circumflex, all toes on the right foot amputated 04/2010, BILAT CATARACTS ,carotid endartectomy 09/07/2016 ,. 06/16/16 ARTHRECTOMY WITH STENT LEFT FEMORAL ARTERY. nasal cauterization 12-07-18 Past Anesthesia/Blood Transfusion Reactions: No Reported Reaction Additional Past Anesthesia/Blood Transfusion Reaction / Comment(s): has never received any blood transfusions Date of Last Stent Placement:: 08/19/2010 Past Psychological History: No Psychological Hx Reported Smoking Status: Former smoker - Past Family History Father Family Medical History: Cancer Additional Family Medical History / Comment(s): passed from a [place] at 63 Mother Family Medical History: Diabetes Mellitus, Myocardial Infarction ([place]) Additional Family Medical History / Comment(s): passed from a [place] at 63 Sister(s) Family Medical History: Cancer Medications and Allergies Home Medications Medication Instructions Recorded Confirmed Type Pioglitazone HCl [Actos] 45 mg PO DAILY 03/16/14 02/06/19 History Aspirin EC [Ecotrin Low Dose] 81 mg PO DAILY 03/22/16 02/06/19 History Losartan [Cozaar] 12.5 mg PO QAM 05/05/16 02/06/19 History metFORMIN HCL [Glucophage] 500 mg PO HS 10/06/16 03/19/19 History Clopidogrel [Plavix] 75 mg PO DAILY 05/13/18 02/06/19 History Pirfenidone [Esbriet] 801 mg PO TID-W/MEALS 05/13/18 02/06/19 History Spironolactone [Aldactone] 25 mg PO DAILY 05/13/18 02/06/19 History glyBURIDE [Diabeta] 5 mg PO HS 05/13/18 02/06/19 History glyBURIDE [Diabeta] 10 mg PO AC-BRKFST 05/13/18 02/06/19 History sitaGLIPtin [Januvia] 100 mg PO DAILY 05/13/18 02/06/19 History Isosorbide Mononitrate ER [Imdur] 60 mg PO BID #60 tab.er.24h 05/17/18 02/06/19 Rx Metoprolol Tartrate [Lopressor] 25 mg PO BID #60 tab 05/17/18 02/06/19 Rx Nitroglycerin Sl Tabs [Nitrostat] 0.4 mg SUBLINGUAL Q5M PRN #25 tab 05/17/18 02/06/19 Rx Ranitidine HCl [Zantac] 150 mg PO DAILY PRN 12/14/18 02/06/19 History Amoxicillin 500 mg PO TID 02/06/19 02/06/19 History Atorvastatin [Lipitor] 80 mg PO HS 02/06/19 02/06/19 History Furosemide [Lasix] 40 mg PO BID 02/06/19 02/06/19 History Pantoprazole Sodium [Protonix] 40 mg PO DAILY 02/06/19 02/06/19 History Ranolazine [Ranexa] 500 mg PO BID 02/06/19 02/06/19 History metFORMIN HCL [Glucophage] 1,000 mg PO QAM 02/06/19 02/06/19 History Allergies Allergy/AdvReac Type Severity Reaction Status Date / Time No Known Allergies Allergy Verified 02/06/19 13:42 Physical Exam Vitals: Vital Signs Temp Pulse Resp BP Pulse Ox 02/06/19 17:35 58 L 02/06/19 17:29 60 02/06/19 16:00 59 L 130/61 99 02/06/19 15:50 130/61 02/06/19 15:40 130/61 02/06/19 15:30 130/61 02/06/19 15:20 55 L 130/61 99 02/06/19 15:10 59 L 130/61 99 02/06/19 15:00 55 L 130/61 98 02/06/19 14:50 59 L 130/61 98 02/06/19 14:40 60 130/61 98 02/06/19 14:30 58 L 130/61 97 02/06/19 14:20 56 L 130/61 98 02/06/19 14:10 130/61 02/06/19 14:00 67 130/61 98 02/06/19 13:50 65 130/61 99 02/06/19 12:58 97.8 F 63 22 123/59 94 L Intake and Output 02/06/19 02/06/19 02/06/19 06:59 14:59 22:59 Intake Total 150 Balance 150 Intake: Amount of Fluid Infused ( 150 ml) Other: Weight 86.183 kg General Appearance no diaphoresis, no respiratory distress, speech not interrupted by breaths, no dyspnea, no pallor, not cachectic, well nourished, appears well (calm and comfortable Head exam was generally normal. There was no scleral icterus or corneal arcus. Mucous membranes were moist. Neck was supple and without jugular venous distension, thyromegaly, or carotid bruits. Carotids were easily palpable bilaterally. There was no adenopathy. Chest no barrel chest, no retractions, no sternocleidomastoid muscle contractions, no supraclavicular retractions, no intercostal retractions, no prolonged expiratory wheezing, no decreased air movement, no rhonchi, no hyperinflation, decreased air movement, adventitious sounds: rales / crackles: bilaterally: midlung montes (coarse crackles in the lung bases bilaterally) Heart no right ventricular heave, no distant heart sounds, no s3 gallop ( he has a thoracotomy scar which is dry clean and intact.) And there is a systolic ejection grade 3 murmur, over the left lateral sternal border GI bowel sounds: hyperactive (borborygmi), bowel sounds: diminished or absent Extremities no cyanosis, no clubbing, no edema Neurologic no decreased mental status, no somnolence, no confusion, alert and aw martin and there is no focal logical deficits. Examination of the skin revealed no evidence of significant rashes, suspicious appearing nevi or other concerning lesions. Results - Laboratory Findings CBC and BMP: 02/06/19 13:21 02/06/19 13:21 PT/INR, D-dimer PT 10.0 sec (9.0-12.0) 02/06/19 13:21 INR 0.9 (<1.2) 02/06/19 13:21 D-Dimer 0.87 mg/L FEU (<0.60) H 02/06/19 13:21 Abnormal lab findings: Abnormal Labs 02/06/19 02/06/19 02/06/19 13:21 13:21 13:21 Hgb 12.6 L D-Dimer 0.87 H BUN 22 H Glucose 180 H Magnesium 1.4 L AST 15 L - Diagnostic Findings Chest x-ray: image reviewed CT scan - chest: image reviewed Assessment and Plan Plan: Assessment 1 acute on chronic dyspnea/hypoxemia currently under investigation. Computed tomography scan of the chest that was done, CT angiogram, showed dose any pulmonary embolism. There is some interval worsening of the supportive fibrosis and the patient has chronic IPF and traction bronchiectasis. No evidence of any superimposed pneumonia or pulmonary embolism. 2 coronary artery disease with previous non-ST segment elevation myocardial infarction and previous cardiac catheterization and stenting of the SVG to obtuse marginal branch of circumflex. The patient undergone previous bypass surgery in 1997. [place] to LAD was patent based on the most recent cardiac catheterization 3 chronic hypoxic respiratory failure maintained on oxygen at 3 L per minute nasal cannula 4 coronary artery disease with previous bypass surgery 5 moderately severe aortic stenosis with a valve area of 1.3 cm based on echocardiogram from 2016 6 diabetes mellitus 7 peripheral Vascular disease with previous vascular intervention and stenting of the right lower extremity 8 carotid artery disease with previous and arthrectomy 9 remote history of DVT of the lower extremity, 2008 10 hyperlipidemia 11 hypertension 12 ischemic cardiomyopathy with an ejection fraction of 40-45% and known history of mild to moderate aortic stenosis 13 previous history of epistaxis Plan Patient is back to his baseline. This continued IV Solu-Medrol and put the patient on a short course of prednisone burst taper. We'll start with 30 mg as part of the burst taper. This continued IV Lasix. Put the patient on oral Lasix 40 mg by mouth daily. Monitor his progress over the next 24 hours. Oxygenation is improved and the patient is back to 3 L of oxygen nasal cannula. Resume outpatient medications. We'll follow.
[2019-02-06] MEDS ORDERED: SALINE NASAL GEL 14.1 GM TUBE TOPICAL PRN (19:29)
[2019-02-06 20:32] LABS: Glucose,Whole Blood 275 mg/dL (75-99)
[2019-02-06] MEDS: IPRATROPIUM-ALBUTEROL 3 ML NEB INHALATION SCH (20:33)
[2019-02-06] MEDS ORDERED: ATORVASTATIN 80 MG TAB PO SCH (21:00)
[2019-02-06] MEDS ORDERED: metFORMIN 500 MG TAB PO SCH (21:00)
[2019-02-06] MEDS ORDERED: INSULIN ASPART (NovoLOG) 100 UNIT/ML VIAL SQ SCH (21:00)
[2019-02-06] MEDS ORDERED: glipiZIDE 10 MG TAB PO SCH (21:00)
[2019-02-06] MEDS: AMOXIC-POT CLAV 875-125MG 1 EACH TAB PO SCH (21:16)
[2019-02-06] MEDS: FUROSEMIDE 40 MG TAB PO SCH (21:17)
[2019-02-06] MEDS: RANOLAZINE 500 MG TAB.ER.12H PO SCH (21:17)
[2019-02-06] MEDS: METOPROLOL TARTRATE 25 MG TAB PO SCH (21:17)
[2019-02-06] MEDS: ISOSORBIDE MONONITRATE ER 60 MG TAB.ER.24H PO SCH (21:17)
--- NOTE | 2019-02-06 21:29 | P.HPIM ---
History of Present Illness H&P Date: 02/06/19 Chief Complaint: Shortness of breath Patient is a 80-year-old male with a known history of Idiopathic pulmonary fibrosis, coronary artery disease with previous bypass surgery,previously documented( - aortic stenosis with a valve area of 1.3 cm), peripheral vascular disease, DVT of the right lower extremity back in 2008, diabetes mellitus, diabetic foot ulcer involving the left great toe, chronic lower extremity edema, chronic hypoxic respiratory failure, previous history of non-ST segment elevation myocardial infarction. upper front dental bridge,per -pt "4 weeks ago pt had blood behind eyes but no stroke" came to ER with complaints of shortness of breath worsening for the past 2 days. Patient does have cough without sputum production. No fever no chills. Patient also having exertional short of breath and pulse ox is dropping down to 78% at home. Patient went to his primary care patient was started on antibiotics as today. Patient continues to have short of breath and came to ER for further management. Patient otherwise denied any fever or chills. No chest pain. Denied any leg swelling. No headache or dizziness or lightheadedness. Chest x-ray showed low lung volumes, cardiac megaly, and findings again related to pulmonary fibrosis. Given the pulmonary fibrosis superimposed cardiogenic fluid overload is difficult to exclude. BNP 2100 Medications 1.4 D-dim[address] 0[address] angios the chest showed redemonstration of pulmonary fibrosis and associated bronchiectasis. either fibrotic NSIP or IUP/UIP. groundglass is overall stable to possibly minimal increased from 09/04/2018. Mild motion artifact. No different pulmonary embolism. Moderate cardiomegaly and pulmonary arterial hypertension. Prior CABG. Small hiatal hernia Review of Systems Constitutional: Patient denies any fever or chills . No generalized weakness or weight loss. Abdomen: Patient denied nausea vomiting and diarrhea and abdominal pain. Cardiovascular: Patient denies any chest pain or short of breath no palpitations. Respiratory: Does have cough without sputum production. Patient does have shortness of breath and hypoxia at home Neurologic: Patient denied any numbness or tingling headache. Musculoskeletal: Patient denies any complaints of joint swelling or deformity. Skin: Negative Psychiatric: Negative Endocrine: No heat or cold intolerance. No recent weight gain. Genitourinary: No dysuria or hematuria. All other 14 point ROS negative except the above Past Medical History Past Medical History: Heart Failure, Diabetes Mellitus, Deep Vein Thrombosis (DVT), GERD/Reflux, Hyperlipidemia, Hypertension, Myocardial Infarction ([place]), Vascular Disorder Additional Past Medical History / Comment(s): Idiopathic pulmonary fibrosis, coronary artery disease with previous bypass surgery,previously documented( - aortic stenosis with a valve area of 1.3 cm), peripheral vascular disease, DVT of the right lower extremity back in 2008, diabetes mellitus, diabetic foot ulcer involving the left great toe, chronic lower extremity edema, chronic hypoxic respiratory failure, previous history of non-ST segment elevation myocardial infarction. upper front dental bridge,per -pt "4 weeks ago pt had blood behind eyes but no stroke" Last Myocardial Infarction Date:: 05/13/2018 History of Any Multi-Drug Resistant Organisms: MRSA Date of last positivie culture/infection: 06/30/16 MDRO Source:: left foot Past Surgical History: Coronary Bypass/CABG, Heart Catheterization, Heart Catheterization With Stent, Hernia Repair, Orthopedic Surgery Additional Past Surgical History / Comment(s): CABG done 1997, all toes on the right foot amputated 04/2010, BILAT CATARACTS ,carotid endartectomy 09/07/2016 ,. 06/16/16 ARTHRECTOMY WITH STENT LEFT FEMORAL ARTERY. nasal cauterization 12-07-18 Past Anesthesia/Blood Transfusion Reactions: No Reported Reaction Additional Past Anesthesia/Blood Transfusion Reaction / Comment(s): has never received any blood transfusions Date of Last Stent Placement:: 08/19/2010 Past Psychological History: No Psychological Hx Reported Smoking Status: Former smoker - Past Family History Father Family Medical History: Cancer Additional Family Medical History / Comment(s): passed from a [place] at 63 Mother Family Medical History: Diabetes Mellitus, Myocardial Infarction ([place]) Additional Family Medical History / Comment(s): passed from a [place] at 63 Sister(s) Family Medical History: Cancer Medications and Allergies Home Medications Medication Instructions Recorded Confirmed Type Pioglitazone HCl [Actos] 45 mg PO DAILY 03/16/14 02/06/19 History Aspirin EC [Ecotrin Low Dose] 81 mg PO DAILY 03/22/16 02/06/19 History Losartan [Cozaar] 12.5 mg PO QAM 05/05/16 02/06/19 History metFORMIN HCL [Glucophage] 500 mg PO HS 08/26/16 02/06/19 History Clopidogrel [Plavix] 75 mg PO DAILY 05/13/18 02/06/19 History Pirfenidone [Esbriet] 801 mg PO TID-W/MEALS 05/13/18 02/06/19 History Spironolactone [Aldactone] 25 mg PO DAILY 05/13/18 02/06/19 History glyBURIDE [Diabeta] 5 mg PO HS 05/13/18 02/06/19 History glyBURIDE [Diabeta] 10 mg PO AC-BRKFST 05/13/18 02/06/19 History sitaGLIPtin [Januvia] 100 mg PO DAILY 05/13/18 02/06/19 History Isosorbide Mononitrate ER [Imdur] 60 mg PO BID #60 tab.er.24h 05/17/18 02/06/19 Rx Metoprolol Tartrate [Lopressor] 25 mg PO BID #60 tab 05/17/18 02/06/19 Rx Nitroglycerin Sl Tabs [Nitrostat] 0.4 mg SUBLINGUAL Q5M PRN #25 tab 05/17/18 02/06/19 Rx Ranitidine HCl [Zantac] 150 mg PO DAILY PRN 12/14/18 02/06/19 History Amoxicillin 500 mg PO TID 02/06/19 02/06/19 History Atorvastatin [Lipitor] 80 mg PO HS 02/06/19 02/06/19 History Furosemide [Lasix] 40 mg PO BID 02/06/19 02/06/19 History Pantoprazole Sodium [Protonix] 40 mg PO DAILY 02/06/19 02/06/19 History Ranolazine [Ranexa] 500 mg PO BID 02/06/19 02/06/19 History metFORMIN HCL [Glucophage] 1,000 mg PO QAM 02/06/19 02/06/19 History Allergies Allergy/AdvReac Type Severity Reaction Status Date / Time No Known Allergies Allergy Verified 02/06/19 13:42 Physical Exam Vitals: Vital Signs Temp Pulse Resp BP Pulse Ox 02/06/19 12:58 97.8 F 63 22 123/59 94 L Intake and Output 02/06/19 02/06/19 02/06/19 06:59 14:59 22:59 Other: Weight 86.183 kg PHYSICAL EXAMINATION: Patient is lying in the bed comfortably, no acute distress, awake alert and oriented.. HEENT: Normocephalic. Neck is supple. Pupils reactive. Nostrils clear. Oral cavity is moist. Ears reveal no drainage. Neck reveals no JVD, carotid bruits, or thyromegaly. CHEST EXAMINATION: Trachea is central. Symmetrical expansion. Bibasilar fine crackles. No rhonchi. Minimal wheezing.. CARDIAC: Normal S1, S2 with no gallops. No murmurs ABDOMEN: Soft. Bowel sounds normal. No organomegaly. No abdominal bruits. Extremities: reveal no edema. No clubbing or cyanosis Neurologically awake, alert, oriented x3 with well-coordinated movements. No focal deficits noted Skin: No rash or skin lesions. Psychiatric: Coperative. Nonsuicidal Musculoskeletal: No joint swelling or deformity. Normal range of motion. Results CBC & Chem 7: 02/06/19 13:21 02/06/19 13:21 Labs: Abnormal Lab Results - Last 24 Hours (Table) 02/06/19 02/06/19 02/06/19 Range/Units 13:21 13:21 13:21 Hgb 12.6 L (13.0-17.5) gm/dL D-Dimer 0.87 H (<0.60) mg/L FEU BUN 22 H (9-20) mg/dL Glucose 180 H (74-99) mg/dL Magnesium 1.4 L (1.6-2.3) mg/dL AST 15 L (17-59) U/L Thrombosis Risk Factor Assmnt - DVT/VTE Prophylaxis DVT/VTE Prophylaxis: Pharmacologic Prophylaxis ordered Assessment and Plan Assessment: Acute on chronic hypoxemic respiratory failure due to underlying pulmonary fibrosis. No evidence of pneumonia or PE on CT angiogram of chest. Idiopathic Pulmonary fibrosis Chronic hypoxic respiratory failure on home oxygen Coronary artery disease with history of CABG in 1997 History of [place] Ischemic cardio myopathy/CHF chronic with systolic dysfunction ejection fraction 40-45% Moderate to severe aortic stenosis Diabetes type 2 [id number] Peripheral vascular disease with stenting of the right lower extremity History of hysterectomy with stent to left femoral artery. Previous history of DVT in 2008 Hypertension Recent history of epistaxis, nausea and cauterization on 12/07/2018 History of diabetic foot ulcer involving the left great toe DVT prophylaxis with heparin subcu Plan: Patient is being continued on DuoNeb's. Patient was given a dose of IV Solu- Medrol in the ER. Patient is being continued on Lasix 40 mg twice a day. Pulmonary is following. Continue with home medications and insulin sliding scale. Follow up closely. Continue the oxygen therapy and gradually titrated down to his home oxygen requirement of 3 L/m. Further recommendations based on clinical course. Prognosis is guarded with multiple medical problems and comorbid conditions. Time with Patient: Greater than 30
[2019-02-06] MEDS ORDERED: INSULIN ASPART (NovoLOG) 100 UNIT/ML VIAL SQ ONE (21:55)
[2019-02-06] MEDS: HEPARIN SODIUM,PORCINE 5,000 UNIT/ML 1 ML VIAL SQ SCH (23:00)
[2019-02-07] MEDS ORDERED: FUROSEMIDE 10 MG/ML 10 ML VIAL IV SCH
[2019-02-07 06:04] LABS: Glucose,Whole Blood 391 mg/dL (75-99)
[2019-02-07] MEDS: INSULIN ASPART (NovoLOG) 100 UNIT/ML VIAL SQ SCH ×2 (06:46→12:19)
[2019-02-07] MEDS: Pirfenidone [Esbriet] 801 MG PO SCH ×2 (06:46→12:20)
[2019-02-07] MEDS: IPRATROPIUM-ALBUTEROL 3 ML NEB INHALATION SCH ×3 (07:30→15:50)
[2019-02-07] MEDS ORDERED: PANTOPRAZOLE 40 MG TABLET PO SCH (07:30)
[2019-02-07] MEDS ORDERED: glipiZIDE 10 MG TAB PO SCH (07:30)
[2019-02-07] MEDS: HEPARIN SODIUM,PORCINE 5,000 UNIT/ML 1 ML VIAL SQ SCH (08:30)
[2019-02-07] MEDS: METOPROLOL TARTRATE 25 MG TAB PO SCH (08:30)
[2019-02-07] MEDS: RANOLAZINE 500 MG TAB.ER.12H PO SCH (08:30)
[2019-02-07] MEDS: AMOXIC-POT CLAV 875-125MG 1 EACH TAB PO SCH (08:30)
[2019-02-07] MEDS: FUROSEMIDE 40 MG TAB PO SCH (08:31)
[2019-02-07] MEDS: ISOSORBIDE MONONITRATE ER 60 MG TAB.ER.24H PO SCH (08:32)
[2019-02-07 08:45] VITALS: RESP 20; TEMP 98.2
[2019-02-07] MEDS ORDERED: SPIRONOLACTONE 25 MG TAB PO SCH (09:00)
[2019-02-07] MEDS ORDERED: PIOGLITAZONE 45 MG TAB PO SCH (09:00)
[2019-02-07] MEDS ORDERED: LINAGLIPTIN 5 MG TABLET PO SCH (09:00)
[2019-02-07] MEDS ORDERED: LOSARTAN 25 MG TAB PO SCH (09:00)
[2019-02-07] MEDS ORDERED: ASPIRIN 81 MG PO SCH (09:00)
[2019-02-07] MEDS ORDERED: metFORMIN 500 MG TAB PO SCH (09:00)
[2019-02-07] MEDS ORDERED: CLOPIDOGREL 75 MG TAB PO SCH (09:00)
[2019-02-07 11:45] LABS: Glucose,Whole Blood 436 mg/dL (75-99)
--- NOTE | 2019-02-07 13:39 | P.PN ---
Subjective Progress Note Date: 02/07/19 Principal diagnosis: Acute on chronic dyspnea/hypoxemia secondary to chronic IPF and bronchiectasis. 72-year-old male patient with known history is currently being treated with Es briet . The patient's chronic hypoxic respiratory failure and is oxygen dependent at 3 L per minute nasal cannula. He has been on this treatment without any major complication. His last evaluation my office was in August 2018. The patient has an FVC of 40% of predicted consistent with severe re strictive lung disease. She also basilar medical problems and comorbidities including coronary artery disease with a recurrent history of non-ST segment elevation myocardial infarction with previous PTCA the saphenous vein graft to acute marginal branch of circumflex. He also has history of ischemic cardiomyopathy with most recent echocardiogram showing ejection fraction 40-45% and he has no AICD. He has peripheral vascular disease. He has history of COPD. He has also history of moderate degree of aortic stenosis with a valve area of 1.3 cm. He has [id number] degree of mitral regurgitation without evidence of any pulmonary hypertension. His last hospitalization was in in November 2018 where he presented with acute non-ST segment elevation myocardial infarction [place] syncope/vasovagal event versus arrhythmias in addition to acute epistaxis requiring cauterization and ENT intervention. He was treated. His hemoglobin has been stabilized. He was seen by cardiology and was cleared for discharge. The patient came into the MRSA department today because of worsening shortness of breath. Apparently his pulse ox was dropping in the low 70s even at rest. He stated that he had no chest pain or palpitation. He denies having any fever or chills. He had a chronic cough. He went to his primary care physician's office yesterday he was started on antibiotic course. No lightheadedness. No dizziness. No syncope. No swelling in the lower extremities. His white cell count is at 9.6. Hemoglobin is at 12.6. D-dimer was low at 0.87. His creatinine is at 1.1 with a BUN of 22. The troponin is not elevated at 0.012. The proBNP level was 2001 100. The chest x-ray was consistent with pulmonary fibrosis. A CT angiogram of the chest was done which yet again demonstrated severe pulmonary fibrosis with chronic fibrotic changes in the lung bases and traction bronchiectasis that had possibly increased in severity compared to the previous CAT scan from 09/04/2018. There was moderate cardiomegaly. Prior coronary artery bypass surgery and small hiatal hernia. The patient was admitted to the hospital. The patient is currently on DuoNeb nebulized treatments around the clock. He was started on IV Lasix. He was also started on IV Solu Medrol 60 mg IV push every 6 hours and a pulmonary consultation was requested. The patient is seen today 02/07/2019 in follow-up on the selective care unit. He is currently awake and alert in no acute distress. Maintaining good O2 saturations in the mid 90s on 4 L/m per nasal cannula. He's been afebrile. He is currently on Augmentin, bronchodilators, diuretics. Objective - Vital Signs Vital signs: Vital Signs Temp 98.2 F 02/07/19 08:00 Pulse 76 02/07/19 11:49 Resp 20 02/07/19 08:00 BP 128/61 02/07/19 08:00 Pulse Ox 95 02/07/19 08:00 Intake & Output 02/06/19 02/07/19 02/07/19 18:59 06:59 18:59 Intake Total 150 240 Balance 150 240 Weight 86.183 kg 87 kg Intake: Amount of Fluid Infused ( 150 ml) Oral 240 Other: Voiding Method Urinal # Voids 2 - Exam GENERAL EXAM: Alert, active, comfortable in no apparent distress. On 4 L nasal cannula HEAD: Normocephalic. EYES: Normal reaction of pupils, equal size. NOSE: Clear with pink turbinates. THROAT: No erythema or exudates. NECK: No masses, no JVD. CHEST: No chest wall deformity. LUNGS: Equal air entry with echoes in the bilateral posterior bases. CVS: S1 and S2 normal with no audible murmur, regular rhythm. ABDOMEN: No hepatosplenomegaly, normal bowel sounds, no guarding or rigidity. SPINE: No scoliosis or deformity SKIN: No rashes CENTRAL NERVOUS SYSTEM: No focal deficits, tone is normal in all 4 extremities. EXTREMITIES: There is no peripheral edema. No clubbing, no cyanosis. Peripheral pulses are intact. - Labs CBC & Chem 7: 02/06/19 13:21 02/06/19 13:21 Labs: Abnormal Lab Results - Last 24 Hours (Table) 02/06/19 02/06/19 02/06/19 Range/Units 13:21 13:21 13:21 Hgb 12.6 L (13.0-17.5) gm/dL D-Dimer 0.87 H (<0.60) mg/L FEU BUN 22 H (9-20) mg/dL Glucose 180 H (74-99) mg/dL POC Glucose (mg/dL) (75-99) mg/dL Magnesium 1.4 L (1.6-2.3) mg/dL AST 15 L (17-59) U/L 02/06/19 02/07/19 02/07/19 Range/Units 20:30 06:03 11:19 Hgb (13.0-17.5) gm/dL D-Dimer (<0.60) mg/L FEU BUN (9-20) mg/dL Glucose (74-99) mg/dL POC Glucose (mg/dL) 275 H 391 H 436 H (75-99) mg/dL Magnesium (1.6-2.3) mg/dL AST (17-59) U/L Assessment and Plan Assessment: Assessment 1 acute on chronic dyspnea/hypoxemia currently under investigation. Computed tomography scan of the chest that was done, CT angiogram, showed dose any pulmonary embolism. There is some interval worsening of the supportive fibrosis and the patient has chronic IPF and traction bronchiectasis. No evidence of any superimposed pneumonia or pulmonary embolism. 2 coronary artery disease with previous non-ST segment elevation myocardial infarction and previous cardiac catheterization and stenting of the SVG to obtuse marginal branch of circumflex. The patient undergone previous bypass surgery in 1997. [place] to LAD was patent based on the most recent cardiac catheterization 3 chronic hypoxic respiratory failure maintained on oxygen at 3 L per minute nasal cannula 4 coronary artery disease with previous bypass surgery 5 moderately severe aortic stenosis with a valve area of 1.3 cm based on echocardiogram from 2016 6 diabetes mellitus 7 peripheral Vascular disease with previous vascular intervention and stenting of the right lower extremity 8 carotid artery disease with previous and arthrectomy 9 remote history of DVT of the lower extremity, 2008 10 hyperlipidemia 11 hypertension 12 ischemic cardiomyopathy with an ejection fraction of 40-45% and known history of mild to moderate aortic stenosis 13 previous history of epistaxis Plan The patient was seen and evaluated by Dr. Rojo. He is currently stable from the pulmonary standpoint. Complete a prednisone taper. He is cleared for discharge. Follow up with him in the office in 1-2 weeks' time. I, the cosigning physician, performed a history & physical examination of the patient. Lungs sounds are clear. Maintaining good O2 saturations in the 90s on room air. I discussed the assessment and plan of care with my nurse practitioner, Sheila James. I attest to the above note as dictated by her.
[2019-02-07 15:01] VITALS: BP 100/55
[2019-02-07 15:52] VITALS: PULSE 68
[2019-02-07] MEDS ORDERED: predniSONE 20 MG TAB PO SCH (16:30)
[2019-02-07 16:49] LABS: Glucose,Whole Blood 180 mg/dL (75-99)
== END 2019-02-07 17:13 | disposition home or self-care (01) | DRG 196 ==
LOC: EC 12:56 → 3SCARD 16:17
PROVIDERS: ADMIT Internal Medicine; ATTEND Internal Medicine
DX: J84.112 Idiopathic pulmonary fibrosis (principal); J96.21 Acute and chronic respiratory failure with hypoxia; I50.22 Chronic systolic (congestive) heart failure; E11.51 Type 2 diabetes mellitus with diabetic peripheral angiopathy without gangrene; E78.5 Hyperlipidemia, unspecified; I08.0 Rheumatic disorders of both mitral and aortic valves; I11.0 Hypertensive heart disease with heart failure; I25.10 Atherosclerotic heart disease of native coronary artery without angina pectoris; I25.2 Old myocardial infarction; I25.5 Ischemic cardiomyopathy; I27.21 Secondary pulmonary arterial hypertension; J44.9 Chronic obstructive pulmonary disease, unspecified; K21.9 Gastro-esophageal reflux disease without esophagitis; K44.9 Diaphragmatic hernia without obstruction or gangrene; Z79.02 Long term (current) use of antithrombotics/antiplatelets; Z79.4 Long term (current) use of insulin; Z79.82 Long term (current) use of aspirin; Z79.899 Other long term (current) drug therapy; Z82.49 Family history of ischemic heart disease and other diseases of the circulatory system; Z83.3 Family history of diabetes mellitus; Z86.718 Personal history of other venous thrombosis and embolism; Z87.891 Personal history of nicotine dependence; Z95.1 Presence of aortocoronary bypass graft; Z95.5 Presence of coronary angioplasty implant and graft; Z99.81 Dependence on supplemental oxygen; Z89.421 Acquired absence of other right toe(s); Z98.42 Cataract extraction status, left eye; Z98.41 Cataract extraction status, right eye
CPT/HCPCS: 36415; 71046; 71275; 80053; 83735; 83880; 84484; 85025; 85379; 85610; 85730; 87040; 93005; 94640; 96365; 96375; 99285

== ENCOUNTER 2019-02-24 15:03 | Emergency (ER) | payer MEDICARE, OTHER ==
[2019-02-24 15:08] VITALS: RESP 18; TEMP 98.4
[2019-02-24] MEDS ORDERED: SODIUM CHLORIDE 0.9% 500 ML 500 ML IV ONE (15:35)
[2019-02-24] MEDS ORDERED: SILVER NITRATE APPLICATOR 1 EACH STICK..EA. TOPICAL STA (15:42)
--- NOTE | 2019-02-24 15:43 | ED ---
General Adult HPI - General Chief complaint: ENT Stated complaint: Nose bleed Time Seen by Provider: 02/24/19 15:20 Source: patient, family, RN notes reviewed, old records reviewed Mode of arrival: wheelchair Limitations: no limitations - History of Present Illness Initial comments: Chief complaint and history of present illness this is a 74-year-old male here with family. The patient reports she's had epistaxis that started approximately 8 this morning. Patient has a past history of recurrent epistaxis, most likely due to chronic nasal oh to use for his pulmonary fibrosis. No other complaints. - Related Data Home Medications Medication Instructions Recorded Confirmed Pioglitazone HCl [Actos] 45 mg PO DAILY 03/16/14 02/06/19 Aspirin EC [Ecotrin Low Dose] 81 mg PO DAILY 03/22/16 02/06/19 Losartan [Cozaar] 12.5 mg PO QAM 05/05/16 02/06/19 metFORMIN HCL [Glucophage] 500 mg PO HS 08/26/16 02/06/19 Clopidogrel [Plavix] 75 mg PO DAILY 05/13/18 02/06/19 Pirfenidone [Esbriet] 801 mg PO TID-W/MEALS 05/13/18 02/06/19 Spironolactone [Aldactone] 25 mg PO DAILY 05/13/18 02/06/19 glyBURIDE [Diabeta] 5 mg PO HS 05/13/18 02/06/19 glyBURIDE [Diabeta] 10 mg PO AC-BRKFST 05/13/18 02/06/19 sitaGLIPtin [Januvia] 100 mg PO DAILY 05/13/18 02/06/19 Ranitidine HCl [Zantac] 150 mg PO DAILY PRN 12/14/18 02/06/19 Atorvastatin [Lipitor] 80 mg PO HS 02/06/19 02/06/19 Furosemide [Lasix] 40 mg PO BID 02/06/19 02/06/19 Pantoprazole Sodium [Protonix] 40 mg PO DAILY 02/06/19 02/06/19 Ranolazine [Ranexa] 500 mg PO BID 02/06/19 02/06/19 metFORMIN HCL [Glucophage] 1,000 mg PO QAM 02/06/19 02/06/19 Previous Rx's Medication Instructions Recorded Isosorbide Mononitrate ER [Imdur] 60 mg PO BID #60 tab.er.24h 05/17/18 Metoprolol Tartrate [Lopressor] 25 mg PO BID #60 tab 05/17/18 Nitroglycerin Sl Tabs [Nitrostat] 0.4 mg SUBLINGUAL Q5M PRN #25 tab 05/17/18 Amoxic-Pot Clav 875-125Mg 1 each PO Q12HR 7 Days #14 tab 02/07/19 [Augmentin 875-125] predniSONE See Taper PO DIRECTED #26 tab 02/07/19 Allergies Allergy/AdvReac Type Severity Reaction Status Date / Time No Known Allergies Allergy Verified 02/24/19 15:08 Review of Systems ROS Statement: Those systems with pertinent positive or pertinent negative responses have been documented in the HPI. Review of systems no headache or visual acuity changes deniespain but he does have epistaxis currently controlled. Patient is on 4 L of nasal oxygen for pulmonary fibrosis. No chest pain shortness breath GI/ problems no complaint of any neuro deficits. He states he has swallowed some blood made him feel nauseated earlier. All systems are reviewed. Past medical problems significant for insulin-dependent diabetes mellitus, DVT, GERD, hypertension and hyperlipidemia. Patient reports having had 3 possibly for MIs in the past. Also idiopathic pulmonary fibrosis. The patient's surgeries include coronary bypass several heart catheterizations and hernia repair. He had his right forefoot amputated secondary to diabetes. Family history significant for one sister with colon cancer mother with uterine cancer. The patient was told he needs to have colonoscopies reexamination for blood in the stool which she is doing with his family physician. ROS Other: All systems not noted in ROS Statement are negative. Past Medical History Past Medical History: Heart Failure, Diabetes Mellitus, Deep Vein Thrombosis (DVT), GERD/Reflux, Hyperlipidemia, Hypertension, Myocardial Infarction (SC), Vascular Disorder Additional Past Medical History / Comment(s): Idiopathic pulmonary fibrosis, coronary artery disease with previous bypass surgery,previously documented( - aortic stenosis with a valve area of 1.3 cm), peripheral vascular disease, DVT of the right lower extremity back in 2008, diabetes mellitus, diabetic foot ulcer involving the left great toe, chronic lower extremity edema, chronic hypoxic respiratory failure, previous history of non-ST segment elevation myocardial infarction. upper front dental bridge,per -pt "4 weeks ago pt had blood behind eyes but no stroke" Last Myocardial Infarction Date:: 05/13/2018 History of Any Multi-Drug Resistant Organisms: MRSA Date of last positivie culture/infection: 06/30/16 MDRO Source:: left foot Past Surgical History: Coronary Bypass/CABG, Heart Catheterization, Heart Catheterization With Stent, Hernia Repair, Orthopedic Surgery Additional Past Surgical History / Comment(s): CABG done 1997, all toes on the right foot amputated 04/2010, BILAT CATARACTS ,carotid endartectomy 09/07/2016 ,. 06/16/16 ARTHRECTOMY WITH STENT LEFT FEMORAL ARTERY. nasal cauterization 12-07-18 Past Anesthesia/Blood Transfusion Reactions: No Reported Reaction Additional Past Anesthesia/Blood Transfusion Reaction / Comment(s): has never received any blood transfusions Date of Last Stent Placement:: 08/19/2010 Past Psychological History: No Psychological Hx Reported Smoking Status: Former smoker Past Alcohol Use History: None Reported Past Drug Use History: None Reported - Past Family History Father Family Medical History: Cancer Additional Family Medical History / Comment(s): passed from a SC at 63 Mother Family Medical History: Diabetes Mellitus, Myocardial Infarction (SC) Additional Family Medical History / Comment(s): passed from a SC at 63 Sister(s) Family Medical History: Cancer General Exam - General Exam Comments Initial Comments: General: The patient is awake and alert, in no distress, and does not appear acutely ill. Here because he's had a bloody nose since 8 this morning. Vital signs temp 98.4 pulse 73 respiratory rate 18 pulse ox 95% on 4 L. Blood pressure 111/72. Patient reports he did bleed a fair amount. He will receive normal saline bolus. Eye: Pupils are equal, round and reactive to light, extra-ocular movements are intact; there is normal conjunctiva bilaterally. No signs of icterus. Ears, nose, mouth and throat: There are moist mucous membranes and no oral lesions. Neck: The neck is supple, there is no tenderness.. Cardiovascular: There is a regular rate and rhythm. Holosystolic murmur, not a new finding per family. Respiratory: History of pulmonary fibrosis. Typical lung sounds of pulmonary fibrosis, crepitance Gastrointestinal: Soft, non-distended, non-tender abdomen without masses or organomegaly noted. There is no rebound or guarding present. No CVA tenderness. Bowel sounds are unremarkable. Back: No back pain Musculoskeletal: No peripheral edema. Previous amputation right forefoot secondary to diabetes. Neurological: CN II-XII intact, There are no obvious motor or sensory deficits. Coordination appears grossly intact. Speech is normal. Denies any neuro deficits. Skin: Skin is warm and dry and no rashes or lesions are noted. No rashes Psychiatric: Cooperative, Limitations: no limitations Course Vital Signs 02/24/19 15:06 Temperature 98.4 F Pulse Rate 73 Respiratory 18 Rate Blood Pressure 111/72 O2 Sat by Pulse 95 Oximetry Medical Decision Making - Medical Decision Making Medical decision making; this is a 74-year-old male here with a recurrent epistaxis, the patient does use 4 L of nasal oxygen via cannula. He reports this happens approximately once per month. He is also on Plavix. No other com plaints at this time. The patient's receiving 500 mL of normal saline was initially bled a fair amount. Vital signs show blood pressure 111/72 heart rate to 73. The patient's labs show white count of 10 hemoglobin 12 hematocrit 37. PT 10.1 INR 0.9. The patient is on Plavix. The patient's BUN is 23 creatinine 1.25 with a GFR 58. Glucose 266. The patient is an insulin-dependent diabetic. The patient had the right septum cauterized with silver nitrate sticks. No bleeding at this time. Vital signs remained stable. No bleeding. The patient will be receiving an albuterol updraft. She'll take the mask home to use to help with the nasal epithelium heel. He was also given 2 nose clamps should it start again. He was advised to contact his drywall worker to ask for advice concerning how to administer his oxygen without drying his nasal epithelium. Also advised to follow-up with family physician for referral to ENT if this problem persists. - Lab Data Result diagrams: 02/24/19 15:50 02/24/19 15:50 Lab Results 02/24/19 02/24/19 02/24/19 Range/Units 15:50 15:50 15:50 WBC 10.4 (3.8-10.6) k/uL RBC 4.47 (4.30-5.90) m/uL Hgb 12.8 L (13.0-17.5) gm/dL Hct 37.5 L (39.0-53.0) % MCV 84.0 (80.0-100.0) fL MCH 28.6 (25.0-35.0) pg MCHC 34.0 (31.0-37.0) g/dL RDW 17.0 H (11.5-15.5) % Plt Count 224 (150-450) k/uL Neutrophils % 75 % Lymphocytes % 14 % Monocytes % 7 % Eosinophils % 2 % Basophils % 0 % Neutrophils # 7.8 H (1.3-7.7) k/uL Lymphocytes # 1.5 (1.0-4.8) k/uL Monocytes # 0.8 (0-1.0) k/uL Eosinophils # 0.2 (0-0.7) k/uL Basophils # 0.0 (0-0.2) k/uL Anisocytosis Slight PT 10.1 (9.0-12.0) sec INR 0.9 (<1.2) Sodium 139 (137-145) mmol/L Potassium 4.8 (3.5-5.1) mmol/L Chloride 98 (98-107) mmol/L Carbon Dioxide 28 (22-30) mmol/L Anion Gap 13 mmol/L BUN 23 H (9-20) mg/dL Creatinine 1.25 (0.66-1.25) mg/dL Est GFR (CKD-EPI)AfAm 67 (>60 ml/min/1.73 sqM) Est GFR (CKD-EPI)NonAf 58 (>60 ml/min/1.73 sqM) Glucose 266 H (74-99) mg/dL Calcium 9.4 (8.4-10.2) mg/dL Disposition Clinical Impression: Anterior epistaxis, History of pulmonary fibrosis Disposition: HOME SELF-CARE Condition: Fair Instructions (If sedation given, give patient instructions): Nosebleed (ED) Additional Instructions: Use nasal clamps as directed. Administer your oxygen through nasal cannula but put it between your lips until your nose heals. Use provided mask as needed. Follow up with a drywall worker and her family doctor and ENT if needed. In emergency room as needed. Apply a and D ointment or bacitracin ointment along the nasal epithelium help protect the tissue from the constant oxygen via nasal cannula. Is patient prescribed a controlled substance at d/c from ED?: No Referrals: Roque Underwood DO [Primary Care Provider] - 1-2 days Time of Disposition: 16:39
[2019-02-24 16:07] LABS: Anisocytosis Slight; Basophils % (A) 0 %; Eosinophils # (A) 0.2 k/uL (0-0.7); Eosinophils % (A) 2 %; HCT 37.5 % (39.0-53.0); HGB 12.8 gm/dL (13.0-17.5); Lymphocytes # (A) 1.5 k/uL (1.0-4.8); Lymphocytes % (A) 14 %; MCH 28.6 pg (25.0-35.0); Monocytes # (A) 0.8 k/uL (0-1.0); Monocytes % (A) 7 %; Neutrophils # (A) 7.8 k/uL (1.3-7.7); Neutrophils % (A) 75 %; Platelet Count 224 k/uL (150-450); RBC 4.47 m/uL (4.30-5.90); WBC 10.4 k/uL (3.8-10.6)
[2019-02-24 16:08] LABS: INR 0.9 (<1.2); Prothrombin Time 10.1 sec (9.0-12.0)
[2019-02-24 16:10] LABS: Calcium 9.4 mg/dL (8.4-10.2); Potassium 4.8 mmol/L (3.5-5.1)
[2019-02-24] MEDS ORDERED: ALBUTEROL NEBULIZED 2.5 MG/3 ML INHALATION STA (16:36)
[2019-02-24] MEDS ORDERED: TRANEXAMIC ACID 1,000 MG/10 ML VIAL IRRIGATION ONE (17:16)
[2019-02-24 19:09] VITALS: BP 116/56; PULSE 68
== END 2019-02-24 19:08 | disposition home or self-care (01) ==
LOC: EC 15:03
DX: R04.0 Epistaxis (principal); R01.1 Cardiac murmur, unspecified; I11.0 Hypertensive heart disease with heart failure; I50.9 Heart failure, unspecified; I25.10 Atherosclerotic heart disease of native coronary artery without angina pectoris; I25.2 Old myocardial infarction; K21.9 Gastro-esophageal reflux disease without esophagitis; E78.5 Hyperlipidemia, unspecified; E11.51 Type 2 diabetes mellitus with diabetic peripheral angiopathy without gangrene; Z87.891 Personal history of nicotine dependence; Z79.4 Long term (current) use of insulin; Z79.02 Long term (current) use of antithrombotics/antiplatelets; Z79.82 Long term (current) use of aspirin; Z79.899 Other long term (current) drug therapy; Z86.718 Personal history of other venous thrombosis and embolism; Z95.1 Presence of aortocoronary bypass graft; Z95.5 Presence of coronary angioplasty implant and graft; Z98.890 Other specified postprocedural states; Z87.09 Personal history of other diseases of the respiratory system; Z89.431 Acquired absence of right foot; Z82.49 Family history of ischemic heart disease and other diseases of the circulatory system
CPT/HCPCS: 30901; 36415; 80048; 85025; 85610; 94640; 96360; 96361; 99284